=== PATIENT | male | born 1970 | race Caucasian/White ===

== ENCOUNTER 2018-08-16 04:23 | Emergency (ER) | payer OTHER ==
[~2018-08-16] VITALS: Ht 167.6 cm; Wt 72.6 kg
[2018-08-16] MEDS ORDERED: Thiamine HCl 100 MG in D5W 55 ML IVPB STA (04:27)
[2018-08-16 04:30] VITALS: BP 105/82
[2018-08-16] MEDS ORDERED: LORazepam Inj 2mg/ml 1ml IV ONE (04:30)
--- NOTE | 2018-08-16 04:36 | Emergency Room Report ---
History of Present Illness General Chief Complaint: Alcohol Intoxication Source: Patient, EMS Present Illness HPI Patient presents complaining of alcohol withdrawal. He drinks every day. He was recently admitted psychiatrically. He denies suicidal or homicidal ideation. He's been able to continue taking Seroquel and Wellbutrin even though he drinks. He keeps her fifth of hard liquor under his pillow at the [facility]. He continues drinking through the night. Hasn' t been drinking for 6 hours and feels the shakes and worried about possible DTs. The patient has some scrapes on his face. He is uncertain when they happened. He drinks to the point of blacking out. It's possible he could've had a seizure also. He denies tongue trauma. He denies any pain in his bones. No fevers, chills, cough, sore throat shortness of breath. No hematemesis or melena. The patient denies dysuria. Allergies: Coded Allergies: No Known Allergies (Unverified , 08/16/18) Patient History Past Medical History: see triage record Social History: Reports: smoking, alcohol use, drug use Social History Narrative at [facility] Reviewed Nursing Documentation: PMH: Agreed; PSxH: Agreed Nursing Documentation-PM Past Medical History: No History, Except For History Of Psychiatric Problem: Yes - schizo Review of Systems All Other Systems: negative except mentioned in HPI Physical Exam Vital Signs Date Time Temp Pulse Resp B/P (MAP) Pulse Ox O2 Delivery O2 Flow Rate FiO2 08/16/18 04:21 98.7 78 18 156/88 100 Room Air 98.8 Sp02 EP Interpretation: reviewed, normal General Appearance: no apparent distress, GCS 15, other - dishevelled Head: normocephalic Eyes: bilateral eye PERRL, bilateral eye EOMI, bilateral eye Scleral Injection ENT: moist mucus membranes - no lingual trauma, other - abrasions R lip and side of face, appear several days old Neck: supple Respiratory: lungs clear, normal breath sounds Cardiovascular #1: regular rate, rhythm Cardiovascular #2: 2+ radial (R) Gastrointestinal: normal inspection, normal bowel sounds, non tender, no mass, non-distended Musculoskeletal: back normal, gait/station normal, normal range of motion Neurologic: alert, oriented x3, motor strength/tone normal - slight tremor, DTRs symmetric, sensory intact, cerebellar normal, normal gait, speech normal - slightly pressured Psychiatric: no suicidal/homicidal ideation, anxious Skin: warm/dry, abrasions - R face Medical Decision Making Diagnostic Impression: Primary Impression: Acute alcoholic intoxication Qualified Codes: F10.929 - Alcohol use, unspecified with intoxication, unspecified Additional Impressions: Amphetamine abuse Schizophrenia Qualified Codes: F20.3 - Undifferentiated schizophrenia ER Course Patient presents with alleged alcohol withdrawal. I differential includes all called withdrawal, impending DTs, electrolyte imbalance, exacerbation of schizophrenia, anxiety amongst others. The patient will be evaluated with EKG, chest x-ray and labs. CT the head is not indicated at this time as he has a nonfocal neurologic exam. The patient will receive IV hydration, thiamine and Ativan. He will have cardiac monitoring while in the emergency department. No chest symptoms, CXR not indicated. Tetanus and bacitracin ordered. EKG without injury. Labs with normal CBC. CMP with min elevated glucose, alk phos. Calcium low, but also albumen also low. Urine tox + for amphetamines. BAL 175. Patient sleeping, easily awakened. Discussed findings and treatment plan. Patient stable for outpatient observation and treatment. Last Vital Signs Date Time Temp Pulse Resp B/P (MAP) Pulse Ox O2 Delivery O2 Flow Rate FiO2 08/16/18 06:11 77 16 115/82 93 Room Air 08/16/18 04:30 98.8 98.8 EKG Diagnostic Results Rate: normal Rhythm: NSR ST Segments: no acute changes Rhythm Strip Diag. Results EP Interpretation: yes Rhythm: NSR, no PVC's, no ectopy Last Vital Signs Date Time Temp Pulse Resp B/P (MAP) Pulse Ox O2 Delivery O2 Flow Rate FiO2 08/16/18 07:15 98.3 80 15 106/70 93 Room Air 98.3 Status: improved Disposition: HOME, SELF-CARE Condition: Improved Ken Bingham M.D. Aug 16, 2018 04:36
[2018-08-16 04:55] LABS: APPEARANCE,URINE CLEAR; BILIRUBIN, URINE NEGATIVE (NEGATIVE); GLUCOSE, URINE (UA) NEGATIVE (NEGATIVE); KETONES,URINE NEGATIVE (NEGATIVE); LEUKOCYTE ESTERASE ,URINE NEGATIVE (NEGATIVE); NITRITE,URINE NEGATIVE (NEGATIVE); PH,URINE 5 (4.5-8.0); UROBILINOGEN,URINE NORMAL MG/DL (0.0-1.0)
[2018-08-16 04:56] LABS: BASOPHILS % (AUTO) 0.8 % (0.0-2.0); EOSINOPHILS % (AUTO) 2.2 % (0.0-3.0); HEMATOCRIT 47.1 % (42.0-52.0); LYMPHOCYTES % (AUTO) 51.4 % (20.0-45.0); MEAN CORPUSCULAR VOLUME 83 FL (80-99); MONOCYTES % (AUTO) 10.6 % (1.0-10.0); PLATELET COUNT 289 K/UL (150-450); RED BLOOD COUNT 5.69 M/UL (4.70-6.10); WHITE BLOOD COUNT 7.6 K/UL (4.8-10.8)
[2018-08-16 04:59] LABS: COLOR,URINE YELLOW; PROTEIN,URINE NEGATIVE (NEGATIVE)
[2018-08-16 05:07] LABS: ANION GAP 13 mmol/L (5-15); BLOOD UREA NITROGEN 18 mg/dL (7-18); CALCIUM 7.9 MG/DL (8.5-10.1); CARBON DIOXIDE 23 MMOL/L (21-32); CHLORIDE 105 MMOL/L (98-107); POTASSIUM 3.5 MMOL/L (3.5-5.1); SODIUM 141 MMOL/L (136-145)
[2018-08-16 05:11] LABS: ALANINE AMINOTRANSFERASE 31 U/L (12-78); ALBUMIN 3.3 G/DL (3.4-5.0); ALBUMIN/GLOBULIN RATIO 0.8 (1.0-2.7); ALKALINE PHOSPHATASE 137 U/L (46-116); ASPARTATE AMINO TRANSFERASE 21 U/L (15-37); BILIRUBIN,TOTAL 0.2 MG/DL (0.2-1.0); CREATINE KINASE 62 U/L (26-308)
[2018-08-16] MEDS ORDERED: Tetanus/Diptheria/Pertussis Vaccine 0.5ml Syr IM ONE (05:15)
[2018-08-16] MEDS ORDERED: Bacitracin Oint UD TOPIC ONE (05:15)
[2018-08-16 06:11] VITALS: BP 115/82
[2018-08-16 07:15] VITALS: BP 106/70
--- NOTE | 2018-08-17 12:01 | Cardiology Report ---
APPROVED REPORT EKG Measurement Heart [id number] Normal sinus rhythm Normal ECG
== END 2018-08-16 07:22 | disposition home or self-care (01) ==
LOC: EDBD 04:23 → EMR 05:21
DX: F10.129 Alcohol abuse with intoxication, unspecified (principal); F15.10 Other stimulant abuse, uncomplicated; F20.9 Schizophrenia, unspecified
CPT/HCPCS: 36415; 80053; 80307; 80329; 81003; 82550; 85025; 90471; 90715; 93005; 96361; 96365; 96375; 99284

== ENCOUNTER 2018-08-28 09:42 | Emergency (ER) | payer OTHER ==
[~2018-08-28] VITALS: Ht 167.6 cm; Wt 68.0 kg
[2018-08-28 09:45] VITALS: BP 129/78
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
[2018-08-28] MEDS ORDERED: Lidocaine 1% MPF 10mg/ml 5ml INJ ONE (10:15)
[2018-08-28] MEDS ORDERED: Bacitracin Oint UD TOPIC ONE (10:15)
[2018-08-28 10:47] LABS: BASOPHILS % (AUTO) 1.1 % (0.0-2.0); EOSINOPHILS % (AUTO) 1.6 % (0.0-3.0); HEMATOCRIT 48.1 % (42.0-52.0); HEMOGLOBIN 16.2 G/DL (14.2-18.0); LYMPHOCYTES % (AUTO) 40.6 % (20.0-45.0); MEAN CORPUSCULAR VOLUME 82 FL (80-99); MONOCYTES % (AUTO) 6.5 % (1.0-10.0); NEUTROPHILS % (AUTO) 50.3 % (45.0-75.0); PLATELET COUNT 224 K/UL (150-450); RED BLOOD COUNT 5.89 M/UL (4.70-6.10); RED CELL DISTRIBUTION WIDTH 12.6 % (11.6-14.8); WHITE BLOOD COUNT 5.5 K/UL (4.8-10.8)
[2018-08-28 11:01] LABS: ANION GAP 11 mmol/L (5-15); BLOOD UREA NITROGEN 12 mg/dL (7-18); CARBON DIOXIDE 26 MMOL/L (21-32); CHLORIDE 105 MMOL/L (98-107); CREATININE 0.7 MG/DL (0.55-1.30); POTASSIUM 3.8 MMOL/L (3.5-5.1); SODIUM 142 MMOL/L (136-145)
[2018-08-28 11:09] LABS: ALANINE AMINOTRANSFERASE 35 U/L (12-78); ALBUMIN/GLOBULIN RATIO 0.7 (1.0-2.7); ALKALINE PHOSPHATASE 228 U/L (46-116); ASPARTATE AMINO TRANSFERASE 64 U/L (15-37); BILIRUBIN,TOTAL 0.2 MG/DL (0.2-1.0); CREATINE KINASE 115 U/L (26-308)
[2018-08-28 11:51] LABS: APPEARANCE,URINE CLEAR; BILIRUBIN, URINE NEGATIVE (NEGATIVE); GLUCOSE, URINE (UA) NEGATIVE (NEGATIVE); KETONES,URINE NEGATIVE (NEGATIVE); LEUKOCYTE ESTERASE ,URINE NEGATIVE (NEGATIVE); NITRITE,URINE NEGATIVE (NEGATIVE); PH,URINE 6 (4.5-8.0); PROTEIN,URINE NEGATIVE (NEGATIVE); UROBILINOGEN,URINE NORMAL MG/DL (0.0-1.0)
[2018-08-28 11:53] LABS: COLOR,URINE YELLOW
[2018-08-28] MEDS ORDERED: LORazepam Inj 2mg/ml 1ml IV ONE (12:45)
[2018-08-28 13:15] VITALS: BP 128/76
[2018-08-28 15:39] VITALS: BP 132/88
[2018-08-28] MEDS ORDERED: BACITRACIN15 GM TOPIC (16:05)
[2018-08-28 16:15] VITALS: BP 132/88
[2018-08-29] MEDS ORDERED: LIBRIUM10 MG ORAL (12:07)
== END 2018-08-28 16:16 | disposition home or self-care (01) ==
LOC: EDBD 09:42 → EMR 10:07
DX: S01.21XA Laceration without foreign body of nose, initial encounter (principal); S01.411A Laceration without foreign body of right cheek and temporomandibular area, initial encounter; Y04.2XXA Assault by strike against or bumped into by another person, initial encounter; Y92.9 Unspecified place or not applicable; I10 Essential (primary) hypertension; F15.10 Other stimulant abuse, uncomplicated; F10.129 Alcohol abuse with intoxication, unspecified
CPT/HCPCS: 36415; 80053; 80307; 80329; 81003; 82550; 85025; 96361; 96374; 99284

== ENCOUNTER 2018-08-28 20:15 | Inpatient (IN) | payer OTHER ==
[~2018-08-28] VITALS: Ht 167.6 cm; Wt 68.0 kg
[~2018-08-28 20:15] MED LIST: BACITRACIN15 GM TOPIC
[2018-08-28 20:18] VITALS: BP 137/109
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
[2018-08-28 20:58] LABS: BASOPHILS % (AUTO) 0.3 % (0.0-2.0); EOSINOPHILS % (AUTO) 0.8 % (0.0-3.0); HEMATOCRIT 47.6 % (42.0-52.0); HEMOGLOBIN 16.1 G/DL (14.2-18.0); LYMPHOCYTES % (AUTO) 23.5 % (20.0-45.0); MEAN CORPUSCULAR VOLUME 83 FL (80-99); MONOCYTES % (AUTO) 5.8 % (1.0-10.0); NEUTROPHILS % (AUTO) 69.5 % (45.0-75.0); PLATELET COUNT 234 K/UL (150-450); RED BLOOD COUNT 5.72 M/UL (4.70-6.10); RED CELL DISTRIBUTION WIDTH 12.2 % (11.6-14.8); WHITE BLOOD COUNT 9.6 K/UL (4.8-10.8)
[2018-08-28 21:15] LABS: ANION GAP 9 mmol/L (5-15); BLOOD UREA NITROGEN 11 mg/dL (7-18); CARBON DIOXIDE 32 MMOL/L (21-32); CHLORIDE 103 MMOL/L (98-107); CREATININE 0.9 MG/DL (0.55-1.30); POTASSIUM 3.4 MMOL/L (3.5-5.1); SODIUM 144 MMOL/L (136-145)
[2018-08-28 21:20] LABS: ALANINE AMINOTRANSFERASE 36 U/L (12-78); ALBUMIN/GLOBULIN RATIO 0.7 (1.0-2.7); ALKALINE PHOSPHATASE 226 U/L (46-116); ASPARTATE AMINO TRANSFERASE 41 U/L (15-37); BILIRUBIN,TOTAL 0.2 MG/DL (0.2-1.0)
[2018-08-28 22:04] VITALS: BP 132/87
[2018-08-28] MEDS ORDERED: LORazepam 1mg tab ORAL ONE (22:45)
[2018-08-28 23:29] VITALS: BP 120/79
[2018-08-28] MEDS ORDERED: LORazepam Inj 2mg/ml 1ml IV ONE (23:45)
[2018-08-29 00:02] VITALS: BP 120/79
[2018-08-29 01:34] VITALS: BP 125/92
[2018-08-29 04:00] VITALS: BP 132/92
[2018-08-29] MEDS ORDERED: LORazepam Inj 2mg/ml 1ml IV PRN (07:15)
[2018-08-29 08:00] VITALS: BP 144/87
[2018-08-29] MEDS ORDERED: D5 1/2NS w/KCl 20mEq 1,000 ML IV SCH (08:00)
[2018-08-29] MEDS ORDERED: Thiamine 100mg tab ORAL SCH (09:00)
[2018-08-29 12:00] VITALS: BP 115/76
[2018-08-29] MEDS ORDERED: LIBRIUM10 MG ORAL (12:07)
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
[2018-08-29] MEDS ORDERED: Thiamine 100mg in D5W 55ml IVPB SCH (14:30)
[2018-08-29] MEDS ORDERED: Folic Acid 1 MG, Magnesium Sulfate 2,000 MG, Multivitamin - 12 Injection 10 ML in NS 10... IV SCH (14:30)
--- NOTE | 2018-08-29 15:01 | History & Physical ---
History and Physical History & Physicial job # [id number] Milan Baker MD Aug 29, 2018 15:01
[2018-08-29 16:00] VITALS: BP 118/79
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
== END 2018-08-29 18:00 | disposition home or self-care (01) | DRG 775 ==
LOC: EDBD 20:15 → EMR 20:45 → EDBEDREQ 23:42 → 2E 08-29 00:02 → EDBEDREQ 08-29 00:52 → 2E 08-29 01:45
DX: F10.239 Alcohol dependence with withdrawal, unspecified (principal); F10.229 Alcohol dependence with intoxication, unspecified; F20.9 Schizophrenia, unspecified; I10 Essential (primary) hypertension; F15.10 Other stimulant abuse, uncomplicated
CPT/HCPCS: 36415; 80053; 80307; 80329; 82962; 83690; 85025; 87081; 96361; 96374; 96375; 99285; J2405

== ENCOUNTER 2018-09-08 04:40 | Emergency (ER) | payer OTHER ==
[~2018-09-08] VITALS: Ht 167.6 cm; Wt 72.6 kg
[~2018-09-08 04:40] MED LIST changes: +LIBRIUM10 MG ORAL
[2018-09-08] MEDS ORDERED: chlordiazePOXIDE 25mg Cap ORAL ONE (05:00)
[2018-09-08] MEDS ORDERED: LIBRIUM25 MG ORAL (05:01)
--- NOTE | 2018-09-08 05:01 | Emergency Room Report ---
History of Present Illness General Chief Complaint: To Be Triaged Source: Patient Present Illness [facility] This a 48-year-old male with a history of high blood pressure and alcohol abuse. He has a history of alcohol seizure. He presents with chief complaint of withdrawal symptoms. Onset about 2 hours ago. He felt nervous and shaky. Last drink was 4 hours ago. He was recently admitted for the same thing couple weeks ago. Denies any suicidal thoughts homicidal thought. Denies any drug abuse. Denies any other trauma. Allergies: Coded Allergies: No Known Allergies (Unverified , 08/16/18) Patient History Past Medical History: see triage record, old chart reviewed, HTN, seizures Past Surgical History: other Pertinent Family History: none Social History: Reports: alcohol use Immunizations: other Reviewed Nursing Documentation: PMH: Agreed; PSxH: Agreed Nursing Documentation-PMH Hx Cardiac Problems: Yes Hx Hypertension: Yes Hx Cancer: No Hx Gastrointestinal Problems: No Hx Seizures: Yes Review of Systems Eye: Denies: eye pain, blurred vision ENT: Denies: ear pain, nose congestion, throat swelling Respiratory: Denies: cough, shortness of breath Cardiovascular: Denies: chest pain, palpitations Gastrointestinal: Denies: abdominal pain, diarrhea, nausea, vomiting Musculoskeletal: Denies: back pain, joint pain Skin: Denies: rash Neurological: Denies: headache, numbness Endocrine: Denies: increased thirst, increased urine Hematologic/Lymphatic: Denies: easy bruising All Other Systems: negative except mentioned in HPI Physical Exam vitals unremarkable. Sp02 EP Interpretation: reviewed, normal General Appearance: well appearing, no apparent distress, alert Head: normocephalic, atraumatic Eyes: bilateral eye PERRL, bilateral eye EOMI ENT: hearing grossly normal, normal pharynx Neck: full range of motion, supple, no meningismus Respiratory: chest non-tender, lungs clear, normal breath sounds Cardiovascular #1: regular rate, rhythm, no murmur Gastrointestinal: normal bowel sounds, non tender, no mass, no organomegaly, no bruit, non-distended Musculoskeletal: back normal, gait/station normal, normal range of motion Psychiatric: mood/affect normal Skin: warm/dry Medical Decision Making Diagnostic Impression: Primary Impression: Alcohol withdrawal Qualified Codes: F10.230 - Alcohol dependence with withdrawal, uncomplicated ER Course Patient presents with symptom of alcohol withdrawal. Clinically heart rate stable. Blood pressure stable. Librium given here. I see no need for admission. We'll discharge home. No criteria for 5150. Status: improved Disposition: HOME, SELF-CARE Condition: Stable Scripts Chlordiazepoxide (Chlordiazepoxide HCl) 25 Mg Capsule 25 MG ORAL THREE TIMES A DAY, #15 CAP 0 Refills Prov: Jose Ellis MD 09/08/18 Additional Instructions: Follow-up with your doctor in 7 days. Stop Drinking alcohol. Go to rehabilitation. Return if worse. Jose Ellis MD Sep 08, 2018 05:01
[2018-09-08] MEDS ORDERED: ATENOLOL100 MG ORAL (05:19)
[2018-09-08 05:35] VITALS: BP 145/98
== END 2018-09-08 05:42 | disposition home or self-care (01) ==
LOC: EMR 05:14
DX: F10.239 Alcohol dependence with withdrawal, unspecified (principal); I10 Essential (primary) hypertension
CPT/HCPCS: 99282

== ENCOUNTER 2019-08-07 12:00 | Emergency (ER) | payer OTHER ==
[~2019-08-07] VITALS: Ht 167.6 cm; Wt 72.6 kg
[~2019-08-07 12:00] MED LIST changes: +ATENOLOL100 MG ORAL; +LIBRIUM25 MG ORAL
--- NOTE | 2019-08-07 12:00 | NUR ---
ED Nurse Note: pt is aaox4, vss, and stable. Pt from a sober living Facility " [facility]" and brought in by RA 69 due to not feeling well since this morning. Pt did not specify symptoms and states he needs to go to a hospital.
[2019-08-07] MEDS ORDERED: OLANZAPINE20 MG ORAL (12:03)
[2019-08-07] MEDS ORDERED: AMLODIPINE BES2.5 MG ORAL (12:03)
--- NOTE | 2019-08-07 12:07 | NUR ---
ED Nurse Note: Pt from a sober living Facility " [facility]" and brought in by RA 69 due to not feeling well since this morning. Pt did not specify symptoms and states he needs to go to a hospital. AAO x4 ambulates with steady gait with non labored breathing. Noted pt to be restless.
[2019-08-07] MEDS ORDERED: LORazepam Inj 2mg/ml 1ml IV ONE (12:15)
--- NOTE | 2019-08-07 12:27 | Diagnostic Imaging Report ---
Indication: Dyspnea Comparison: None A single view chest radiograph was obtained. Findings: Cardiomediastinal appearance is within normal limits for age. The lungs are clear. Pulmonary vascularity is appropriate. The diaphragmatic contour is smooth and costophrenic angles are sharp. No pleural effusions are identified. The bones are unremarkable. Impression: No acute findings
[2019-08-07] MEDS ORDERED: Nitroglycerin 2% oint pkt TOPIC ONE (12:45)
[2019-08-07 12:50] LABS: ANION GAP 7 mmol/L (5-15); BLOOD UREA NITROGEN 19 mg/dL (7-18); CALCIUM 8.7 MG/DL (8.5-10.1); CARBON DIOXIDE 28 MMOL/L (21-32); CHLORIDE 104 MMOL/L (98-107); CREATININE 1.1 MG/DL (0.55-1.30); POTASSIUM 3.7 MMOL/L (3.5-5.1); SODIUM 139 MMOL/L (136-145)
--- NOTE | 2019-08-07 12:50 | Emergency Room Report ---
History of Present Illness General Chief Complaint: General Complaint Source: Patient, Medical Record Present Illness HPI 48-year-old male presents with palpitations x3 days, feelings of anxiousness, he denies any chest pain shortness of breath, no aggravating or alleviating factors severity is moderate, constant patient denies any fevers chills cough congestion patient presents for evaluation. Allergies: Coded Allergies: No Known Allergies (Unverified , 08/16/18) Patient History Past Medical History: see triage record Reviewed Nursing Documentation: PMH: Agreed; PSxH: Agreed Nursing Documentation-PMH Hx Cardiac Problems: Yes Hx Hypertension: Yes Hx Cancer: No Hx Gastrointestinal Problems: No Hx Seizures: Yes Review of Systems All Other Systems: negative except mentioned in HPI Physical Exam Vital Signs Date Time Temp Pulse Resp B/P (MAP) Pulse Ox O2 Delivery O2 Flow Rate FiO2 08/07/19 11:57 97.9 75 16 147/102 (117) 100 Room Air Sp02 EP Interpretation: reviewed, normal General Appearance: well appearing, no apparent distress, alert Head: normocephalic, atraumatic Eyes: bilateral eye PERRL, bilateral eye EOMI ENT: uvula midline, moist mucus membranes Neck: supple, thyroid normal, supple/symm/no masses Respiratory: lungs clear, no respiratory distress, no retraction, no accessory muscle use Cardiovascular #1: normal peripheral pulses, regular rate, rhythm, no edema, no gallop, no murmur Gastrointestinal: non tender, soft, no guarding, no rebound Musculoskeletal: normal inspection Neurologic: alert, oriented x3 Psychiatric: anxious Skin: no rash, warm/dry Medical Decision Making Diagnostic Impression: Primary Impression: Palpitations ER Course 48-year-old male presents with palpitations x3 days, low suspicion for ACS low suspicion for thyroid storm, possible anxiety possible drug use Patient negative troponin. chest x-ray negative, EKG negative Patient is requesting Ativan will provide patient with a dose of Ativan here disposition home with return precautions Laboratory Tests Test 08/07/19 12:20 White Blood Count 7.3 K/UL (4.8-10.8) Red Blood Count 5.24 M/UL (4.70-6.10) Hemoglobin 14.3 G/DL (14.2-18.0) Hematocrit 43.0 % (42.0-52.0) Mean Corpuscular Volume 82 FL (80-99) Mean Corpuscular Hemoglobin 27.3 PG (27.0-31.0) Mean Corpuscular Hemoglobin Concent 33.3 G/DL (32.0-36.0) Red Cell Distribution Width 13.0 % (11.6-14.8) Platelet Count 306 K/UL (150-450) Mean Platelet Volume 6.7 FL (6.5-10.1) Neutrophils (%) (Auto) 54.6 % (45.0-75.0) Lymphocytes (%) (Auto) 33.2 % (20.0-45.0) Monocytes (%) (Auto) 8.9 % (1.0-10.0) Eosinophils (%) (Auto) 2.3 % (0.0-3.0) Basophils (%) (Auto) 1.0 % (0.0-2.0) Urine HCG, Qualitative Pending Sodium Level 139 MMOL/L (136-145) Potassium Level 3.7 MMOL/L (3.5-5.1) Chloride Level 104 MMOL/L (98-107) Carbon Dioxide Level 28 MMOL/L (21-32) Anion Gap 7 mmol/L (5-15) Blood Urea Nitrogen 19 mg/dL (7-18) H Creatinine 1.1 MG/DL (0.55-1.30) Estimate Glomerular Filtration Rate > 60 mL/min (>60) Glucose Level 82 MG/DL (74-106) Calcium Level 8.7 MG/DL (8.5-10.1) Total Bilirubin 0.4 MG/DL (0.2-1.0) Aspartate Amino Transferase (AST) 23 U/L (15-37) Alanine Aminotransferase (ALT) 23 U/L (12-78) Alkaline Phosphatase 114 U/L (46-116) Troponin I 0.000 ng/mL (0.000-0.056) Total Protein 7.5 G/DL (6.4-8.2) Albumin 3.4 G/DL (3.4-5.0) Globulin 4.1 g/dL Albumin/Globulin Ratio 0.8 (1.0-2.7) L Lipase 211 U/L (73-393) Thyroid Stimulating Hormone (TSH) 0.905 uiU/mL (0.358-3.740) Free Thyroxine 1.16 NG/DL (0.76-1.46) Free Triiodothyronine 2.1 pg/mL (2.3-4.2) L EKG Diagnostic Results EKG Time: 12:23 EP Interpretation: NSR, rate 65, QTc 432, no acute ST elevations, normal axis Chest X-Ray Diagnostic Results Chest X-Ray Diagnostic Results : Chest X-Ray Ordered: Yes # of Views/Limited/Complete: 1 View Indication: Other - Palpitations EP Interpretation: Yes Interpretation: no consolidation, no effusion, no pneumothorax, no acute cardiopulmonary disease Impression: No acute disease Electronically Signed by: Nii Fields MD Last Vital Signs Date Time Temp Pulse Resp B/P (MAP) Pulse Ox O2 Delivery O2 Flow Rate FiO2 08/07/19 12:06 88 15 Room Air 08/07/19 11:57 97.9 147/102 (117) 100 Disposition: HOME, SELF-CARE Condition: Stable Scripts Atenolol* (TENORMIN*) 100 Mg Tablet 100 MG ORAL DAILY, #30 TAB Prov: Nii Fields MD 08/07/19 Referrals: NON PHYSICIAN (PCP) [facility] Carlyle Piña. [facility] Patient Instructions: Palpitations Additional Instructions: The patient was provided with discharge instructions, notified to follow-up with a primary care doctor and or specialist in the next 24-48 hours, and to return to the ED if they have worsening of their symptoms. Please note that this report is being documented using [employer] technology. This can lead to erroneous entry secondary to incorrect interpretation by the dictating instrument. Nii Fields MD Aug 07, 2019 12:50
[2019-08-07 12:56] LABS: EOSINOPHILS % (AUTO) 2.3 % (0.0-3.0); HEMOGLOBIN 14.3 G/DL (14.2-18.0); LYMPHOCYTES % (AUTO) 33.2 % (20.0-45.0); MEAN CORPUSCULAR VOLUME 82 FL (80-99); MONOCYTES % (AUTO) 8.9 % (1.0-10.0); NEUTROPHILS % (AUTO) 54.6 % (45.0-75.0); PLATELET COUNT 306 K/UL (150-450); RED BLOOD COUNT 5.24 M/UL (4.70-6.10); WHITE BLOOD COUNT 7.3 K/UL (4.8-10.8)
[2019-08-07 13:06] LABS: ALANINE AMINOTRANSFERASE 23 U/L (12-78); ALBUMIN 3.4 G/DL (3.4-5.0); ALBUMIN/GLOBULIN RATIO 0.8 (1.0-2.7); ALKALINE PHOSPHATASE 114 U/L (46-116); ASPARTATE AMINO TRANSFERASE 23 U/L (15-37); BILIRUBIN,TOTAL 0.4 MG/DL (0.2-1.0)
[2019-08-07] MEDS ORDERED: ATENOLOL100 MG ORAL (13:44)
[2019-08-07] MEDS ORDERED: LORazepam 1mg tab ORAL ONE (13:45)
[2019-08-07 14:00] VITALS: BP 147/102
--- NOTE | 2019-08-07 14:00 | NUR ---
ER DISCHARGE NOTE: Patient is cleared to be discharged per ERMD, pt is aox4, on room air, with stable vital signs. pt was given dc and prescription instructions, pt was able to verbalize understanding, pt id band and iv site removed without complications. pt is able to ambulate with steady gait. pt took all belongings. pt states pain has improved.
[2019-08-09] MEDS ORDERED: AMLODIPINE BES2.5 MG ORAL (02:58)
[2019-08-09] MEDS ORDERED: ATENOLOL100 MG ORAL (02:58)
--- NOTE | 2019-08-11 14:27 | Cardiology Report ---
APPROVED REPORT EKG Measurement Heart [id number] Normal sinus rhythm Normal ECG
== END 2019-08-07 14:00 | disposition home or self-care (01) ==
LOC: EDBD 12:00 → EMR 12:24
DX: R00.2 Palpitations (principal); I10 Essential (primary) hypertension; F41.9 Anxiety disorder, unspecified
CPT/HCPCS: 36415; 71045; 80053; 83690; 84439; 84443; 84481; 84484; 85025; 93005; 96374; Z7502; 99284

== ENCOUNTER 2019-08-09 02:59 | Emergency (ER) | payer OTHER ==
[~2019-08-09] VITALS: Ht 165.1 cm; Wt 74.8 kg
[~2019-08-09 02:59] MED LIST changes: +AMLODIPINE BES2.5 MG ORAL; +OLANZAPINE20 MG ORAL
--- NOTE | 2019-08-09 03:36 | Emergency Room Report ---
History of Present Illness General Chief Complaint: Palpitations Source: Patient Present Illness HPI Disclaimer: Please note that this report is being documented using code[employer] technology. This can lead to erroneous entry secondary to incorrect interpretation by the dictating instrument. HPI: 48-year-old male with history of hypertension and anxiety presents for evaluation of palpitations. He was seen in the emergency department yesterday complaining of 3 days palpitations and tachycardia. He feels anxious and uneasy all the time but cannot recall a specific trigger for the symptoms. He denies any specific chest pain, shortness of breath, exertional dyspnea, orthopnea, abdominal pain or discomfort, nausea, vomiting, fever, chills or any other changes in his health. He states used to be treated with Ativan but is no longer seeing a PMD and therefore is no longer receiving Ativan. He was treated with anxiolytics yesterday and discharged to follow-up with 1 of the clinics which she has not been able to do yet. He states he has no change in his condition is simply wants another dose of medication to treat his anxiety. Former smoker. Not a diabetic, reports a family history of heart disease though occurring later in life and only in his father. PMH: Hypertension, anxiety PSH: Denies Allergies: Denies Social Hx: Former smoker, denies alcohol or drug use Allergies: Coded Allergies: No Known Allergies (Unverified , 08/16/18) Nursing Documentation-PMH Past Medical History: No History, Except For Hx Cardiac Problems: Yes Hx Hypertension: Yes Hx Cancer: No Hx Gastrointestinal Problems: No Hx Seizures: Yes Review of Systems All Other Systems: negative except mentioned in HPI Physical Exam Vital Signs Date Time Temp Pulse Resp B/P (MAP) Pulse Ox O2 Delivery O2 Flow Rate FiO2 08/09/19 02:53 98.2 83 18 141/94 (110) 98 Room Air General: Awake and alert, no acute distress HEENT: NC/AT. EOMI. Neck: Supple, trachea midline Chest Wall: No tenderness, no deformity Cardiovascular: RRR. S1 and S2 normal. No murmur appreciated Resp: Normal work of breathing. No cough, wheezing or crackles appreciated Skin: Intact. No abrasions, laceration or rash over the exposed skin MSK: Normal tone and bulk. Moving all extremities. No obvious deformity. Neuro: Awake and alert. Mentating appropriately. Medical Decision Making Diagnostic Impression: Primary Impression: Anxiety Additional Impression: Palpitations ER Course 48-year-old male with history of hypertension anxiety presents for evaluation of palpitations. Patient was seen in the emergency department yesterday for similar symptoms and states that nothing is changed. He has a prior history of alcohol abuse, amphetamine use but states he is not using these medications at this time. He arrives with stable vital signs, no tachycardia. EKG on arrival shows sinus rhythm, left axis deviation though this is minor, no ST segment changes otherwise appears unremarkable. This is unchanged from yesterday. The patient is denying chest pain and simply states he has an uneasy feeling consistent with his anxiety. We will treat him with oral anxiolytics and monitor in the emergency department. If his symptoms are not completely resolved we will advance work-up however at this time he is low risk for chest pain given his recent ED evaluation. EKG Diagnostic Results EKG Time: 02:54 Rate: normal Rhythm: NSR ST Segments: no acute changes Other Impression Sinus rhythm, left axis deviation, normal intervals, no ST segment changes. Rhythm Strip Diag. Results Rhythm Strip Time: 02:54 EP Interpretation: yes Rate: 80s Rhythm: NSR, no PVC's, no ectopy Reevaluation Time: 04:30 Last Vital Signs Date Time Temp Pulse Resp B/P (MAP) Pulse Ox O2 Delivery O2 Flow Rate FiO2 08/09/19 02:53 98.2 83 18 141/94 (110) 98 Room Air Reevaluation Impression Patient symptoms completely resolved after receiving oral Valium. His EKG is unchanged from his visit yesterday. He offers no new symptoms or complaints at this time. He understands that this is a chronic condition that he will require long-term medication for and a doctor to follow him regularly. We will provide names and numbers of clinics in the area for him to get in touch with to establish himself as a new patient. If symptoms persist he may require an outpatient cardiology evaluation however at this time do not believe it is emergent. He was instructed to return to the emergency department if he has any return of his symptoms. He understands and agrees with the treatment plan was discharged. 0522 Patient was discharged to the waiting room however is requesting a dose of his atenolol as he will be waiting for a taxi for some time and states he does not want to miss his morning dose. He denies any chest pain or shortness of breath and just wants his home medication prior to leaving the emergency department. We will provide it for him, 100 mg atenolol. Disposition: HOME, SELF-CARE Condition: Stable Referrals: Carlyle WEBBER,REFERRING (PCP) Carlos Pacheco MD Aug 09, 2019 03:36
--- NOTE | 2019-08-09 03:52 | NUR ---
ED Nurse Note: Patient brought in by ambulance for palpitations. Patient appears highly aggitated and is actively talking to himself. Will continue to monitor.
[2019-08-09 03:53] VITALS: BP 141/94
--- NOTE | 2019-08-09 04:21 | NUR ---
ED Nurse Note: Patient cleared for discharge to home via a cab. PAtient is A&Ox4, ambulatory with steady gait. Patient ID band removed, Patient verblized understanding of discharge instructions.
[2019-08-09] MEDS ORDERED: Atenolol 25mg tab ONE (05:29)
[2019-08-09] MEDS ORDERED: Atenolol 25mg tab ORAL ONE (05:30)
[2019-08-09 05:33] VITALS: BP 156/86
--- NOTE | 2019-08-09 05:37 | NUR ---
Patient came back, speaking with , asking for tenormin. Administered ordered dose, patient states he is happy now (BP-156/84-HR 86,RR-18).
== END 2019-08-09 04:28 | disposition home or self-care (01) ==
LOC: EDBD 02:59 → EMR 03:25
DX: F41.9 Anxiety disorder, unspecified (principal); R00.2 Palpitations; I10 Essential (primary) hypertension
CPT/HCPCS: 99283

== ENCOUNTER 2019-08-09 12:00 | Emergency (ER) | payer OTHER ==
[~2019-08-09] VITALS: Ht 167.6 cm; Wt 72.6 kg
--- NOTE | 2019-08-09 12:15 | NUR ---
ED Nurse Note: pt presensts to ED c/o anxiety and "pain in his chest" that he reports radiating from the middle of his chest to the left which he rates an 8/10. he was last seen here 2 days ago for similar symptoms. pt states that he is currently staying in [place] [facility]. His vital signs are stable and he does not appear to be in any distress.
[2019-08-09 12:20] VITALS: BP 126/98
[2019-08-09 12:38] VITALS: BP 101/61
--- NOTE | 2019-08-09 12:38 | NUR ---
ER DISCHARGE NOTE: Patient is cleared to be discharged per ERMD, pt is aox4, on room air, with stable vital signs. pt was given dc instructions and bus tokens. pt was able to verbalize understanding, pt id band removed without complications. I offered pt a meal and some clothing but he declined both. pt is able to ambulate with steady gait and took all belongings.
--- NOTE | 2019-08-09 13:52 | Emergency Room Report ---
History of Present Illness General Chief Complaint: General Complaint Source: Patient, Medical Record Present Illness HPI Patient presents reporting that he feels anxious and requires medication to make him feel better Denies any headache denies any chest pain he does feel a palpitation sensation Denies any vomiting or diarrhea Denies any dysuria frequency denies any recent drug abuse Patient reports that he has had problems requiring Anxiety medications before however feels that recently it has exacerbated Allergies: Coded Allergies: No Known Allergies (Unverified , 08/16/18) Patient History Past Medical History: see triage record Reviewed Nursing Documentation: PMH: Agreed; PSxH: Agreed Nursing Documentation-PMH Past Medical History: No History, Except For Hx Cardiac Problems: Yes Hx Hypertension: Yes Hx Cancer: No Hx Gastrointestinal Problems: No Hx Seizures: Yes Review of Systems All Other Systems: negative except mentioned in HPI Physical Exam Vital Signs Date Time Temp Pulse Resp B/P (MAP) Pulse Ox O2 Delivery O2 Flow Rate FiO2 08/09/19 12:09 97.2 75 18 125/77 (93) 95 Room Air Sp02 EP Interpretation: reviewed, normal General Appearance: well appearing, no apparent distress Head: normocephalic, atraumatic Eyes: bilateral eye PERRL, bilateral eye EOMI ENT: hearing grossly normal, normal pharynx, TMs + canals normal, uvula midline Neck: full range of motion, supple, no meningismus, no bony tend Respiratory: lungs clear, normal breath sounds, no rhonchi, no respiratory distress, no retraction, no accessory muscle use Cardiovascular #1: normal peripheral pulses, regular rate, rhythm, no edema, no gallop, no JVD, no murmur Gastrointestinal: normal bowel sounds, non tender, soft, no mass, no organomegaly, non-distended, no guarding, no hernia, no pulsatile mass, no rebound Genitourinary: no CVA tenderness Musculoskeletal: normal inspection Neurologic: oriented x3, responsive, api product manager III-XII nml as tested, motor strength/ tone normal, sensory intact Psychiatric: mood/affect normal Skin: no rash Lymphatic: normal inspection, no adenopathy Medical Decision Making Diagnostic Impression: Primary Impression: Palpitations ER Course Patient is a fairly complex patient with multiple differential to consideration including but not limited to cardiac cardiopulmonary and vascular emergencies On cardiac monitoring the patient is hemodynamically stable heart rate is in the 70s blood pressure is appropriate Patient does not show any classic symptoms of opiate or benzodiazepine withdrawal Patient has had several visits recently at this time review of cures also reveals recent multiple benzodiazepine medications that were filled at different facilities Patient is recommended to follow closely with primary physician for continued outpatient follow-up and return with any changes Rhythm Strip Diag. Results EP Interpretation: yes Rate: 72 Rhythm: NSR, no PVC's, no ectopy Last Vital Signs Date Time Temp Pulse Resp B/P (MAP) Pulse Ox O2 Delivery O2 Flow Rate FiO2 08/09/19 12:38 77 14 101/61 95 Room Air 08/09/19 12:20 97.2 Disposition: HOME, SELF-CARE Condition: Improved Referrals: [facility] Carlyle Sahu [facility]. [facility] Patient Instructions: Palpitations, [id number] Additional Instructions: Patient is provided with the discharge instructions notified to follow up with primary doctor in the next 2-3 days otherwise return to the er with any worsening symptoms. Please note that this report is being documented using [employer] technology. This can lead to erroneous entry secondary to incorrect interpretation by the dictating instrument. Maria Akbar DO Aug 09, 2019 13:52
== END 2019-08-09 12:38 | disposition home or self-care (01) ==
LOC: EMR 12:25
DX: R00.2 Palpitations (principal); F41.9 Anxiety disorder, unspecified; I10 Essential (primary) hypertension
CPT/HCPCS: 99282

== ENCOUNTER 2020-07-06 23:40 | Emergency (ER) | payer MEDICAID ==
[~2020-07-06] VITALS: Ht 157.5 cm; Wt 68.0 kg
[~2020-07-06 23:40] MED LIST changes: +PRILOSEC OTC20 MG ORAL
[2020-07-06 23:45] VITALS: BP 101/62
--- NOTE | 2020-07-06 23:45 | NUR ---
ED Nurse Note: brought in by franco ra 26 c/o cp onset tonight states midsternal nonradiating. 364 mg aspirin given en route. vss, nad, aaox4, ambulatory, ermd at bedside
--- NOTE | 2020-07-06 23:49 | Emergency Room Report ---
History of Present Illness General Chief Complaint: Chest Pain Source: Patient, Medical Record, EMS Present Illness HPI This a 49-year-old male well-known to EMS and here. He presents with chief complaint of chest pain. He has a history of methamphetamine abuse and alcohol abuse. He said he has not used meth for 2 days. Last drink was 4 hours ago. He complained of chest pain. He points to the epigastric and mid chest area. No radiation. Pain is constant. No diaphoresis. No exertional component. He said he felt like he is going to withdrawal. Similar symptom in the past. EMS said they ran on him 3 times today. Allergies: Coded Allergies: No Known Allergies (Unverified , 07/06/20) COVID-19 Screening Contact w/high risk pt: No Experienced COVID-19 symptoms?: No COVID-19 Testing performed ELECTROCARDIOGRAPH REPAIRER: No Patient History Past Medical History: see triage record, old chart reviewed Past Surgical History: none Pertinent Family History: none Social History: Reports: alcohol use, drug use Immunizations: other Reviewed Nursing Documentation: PMH: Agreed; PSxH: Agreed Nursing Documentation-PMH Past Medical History: No History, Except For Hx Cardiac Problems: Yes - hep c Hx Hypertension: Yes Hx Cancer: No Hx Gastrointestinal Problems: No Hx Seizures: Yes Review of Systems Eye: Denies: eye pain, blurred vision ENT: Denies: ear pain, nose congestion, throat swelling Respiratory: Denies: cough, shortness of breath Cardiovascular: Reports: chest pain; Denies: palpitations Gastrointestinal: Denies: abdominal pain, diarrhea, nausea, vomiting Musculoskeletal: Denies: back pain, joint pain Skin: Denies: rash Neurological: Denies: headache, numbness Endocrine: Denies: increased thirst, increased urine Hematologic/Lymphatic: Denies: easy bruising All Other Systems: negative except mentioned in HPI Physical Exam Vital Signs Date Time Temp Pulse Resp B/P (MAP) Pulse Ox O2 Delivery O2 Flow Rate FiO2 07/06/20 23:41 98.8 102 20 94/61 (72) 98 Room Air Vitals unremarkable Sp02 EP Interpretation: reviewed, normal General Appearance: well appearing, no apparent distress, alert Head: normocephalic, atraumatic Eyes: bilateral eye PERRL, bilateral eye EOMI ENT: hearing grossly normal, normal pharynx Neck: full range of motion, supple, no meningismus Respiratory: chest non-tender, lungs clear, normal breath sounds Cardiovascular #1: regular rate, rhythm, no murmur Gastrointestinal: normal bowel sounds, non tender, no mass, no organomegaly, no bruit, non-distended Musculoskeletal: back normal, normal range of motion, gait/station normal Neurologic: other - Mild tremulous Psychiatric: mood/affect normal Medical Decision Making Diagnostic Impression: Primary Impression: Chest pain Qualified Codes: R07.9 - Chest pain, unspecified Additional Impressions: Anxiety Amphetamine abuse Alcohol abuse ER Course Patient presents with chest pain. This probably secondary to anxiety. Is no evidence of ACS, PE, dissection to name a few. He has tried to do cocaine here in the ER. EKG Diagnostic Results Rate: normal Rhythm: NSR ST Segments: no acute changes Rhythm Strip Diag. Results EP Interpretation: yes Rate: 100 Rhythm: NSR, no PVC's, no ectopy Last Vital Signs Date Time Temp Pulse Resp B/P (MAP) Pulse Ox O2 Delivery O2 Flow Rate FiO2 07/06/20 23:41 98.8 102 20 94/61 (72) 98 Room Air Status: improved Disposition: HOME, SELF-CARE Condition: Stable Scripts Chlordiazepoxide (Chlordiazepoxide HCl) 25 Mg Capsule 25 MG ORAL THREE TIMES A DAY, #15 CAP 0 Refills Prov: Jose Ellis MD 07/07/20 Patient Instructions: Nonspecific Chest Pain Additional Instructions: Using drugs. Stop using alcohol. Go to rehab. Follow-up with your doctor in 7 days. Return if worse. Jose Ellis MD Jul 06, 2020 23:49
[2020-07-06 23:59] LABS: BASOPHILS % (AUTO) 1.6 % (0.0-2.0); HEMATOCRIT 44.2 % (42.0-52.0); HEMOGLOBIN 14.9 G/DL (14.2-18.0); LYMPHOCYTES % (AUTO) 37.3 % (20.0-45.0); MEAN CORPUSCULAR VOLUME 86 FL (80-99); NEUTROPHILS % (AUTO) 49.2 % (45.0-75.0); PLATELET COUNT 236 K/UL (150-450); RED BLOOD COUNT 5.15 M/UL (4.70-6.10); RED CELL DISTRIBUTION WIDTH 14.5 % (11.6-14.8); WHITE BLOOD COUNT 5.7 K/UL (4.8-10.8)
[2020-07-07] MEDS ORDERED: chlordiazePOXIDE 25mg Cap ORAL ONE
--- NOTE | 2020-07-07 | NUR ---
ED Nurse Note: blood collected and sent to lab
[2020-07-07 00:04] LABS: ANION GAP 9 mmol/L (5-15); BLOOD UREA NITROGEN 5 mg/dL (7-18); CALCIUM 8.2 MG/DL (8.5-10.1); CARBON DIOXIDE 30 MMOL/L (21-32); CHLORIDE 103 MMOL/L (98-107); CREATININE 1.1 MG/DL (0.55-1.30); POTASSIUM 2.9 MMOL/L (3.5-5.1); SODIUM 142 MMOL/L (136-145)
--- NOTE | 2020-07-07 00:15 | NUR ---
ED Nurse Note: Observed pt aligning white powder on a phone with a dollar bill rolled up against his nostril. removed belonging from patient premise and notified ermd.
[2020-07-07] MEDS ORDERED: LIBRIUM25 MG ORAL (00:21)
[2020-07-07 00:29] VITALS: BP 122/60
[2020-07-07 00:30] VITALS: BP 122/60
--- NOTE | 2020-07-07 00:30 | NUR ---
ER DISCHARGE NOTE: Patient is cleared to be discharged per ERMD, pt is aox4, on room air, with stable vital signs. pt was given dc and prescription instructions, pt was able to verbalize understanding, pt id band and iv site removed without complications. pt is able to ambulate with steady gait. pt took all belongings.
[2020-07-07] MEDS ORDERED: ATENOLOL50 MG ORAL (06:30)
== END 2020-07-07 00:30 | disposition home or self-care (01) ==
LOC: EDBD 23:40 → EDUNIT# 23:40 → EMR 23:59
DX: R07.9 Chest pain, unspecified (principal); F41.9 Anxiety disorder, unspecified; F15.10 Other stimulant abuse, uncomplicated; I10 Essential (primary) hypertension; G40.909 Epilepsy, unspecified, not intractable, without status epilepticus; Z86.19 Personal history of other infectious and parasitic diseases; Z72.89 Other problems related to lifestyle
CPT/HCPCS: 36415; 80048; 84484; 85025; 96360; Z7502; 99284

== ENCOUNTER 2020-07-07 06:12 | Emergency (ER) | payer MEDICAID ==
[~2020-07-07] VITALS: Ht 167.6 cm; Wt 74.8 kg
--- NOTE | 2020-07-07 06:27 | NUR ---
ED Nurse Note: Patient walked in d/t request for medication refill for atenolol d/t alcohol withdrawals. Patient aao x 4 and ambulatory with steady gait. Patient stable during assessment, no acute distress noted. ERMD at bedside.
[2020-07-07 06:28] VITALS: BP 105/72
[2020-07-07] MEDS ORDERED: ATENOLOL50 MG ORAL (06:30)
[2020-07-07 06:35] VITALS: BP 110/82
--- NOTE | 2020-07-07 06:35 | NUR ---
ER DISCHARGE NOTE: Patient is cleared to be discharged per ERMD, pt is aox4, on room air, with stable vital signs. pt was given dc and prescription instructions, pt was able to verbalize understanding, pt id band removed. pt is able to ambulate with steady gait. pt took all belongings.
--- NOTE | 2020-07-07 06:40 | Emergency Room Report ---
History of Present Illness General Chief Complaint: General Complaint Source: Patient Present Illness HPI Patient is a 49-year-old male presents for medication refill. Patient had reportedly recently run out of his atenolol. Prior history of hypertension. He states that he has been using methamphetamine earlier in the day. Denies any other complaints at this time.Patient requested atenolol. 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 Patient History Past Medical History: see triage record Reviewed Nursing Documentation: PMH: Agreed; PSxH: Agreed Nursing Documentation-PMH Past Medical History: No History, Except For Hx Cardiac Problems: Yes - hep c Hx Hypertension: Yes Hx Cancer: No Hx Gastrointestinal Problems: No Hx Seizures: Yes Review of Systems All Other Systems: negative except mentioned in HPI Physical Exam Vital Signs Date Time Temp Pulse Resp B/P (MAP) Pulse Ox O2 Delivery O2 Flow Rate FiO2 07/07/20 06:17 98.1 101 18 108/75 (86) 95 Room Air General Appearance: well appearing, no apparent distress, alert, GCS 15 Head: normocephalic, atraumatic ENT: hearing grossly normal, normal voice Neck: full range of motion, supple Respiratory: lungs clear, no respiratory distress, speaking full sentences Cardiovascular #1: normal inspection Gastrointestinal: normal inspection Musculoskeletal: normal inspection, gait/station normal, no calf tenderness Neurologic: alert, motor strength/tone normal, business liaison 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 Patient does not have any acute complaints. Patient does not appear to have any evidence of hypertension at this time. He was advised to follow-up with his primary care physician for further refills. He was given prescription for atenolol.At the time of discharge patient was ambulatory without assistance with a nonfocal neurologic exam. The patient is advised to follow up with primary care doctor . Patient is advised to return if any worsening condition or if any changes in status that are concerning. This report is dictated with [employer] videotape editor software which may occasionally lead to discrepancies related to use of this software. Last Vital Signs Date Time Temp Pulse Resp B/P (MAP) Pulse Ox O2 Delivery O2 Flow Rate FiO2 07/07/20 06:28 102 18 Room Air 07/07/20 06:28 98.1 105/72 97 Status: improved Disposition: HOME, SELF-CARE Condition: Stable Scripts Atenolol* (TENORMIN*) 50 Mg Tablet 50 MG ORAL DAILY, #30 TAB Prov: Geovanny Macario MD 07/07/20 Patient Instructions: Medicine Refill at the Emergency Department Geovanny Macario MD Jul 07, 2020 06:40
== END 2020-07-07 06:40 | disposition home or self-care (01) ==
LOC: EMR 06:40
DX: F15.90 Other stimulant use, unspecified, uncomplicated (principal); Z76.0 Encounter for issue of repeat prescription; I10 Essential (primary) hypertension; G40.909 Epilepsy, unspecified, not intractable, without status epilepticus; Z86.19 Personal history of other infectious and parasitic diseases; Z79.899 Other long term (current) drug therapy
CPT/HCPCS: 99282

== ENCOUNTER 2020-09-15 17:09 | Inpatient (IN) | payer MEDICAID ==
[~2020-09-15] VITALS: Ht 165.1 cm; Wt 72.6 kg
[~2020-09-15 17:09] MED LIST changes: +ATENOLOL50 MG ORAL; +BUPROPION XL300 MG ORAL; +BUSPIRONE HCL15 MG ORAL; +LISINOPRIL10 MG ORAL; +LISINOPRIL20 MG ORAL
[2020-09-15] MEDS ORDERED: Omnipaque-300 100ml vial INJ PRN (17:15)
[2020-09-15] MEDS ORDERED: Magnesium Citrate Liq Btl ORAL ONE (17:15)
--- NOTE | 2020-09-15 17:18 | Emergency Room Report ---
History of Present Illness General Chief Complaint: Abdominal Pain Source: Patient, Medical Record Present Illness HPI 50-year-old male history of hypertension presents with generalized abdominal pain x5 days, with nausea vomiting, constipation, patient is still passing gas, pain is moderate, constant described as achy no aggravating alleviating factors. 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: Yes COVID-19 Screening: Negative COVID-19 COVID-19 Testing Source: 2 weeks ago Patient History Past Medical History: see triage record Reviewed Nursing Documentation: PMH: Agreed; PSxH: Agreed Nursing Documentation-PMH Past Medical History: No History, Except For Hx Cardiac Problems: Yes - hep c Hx Hypertension: Yes Hx Cancer: No Hx Gastrointestinal Problems: No Hx Seizures: Yes Review of Systems All Other Systems: negative except mentioned in HPI Physical Exam Vital Signs Date Time Temp Pulse Resp B/P (MAP) Pulse Ox O2 Delivery O2 Flow Rate FiO2 09/15/20 17:05 98.2 139 20 128/86 (100) 97 Room Air Sp02 EP Interpretation: reviewed, normal General Appearance: well appearing, no apparent distress, alert Head: normocephalic, atraumatic Eyes: bilateral eye PERRL, bilateral eye EOMI ENT: uvula midline, moist mucus membranes Neck: supple, thyroid normal, supple/symm/no masses Respiratory: lungs clear, no respiratory distress, no retraction, no accessory muscle use Cardiovascular #1: normal peripheral pulses, regular rate, rhythm, no edema, no gallop, no murmur Gastrointestinal: soft, no guarding, no rebound, tenderness - Diffusely Musculoskeletal: normal inspection Neurologic: alert, oriented x3 Psychiatric: mood/affect normal Skin: no rash, warm/dry Medical Decision Making Diagnostic Impression: Primary Impression: Colitis ER Course 50-year-old male presents with acute nausea vomiting, abdominal pain differenti al includes appendicitis diverticulitis, colitis CT scan shows distal esophageal thickening, possible mass, patient is tolerating his orals Patient will be started on ceftriaxone, Flagyl Patient admitted to Dr. Pham Laboratory Tests Test 09/15/20 17:20 White Blood Count 5.4 K/UL (4.8-10.8) Red Blood Count 5.48 M/UL (4.70-6.10) Hemoglobin 16.3 G/DL (14.2-18.0) Hematocrit 49.4 % (42.0-52.0) Mean Corpuscular Volume 90 FL (80-99) Mean Corpuscular Hemoglobin 29.8 PG (27.0-31.0) Mean Corpuscular Hemoglobin Concent 33.1 G/DL (32.0-36.0) Red Cell Distribution Width 14.9 % (11.6-14.8) H Platelet Count 224 K/UL (150-450) Mean Platelet Volume 7.9 FL (6.5-10.1) Neutrophils (%) (Auto) 60.8 % (45.0-75.0) Lymphocytes (%) (Auto) 29.8 % (20.0-45.0) Monocytes (%) (Auto) 7.1 % (1.0-10.0) Eosinophils (%) (Auto) 1.0 % (0.0-3.0) Basophils (%) (Auto) 1.3 % (0.0-2.0) Urine Color Pale yellow Urine Appearance Clear Urine pH 8 (4.5-8.0) Urine Specific [place] 1.010 (1.005-1.035) Urine Protein Negative (NEGATIVE) Urine Glucose (UA) Negative (NEGATIVE) Urine Ketones Negative (NEGATIVE) Urine Blood Negative (NEGATIVE) Urine Nitrite Negative (NEGATIVE) Urine Bilirubin Negative (NEGATIVE) Urine Urobilinogen Normal MG/DL (0.0-1.0) Urine Leukocyte Esterase Negative (NEGATIVE) Sodium Level 139 MMOL/L (136-145) Potassium Level 3.6 MMOL/L (3.5-5.1) Chloride Level 103 MMOL/L (98-107) Carbon Dioxide Level 29 MMOL/L (21-32) Anion Gap 7 mmol/L (5-15) Blood Urea Nitrogen 4 mg/dL (7-18) L Creatinine 1.2 MG/DL (0.55-1.30) Estimated Glomerular Filtration Rate > 60 mL/min (>60) Glucose Level 109 MG/DL (74-106) H Calcium Level 8.7 MG/DL (8.5-10.1) Total Bilirubin 0.6 MG/DL (0.2-1.0) Aspartate Amino Transferase (AST) 75 U/L (15-37) H Alanine Aminotransferase (ALT) 67 U/L (12-78) Alkaline Phosphatase 162 U/L (46-116) H Troponin I 0.000 ng/mL (0.000-0.056) Total Protein 7.4 G/DL (6.4-8.2) Albumin 2.8 G/DL (3.4-5.0) L Globulin 4.6 g/dL Albumin/Globulin Ratio 0.6 (1.0-2.7) L Lipase 357 U/L (73-393) Microbiology Date/Time Source Procedure Growth Status 09/15/20 19:25 Nasopharynx SARS-CoV-2 RdRp Gene Assay - Final Complete EKG Diagnostic Results Troponin ordered: Yes When was troponin ordered?: Sep 15, 2020 - 1710 EKG Time: 17:40 EP Interpretation: SR, rate 74, QTc 466, no acute escalations, normal axis CT/MRI/US Diagnostic Results CT/MRI/US Diagnostic Results : Impression Procedure: CT Abdomen Pelvis w/Contrast EXAM: CT Abdomen and Pelvis With Intravenous Contrast CLINICAL HISTORY: ABD PAIN TECHNIQUE: Axial computed tomography images of the abdomen and pelvis with intravenous contrast. CTDI is 5.1 mGy and DLP is 254.6 mGy-cm. One or more of the following dose reduction techniques were used: automated exposure control, adjustment of the mA and/or kV according to patient size, use of iterative reconstruction technique. COMPARISON: No relevant prior studies available. FINDINGS: Lung bases: Unremarkable. Mediastinum: Thickening of the distal esophagus, could be from esophagitis or infiltrative lesion. ABDOMEN: Liver: Fatty liver. 7 mm enhancing lesion in the right lobe. Gallbladder and bile ducts: No calcified stones. No ductal dilation. Pancreas: Unremarkable. Spleen: Unremarkable. Adrenals: Unremarkable. Kidneys and ureters: Small low-attenuation foci in the kidneys. No hydronephrosis. Stomach and bowel: Possibly mild colonic thickening. PELVIS: Appendix: No findings to suggest acute appendicitis. Bladder: Unremarkable. Reproductive: Unremarkable. ABDOMEN and PELVIS: Intraperitoneal space: Unremarkable. Bones/joints: No acute fracture. Soft tissues: Unremarkable. Vasculature: Unremarkable. No abdominal aortic aneurysm. Lymph nodes: No enlarged lymph nodes. IMPRESSION: 1. Thickening of the distal esophagus, could be from esophagitis or infiltrative lesion. Small hiatal hernia. 2. Possibly mild colonic thickening. Correlate with GI symptoms. Dictated By: Pastora Pittman MD Electronically Signed By:Pastora Pittman MD Signed Date/Time09/15/201917 CC: Nii Fields MD Last Vital Signs Date Time Temp Pulse Resp B/P (MAP) Pulse Ox O2 Delivery O2 Flow Rate FiO2 09/15/20 17:05 98.2 139 20 128/86 (100) 97 Room Air Disposition: ADMITTED INPATIENT Condition: Stable Nii Fields MD Sep 15, 2020 17:18
[2020-09-15 17:28] VITALS: BP 122/81
[2020-09-15 17:35] LABS: APPEARANCE,URINE CLEAR; BILIRUBIN, URINE NEGATIVE (NEGATIVE); COLOR,URINE PALE YELLOW; GLUCOSE, URINE (UA) NEGATIVE (NEGATIVE); KETONES,URINE NEGATIVE (NEGATIVE); LEUKOCYTE ESTERASE ,URINE NEGATIVE (NEGATIVE); NITRITE,URINE NEGATIVE (NEGATIVE); PH,URINE 8 (4.5-8.0); PROTEIN,URINE NEGATIVE (NEGATIVE); UROBILINOGEN,URINE NORMAL MG/DL (0.0-1.0)
[2020-09-15 17:37] LABS: BASOPHILS % (AUTO) 1.3 % (0.0-2.0); HEMATOCRIT 49.4 % (42.0-52.0); HEMOGLOBIN 16.3 G/DL (14.2-18.0); LYMPHOCYTES % (AUTO) 29.8 % (20.0-45.0); MEAN CORPUSCULAR VOLUME 90 FL (80-99); MONOCYTES % (AUTO) 7.1 % (1.0-10.0); NEUTROPHILS % (AUTO) 60.8 % (45.0-75.0); PLATELET COUNT 224 K/UL (150-450); RED BLOOD COUNT 5.48 M/UL (4.70-6.10); RED CELL DISTRIBUTION WIDTH 14.9 % (11.6-14.8); WHITE BLOOD COUNT 5.4 K/UL (4.8-10.8)
[2020-09-15] MEDS ORDERED: Morphine Sulfate 4mg/ml Inj (IV USE ONLY) IVP ONE ×3 (17:45→19:30)
[2020-09-15 17:58] LABS: ANION GAP 7 mmol/L (5-15); BLOOD UREA NITROGEN 4 mg/dL (7-18); CALCIUM 8.7 MG/DL (8.5-10.1); CARBON DIOXIDE 29 MMOL/L (21-32); CHLORIDE 103 MMOL/L (98-107); CREATININE 1.2 MG/DL (0.55-1.30); POTASSIUM 3.6 MMOL/L (3.5-5.1); SODIUM 139 MMOL/L (136-145)
[2020-09-15 18:02] LABS: ALANINE AMINOTRANSFERASE 67 U/L (12-78); ALBUMIN 2.8 G/DL (3.4-5.0); ALBUMIN/GLOBULIN RATIO 0.6 (1.0-2.7); ALKALINE PHOSPHATASE 162 U/L (46-116); ASPARTATE AMINO TRANSFERASE 75 U/L (15-37); BILIRUBIN,TOTAL 0.6 MG/DL (0.2-1.0)
[2020-09-15 19:10] VITALS: BP 138/89
--- NOTE | 2020-09-15 19:19 | Diagnostic Imaging Report ---
EXAM: CT Abdomen and Pelvis With Intravenous Contrast CLINICAL HISTORY: ABD PAIN TECHNIQUE: Axial computed tomography images of the abdomen and pelvis with intravenous contrast. CTDI is 5.1 mGy and DLP is 254.6 mGy-cm. One or more of the following dose reduction techniques were used: automated exposure control, adjustment of the mA and/or kV according to patient size, use of iterative reconstruction technique. COMPARISON: No relevant prior studies available. FINDINGS: Lung bases: Unremarkable. Mediastinum: Thickening of the distal esophagus, could be from esophagitis or infiltrative lesion. ABDOMEN: Liver: Fatty liver. 7 mm enhancing lesion in the right lobe. Gallbladder and bile ducts: No calcified stones. No ductal dilation. Pancreas: Unremarkable. Spleen: Unremarkable. Adrenals: Unremarkable. Kidneys and ureters: Small low-attenuation foci in the kidneys. No hydronephrosis. Stomach and bowel: Possibly mild colonic thickening. PELVIS: Appendix: No findings to suggest acute appendicitis. Bladder: Unremarkable. Reproductive: Unremarkable. ABDOMEN and PELVIS: Intraperitoneal space: Unremarkable. Bones/joints: No acute fracture. Soft tissues: Unremarkable. Vasculature: Unremarkable. No abdominal aortic aneurysm. Lymph nodes: No enlarged lymph nodes. IMPRESSION: 1. Thickening of the distal esophagus, could be from esophagitis or infiltrative lesion. Small hiatal hernia. 2. Possibly mild colonic thickening. Correlate with GI symptoms.
[2020-09-15] MEDS ORDERED: DiphenhydrAMINE 50mg/ml Inj IVP ONE (19:30)
[2020-09-15] MEDS ORDERED: Metoclopramide 10mg/2ml Inj IVP ONE (19:30)
[2020-09-15] MEDS ORDERED: ATENOLOL50 MG ORAL (19:33)
[2020-09-15] MEDS ORDERED: cefTRIAXone 1 GM in NS 55 ML IVPB ONE (21:45)
[2020-09-15] MEDS ORDERED: metroNIDAZOLE 500mg tab ORAL ONE (21:45)
[2020-09-15 21:56] VITALS: BP 135/82
[2020-09-15] MEDS ORDERED: ZYPREXA10 MG ORAL (22:48)
[2020-09-15] MEDS ORDERED: BUPROPION XL300 MG ORAL (22:48)
[2020-09-15] MEDS ORDERED: Acetaminophen 650 MG SUPP RECTAL PRN (23:30)
[2020-09-16] VITALS (10 sets, daily range): BP systolic 126–162; BP diastolic 82–113
[2020-09-16] MEDS: Morphine Sulfate 2mg/ml Inj(IV/IM USE ONLY) IVP PRN ×5 (00:03→21:21)
[2020-09-16] MEDS: D5 1/2NS w/KCl 20mEq 1,000 ML IV SCH ×3 (00:03→21:20)
[2020-09-16] MEDS ORDERED: Varibar Honey 250ml MC PRN (07:00)
[2020-09-16] MEDS ORDERED: Varibar Pudding 230ml MC PRN (07:00)
[2020-09-16] MEDS ORDERED: Varibar Nectar 240ml MC PRN (07:00)
[2020-09-16] MEDS ORDERED: Varibar Thin Liquid powder 148gm MC PRN (07:00)
[2020-09-16 07:10] LABS: BASOPHILS % (AUTO) 1.2 % (0.0-2.0); EOSINOPHILS % (AUTO) 2.5 % (0.0-3.0); HEMATOCRIT 42.7 % (42.0-52.0); HEMOGLOBIN 13.8 G/DL (14.2-18.0); MEAN CORPUSCULAR VOLUME 91 FL (80-99); MONOCYTES % (AUTO) 8.3 % (1.0-10.0); PLATELET COUNT 169 K/UL (150-450); RED CELL DISTRIBUTION WIDTH 14.5 % (11.6-14.8); WHITE BLOOD COUNT 3.8 K/UL (4.8-10.8)
[2020-09-16 07:34] LABS: ALANINE AMINOTRANSFERASE 54 U/L (12-78); ALBUMIN 2.1 G/DL (3.4-5.0); ALBUMIN/GLOBULIN RATIO 0.5 (1.0-2.7); ALKALINE PHOSPHATASE 118 U/L (46-116); ANION GAP 6 mmol/L (5-15); ASPARTATE AMINO TRANSFERASE 60 U/L (15-37); BILIRUBIN,TOTAL 0.3 MG/DL (0.2-1.0); BLOOD UREA NITROGEN 2 mg/dL (7-18); CALCIUM 7.7 MG/DL (8.5-10.1); CARBON DIOXIDE 28 MMOL/L (21-32); CHLORIDE 104 MMOL/L (98-107); CHOLESTEROL 148 MG/DL (< 200); CREATININE 1.1 MG/DL (0.55-1.30); HDL CHOLESTEROL 39 MG/DL (40-60); POTASSIUM 3.5 MMOL/L (3.5-5.1); SODIUM 138 MMOL/L (136-145); TRIGLYCERIDES 95 MG/DL (30-150)
[2020-09-16 07:38] LABS: INR 1.1 (0.9-1.1)
[2020-09-16] MEDS ORDERED: Lidocaine 1% MPF 10mg/ml 5ml ONE (09:00)
[2020-09-16] MEDS ORDERED: Midazolam 2mg/2ml Inj ONE ×2 (09:00→15:03)
[2020-09-16] MEDS: Heparin 5000 units/ml inj SUBQ SCH ×2 (09:00→21:00)
--- NOTE | 2020-09-16 09:13 | Consultation ---
History of Present Illness General Chief Complaint: Abdominal Pain Present Illness Allergies: Coded Allergies: No Known Allergies (Unverified , 07/06/20) Medication History Scheduled Amlodipine Besylate* (Amlodipine Besylate*), 2.5 MG ORAL DAILY, (Reported) Atenolol* (Tenormin*), 100 MG ORAL DAILY, (Reported) Atenolol* (Tenormin*), 50 MG ORAL DAILY Atenolol* (Tenormin*), 50 MG ORAL BID, (Reported) Atenolol* (Tenormin*), 50 MG ORAL BID, (Reported) Bupropion Hcl* (Wellbutrin*), 300 MG ORAL DAILY, (Reported) Bupropion Hcl* (Wellbutrin*), 150 MG ORAL DAILY, (Reported) Buspirone Hcl* (Buspirone Hcl*), 15 MG ORAL TWICE A DAY, (Reported) Chlordiazepoxide (Chlordiazepoxide HCl), 25 MG ORAL THREE TIMES A DAY Lisinopril* (Lisinopril*), 10 MG ORAL DAILY, (Reported) Olanzapine* (Zyprexa*), 20 MG ORAL HS, (Reported) Patient History Healthcare decision maker N Resuscitation status Advanced Directive on File Physical Exam Last 24 Hour Vital Signs Date Time Temp Pulse Resp B/P (MAP) Pulse Ox O2 Delivery O2 Flow Rate FiO2 09/16/20 04:30 97.6 76 20 126/82 (97) 97 09/15/20 22:10 98.0 70 20 137/75 98 Room Air 09/15/20 21:56 98.3 75 20 135/82 98 Room Air 09/15/20 20:03 98.1 09/15/20 19:10 98.3 78 20 138/89 98 Room Air 09/15/20 17:28 98.1 84 20 122/81 98 Room Air 09/15/20 17:28 125 20 Room Air 09/15/20 17:05 98.2 139 20 128/86 (100) 97 Room Air Intake and Output 09/15/20 09/16/20 19:00 07:00 Intake Total 1000 ml 600 ml Output Total 250 ml Balance 1000 ml 350 ml Intake IV Total 1000 ml 600 ml Output Urine Total 250 ml # Voids 1 1 Laboratory Tests Test 09/15/20 17:20 09/16/20 06:30 White Blood Count 5.4 K/UL (4.8-10.8) 3.8 K/UL (4.8-10.8) L Red Blood Count 5.48 M/UL (4.70-6.10) 4.70 M/UL (4.70-6.10) Hemoglobin 16.3 G/DL (14.2-18.0) 13.8 G/DL (14.2-18.0) L Hematocrit 49.4 % (42.0-52.0) 42.7 % (42.0-52.0) Mean Corpuscular Volume 90 FL (80-99) 91 FL (80-99) Mean Corpuscular Hemoglobin 29.8 PG (27.0-31.0) 29.4 PG (27.0-31.0) Mean Corpuscular Hemoglobin Concent 33.1 G/DL (32.0-36.0) 32.4 G/DL (32.0-36.0) Red Cell Distribution Width 14.9 % (11.6-14.8) H 14.5 % (11.6-14.8) Platelet Count 224 K/UL (150-450) 169 K/UL (150-450) Mean Platelet Volume 7.9 FL (6.5-10.1) 7.7 FL (6.5-10.1) Neutrophils (%) (Auto) 60.8 % (45.0-75.0) 43.0 % (45.0-75.0) L Lymphocytes (%) (Auto) 29.8 % (20.0-45.0) 45.0 % (20.0-45.0) Monocytes (%) (Auto) 7.1 % (1.0-10.0) 8.3 % (1.0-10.0) Eosinophils (%) (Auto) 1.0 % (0.0-3.0) 2.5 % (0.0-3.0) Basophils (%) (Auto) 1.3 % (0.0-2.0) 1.2 % (0.0-2.0) Urine Color Pale yellow Urine Appearance Clear Urine pH 8 (4.5-8.0) Urine Specific [place] 1.010 (1.005-1.035) Urine Protein Negative (NEGATIVE) Urine Glucose (UA) Negative (NEGATIVE) Urine Ketones Negative (NEGATIVE) Urine Blood Negative (NEGATIVE) Urine Nitrite Negative (NEGATIVE) Urine Bilirubin Negative (NEGATIVE) Urine Urobilinogen Normal MG/DL (0.0-1.0) Urine Leukocyte Esterase Negative (NEGATIVE) Sodium Level 139 MMOL/L (136-145) 138 MMOL/L (136-145) Potassium Level 3.6 MMOL/L (3.5-5.1) 3.5 MMOL/L (3.5-5.1) Chloride Level 103 MMOL/L (98-107) 104 MMOL/L (98-107) Carbon Dioxide Level 29 MMOL/L (21-32) 28 MMOL/L (21-32) Anion Gap 7 mmol/L (5-15) 6 mmol/L (5-15) Blood Urea Nitrogen 4 mg/dL (7-18) L 2 mg/dL (7-18) L Creatinine 1.2 MG/DL (0.55-1.30) 1.1 MG/DL (0.55-1.30) Estimat Glomerular Filtration Rate > 60 mL/min (>60) > 60 mL/min (>60) Glucose Level 109 MG/DL (74-106) H 96 MG/DL (74-106) Calcium Level 8.7 MG/DL (8.5-10.1) 7.7 MG/DL (8.5-10.1) L Total Bilirubin 0.6 MG/DL (0.2-1.0) 0.3 MG/DL (0.2-1.0) Aspartate Amino Transf (AST/SGOT) 75 U/L (15-37) H 60 U/L (15-37) H Alanine Aminotransferase (ALT/SGPT) 67 U/L (12-78) 54 U/L (12-78) Alkaline Phosphatase 162 U/L (46-116) H 118 U/L (46-116) H Troponin I 0.000 ng/mL (0.000-0.056) Total Protein 7.4 G/DL (6.4-8.2) 6.1 G/DL (6.4-8.2) L Albumin 2.8 G/DL (3.4-5.0) L 2.1 G/DL (3.4-5.0) L Globulin 4.6 g/dL 4.0 g/dL Albumin/Globulin Ratio 0.6 (1.0-2.7) L 0.5 (1.0-2.7) L Lipase 357 U/L (73-393) Prothrombin Time 12.2 SEC (9.30-11.50) H Prothromb Time International Ratio 1.1 (0.9-1.1) Activated Partial Thromboplast Time 27 SEC (23-33) Pro-B-Type Natriuretic Peptide 296 pg/mL (0-125) H Triglycerides Level 95 MG/DL (30-150) Cholesterol Level 148 MG/DL (< 200) LDL Cholesterol 91 mg/dL (<100) HDL Cholesterol 39 MG/DL (40-60) L Cholesterol/HDL Ratio 3.8 (3.3-4.4) Thyroid Stimulating Hormone (TSH) 5.166 uiU/mL (0.358-3.740) Microbiology Date/Time Source Procedure Growth Status 09/15/20 22:00 Rectum Received 09/15/20 19:25 Nasopharynx SARS-CoV-2 RdRp Gene Assay - Final Complete Height (Feet): 5 Height (Inches): 6.00 Weight (Pounds): 160 Medications Current Medications Medications (Trade) Dose Ordered Sig/Pascual Route PRN Reason Start Time Stop Time Status Last Admin Dose Admin Acetaminophen (Tylenol) 650 mg Q4H PRN RECTAL Temp >100.5 09/15/20 23:30 10/15/20 23:29 Atenolol (Tenormin) 50 mg BID ORAL 09/16/20 09:00 10/16/20 08:59 Barium Sulfate (Varibar Honey) 250 ml NOW PRN RAD 09/16/20 07:00 09/19/20 06:57 Barium Sulfate (Varibar [place]) 240 ml NOW PRN MC RAD 09/16/20 07:00 09/19/20 06:57 Barium Sulfate (Varibar Pudding) 230 ml NOW PRN RAD 09/16/20 07:00 09/19/20 06:57 Barium Sulfate (Varibar Thin Liquid powder) 148 gm NOW PRN RAD 09/16/20 07:00 09/19/20 06:57 Bupropion HCl (Wellbutrin XL) 150 mg DAILY ORAL 09/16/20 09:00 10/16/20 08:59 Dextrose (Dextrose 50%) 25 ml Q30M PRN IV Hypoglycemia 09/15/20 23:30 12/14/20 23:29 Dextrose (Dextrose 50%) 50 ml Q30M PRN IV Hypoglycemia 09/15/20 23:30 12/14/20 23:29 Dextrose/ Electrolytes 1,000 ml @ 100 mls/hr Q10H IV 09/16/20 00:30 10/16/20 00:29 09/16/20 00:03 Heparin Sodium (Porcine) (Heparin 5000 units/ml) 5,000 units EVERY 12 HOURS SUBQ 09/16/20 09:00 10/31/20 08:59 Iohexol (OMNIPAQUE-300 100ml) 100 ml NOW PRN INJ Radiology Procedure 09/15/20 17:15 09/17/20 17:14 Lisinopril (PriniviL) 10 mg DAILY ORAL 09/16/20 09:00 10/16/20 08:59 Morphine Sulfate (Morphine Sulfate) 2 mg EVERY 3 HOURS PRN IVP Moderate Pain (Pain Scale 4-6) 09/15/20 23:30 09/22/20 23:29 09/16/20 04:54 Olanzapine (ZyPREXA) 20 mg BEDTIME ORAL 09/16/20 21:00 10/31/20 20:59 Ondansetron HCl (Zofran) 4 mg Q6H PRN IVP Nausea & Vomiting 09/15/20 23:30 10/15/20 23:29 09/15/20 23:54 Pantoprazole (Protonix) 40 mg DAILY IV 09/16/20 09:00 10/16/20 08:59 Assessment/Plan Assessment/Plan: Oncology Consultation DANIEL LEAVITT: Janet Pham [facility]: r/o malignancy DOS 09/16/2020 ID 50-year-old male history of hypertension presents with generalized abdominal pain x5 days, with nausea vomiting, constipation, patient is still passing gas, pain is moderate, constant described as achy no aggravating alleviating factors. 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 COVID-19 Screening: Negative COVID-19 COVID-19 Testing Source: 2 weeks ago Patient History Past Medical History: see triage record Reviewed Nursing Documentation: PMH: Agreed; PSxH: Agreed Nursing Documentation-PMH Past Medical History: No History, Except For Hx Cardiac Problems: Yes - hep c Hx Hypertension: Yes Hx Cancer: No Hx Gastrointestinal Problems: No Hx Seizures: Yes Review of Systems All Other Systems: negative except mentioned in HPI Physical Exam General: well appearing, no apparent distress, alert Heent uvula midline, moist mucus membranes, supple neck Respiratory: lungs clear, no respiratory distress Cardiovascular: normal peripheral pulses, regular rate Gastrointestinal: soft, no guarding, no rebound, ttp Musculoskeletal: normal inspection Neurologic: alert, oriented x3 Psychiatric: mood/affect normal Skin: no rash, warm/dry Labs: noted Imaging: reviewed Assessment and Recs # Esophageal distal thickening, r/o malignancy v other process --> imaging has been reviewed --> further eval with gi --> likely at some point will need endoscopy # Colitis --> ABX started on ceftriaxone, Flagyl # Fatty liver. 7 mm enhancing lesion in the right lobe. --> imaging us noted # Abd pain --> likely due to above # Nausea and vomiting --> zofran prn --> remains on ivfs # Dvt ppx ambulation --> heparin sq Appreciate consultation and dw Chacho Bonner MD Sep 16, 2020 09:13
[2020-09-16] MEDS: BuPROPion XL 150mg tab ORAL SCH (09:24)
[2020-09-16] MEDS: Pantoprazole Inj IV SCH (09:24)
[2020-09-16] MEDS: Lisinopril 20mg tab ORAL SCH (09:24)
[2020-09-16] MEDS ORDERED: LORazepam 1mg tab ORAL SCH (09:30)
--- NOTE | 2020-09-16 09:44 | History and Physical Report ---
DATE OF ADMISSION: 09/15/2020 DATE AND TIME SEEN: 09/16/2020 at 8 a.m. CONSULTANTS: 1. Lio Mike MD. 2. Richar Baires MD. 3. Dr. Mead. CHIEF COMPLAINT: Abdominal pain, constipation, nausea, vomiting. BRIEF HISTORY: This is a 50-year-old male who presented to [place] ER last night with increased abdominal pain for about 5 days, slight nausea and vomiting, and constipation. The patient was diagnosed with esophageal thickening, possible mass and admitted to medical floor. Currently, calm, in bed. No complaint. No chest pain. No shortness of breath. No nausea, vomiting, or diarrhea. PAST MEDICAL HISTORY: Include hypertension, schizophrenia, alcohol intoxication, anxiety, and drug abuse. PAST SURGICAL HISTORY: None. ALLERGIES: Denies. MEDICATIONS: Include olanzapine, bupropion, lisinopril, atenolol, pantoprazole, Zofran, morphine, metronidazole, ceftriaxone. SOCIAL HISTORY: Positive smoke. Occasional alcohol. Positive methamphetamine use three months ago. PHYSICAL EXAMINATION: GENERAL: Calm in bed, oriented x3, in no acute distress. VITAL SIGNS: Temperature 97 degrees, pulse 76, respirations 20, and blood pressure 126/82. CARDIOVASCULAR: No murmur. LUNGS: Distant and clear. ABDOMEN: Bowel sounds positive. Nontender. Nondistended. EXTREMITIES: No cyanosis or edema. NEUROLOGIC: The patient moves all extremities, slightly weak. LABORATORY AND DIAGNOSTIC DATA: Labs at this time show white count 3.8, otherwise CBC is normal. BMP show BUN 2. Calcium 10.7. AST 60, alkaline phosphatase 118. BNP is 296. Albumin 2.1. TSH 5.16. INR . Urinalysis is negative. ASSESSMENT: Abdominal pain, nausea, vomiting, constipation esophageal thickening versus mass, hypertension, schizophrenia, alcohol and drug abuse, malnutrition, and hypothyroid. PLAN: 1. Resume home medications. 2. Blood pressure and pain control. 3. NPO. 4. IV fluids. 5. GI followup. 6. We will add psychiatric evaluation, Dr. Longo and Dr. Berkowitz, endocrine evaluation. 7. We will check CBC and BMP in the morning. Santos Pham D.O. DR: MALA JOB#: [id number] CC:
--- NOTE | 2020-09-16 10:01 | Consultation ---
DATE OF CONSULTATION: 09/16/2020 GASTROENTEROLOGY CONSULTATION CONSULTING PHYSICIAN: Richar Baires MD. REFERRING PHYSICIAN: Santos Pham DO. CHIEF COMPLAINT: Abdominal pain. HISTORY OF PRESENT ILLNESS: This is a 50-year-old male with multiple medical problems including alcohol abuse, cocaine abuse, amphetamine abuse, schizophrenia, who came to the hospital with complaint of abdominal pain and constipation. A CT of the abdomen and pelvis showed evidence of questionable esophagitis versus esophageal mass, otherwise no acute findings. PAST MEDICAL HISTORY: Significant for, 1. History of hypertension. 2. Alcohol intoxication. 3. Amphetamine abuse. 4. Tobacco abuse. 5. Seizure disorder. 6. Schizophrenia. ALLERGIES: No known drug allergies. MEDICATIONS: Please see medication reconciliation list. FAMILY HISTORY: Noncontributory. According to him, both parents . He does not know what kind of cancer they from. SOCIAL HISTORY: As above. PAST SURGICAL HISTORY: None. REVIEW OF SYSTEMS: A 10-point review of systems was performed and pertinent positives in HPI. PHYSICAL EXAMINATION: VITAL SIGNS: Most recent vital signs, temperature is 97.6, pulse 76, respirations 20, blood pressure 126/82. HEENT: Normocephalic and atraumatic. Sclerae are anicteric. NECK: Supple. No evidence of obvious lymphadenopathy. CARDIOVASCULAR: Regular rate and rhythm. Plus S1-S2. LUNGS: Clear to auscultation bilaterally. ABDOMEN: Positive bowel sounds. Soft and nontender. No rebound. No guarding. No peritoneal sign. EXTREMITIES: No cyanosis, no clubbing, no edema. ASSESSMENT AND PLAN: This is a 50-year-old male with abdominal pain, most probably intoxicated. The patient seems to be mildly in withdrawal with shakes asking for some Klonopin or Ativan. The only concern GI heard at this time is severe constipation and questionable esophagitis versus esophageal mass. Plan is to treat constipation aggressively. The patient was informed of need for endoscopy and he agreed. We are going to try to get him scheduled for today. Meanwhile, we will put him on PPI. I want to thank Dr. Santos Pham for this kind referral. Richar Baires M.D. DR: RODRIGO JOB#: [id number] CC:
--- NOTE | 2020-09-16 14:51 | Pre-Procedure Note/Attestation ---
Pre-Procedure Note/Attestation Complete Prior to Procedure Planned Procedure: not applicable Procedure Narrative: egd Indications for Procedure Pre-Operative Diagnosis: ? esophageal mass Attestation I attest that I discussed the nature of the procedure; its benefits; risks and complications; and alternatives (and the risks and benefits of such alternatives), prior to the procedure, with the patient (or the patient's legal development representative). I attest that, if there was a reasonable possibility of needing a blood tra nsfusion, the patient (or the patient's legal development representative) was given the [facility] standardized written summary, pursuant to the Marcelo [place] Blood Safety Act ([place] Health and Safety Code # 1645, as amended). I attest that I re-evaluated the patient just prior to the surgery and that there has been no change in the patient's H&P, except as documented below: Richar Baires MD Sep 16, 2020 14:51
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
[2020-09-16] MEDS ORDERED: NS 500ML IVPB ONE (15:00)
--- NOTE | 2020-09-16 15:07 | Endoscopy Procedure Note ---
Endoscopy Procedure Note General Indication for Procedure: abd pain Procedures Performed: EGD Operative Findings/Diagnosis: gastritis Specimen: yes Pt Tolerated Procedure Well: Yes Estimated Blood Loss: none Anesthesia Anesthesiologist: barry Anesthesia: MAC Inserted Devices Implant(s) used?: No GI Core Measures 50 yrs or older w/o bx or poly: Not Applicable 10yrs. F/U recommended: Not Applicable Richar Baires MD Sep 16, 2020 15:07
[2020-09-16] MEDS ORDERED: Hydromorphone 0.5mg/0.5ml inj IVP PRN (15:15)
[2020-09-16] MEDS ORDERED: LORazepam Inj 2mg/ml 1ml IV PRN (15:15)
[2020-09-16] MEDS ORDERED: Atropine Sulfate 0.4mg/ml inj IVP PRN (15:15)
[2020-09-16] MEDS ORDERED: Labetalol 5mg/ml 20ml vial IV PRN (15:15)
[2020-09-16] MEDS ORDERED: Midazolam 2mg/2ml Inj IVP PRN (15:15)
[2020-09-16] MEDS ORDERED: LR 1000ml 1,000 ML IVLG SCH (15:15)
[2020-09-16] MEDS ORDERED: oxyCODONE HCL/Acetaminophen 5/325mg ORAL PRN (15:15)
[2020-09-16] MEDS ORDERED: Meperidine 25mg/1ml Inj (FOR RIGORS ONLY) IV PRN (15:15)
[2020-09-16] MEDS ORDERED: HYDROcodone/Acetamin 7.5/325 tab ORAL PRN (15:15)
[2020-09-16] MEDS ORDERED: DiphenhydrAMINE 50mg/ml Inj IVP PRN (15:15)
[2020-09-16] MEDS ORDERED: fentaNYL 100 mcg/2 mL IV PRN (15:15)
[2020-09-16] MEDS ORDERED: HYDROcodone/Acetamin 5/325 tab ORAL PRN (15:15)
--- NOTE | 2020-09-16 15:19 | Anethesia Preoperative Eval ---
Anesthesia Pre-op PMH/ROS General Date of Evaluation: Sep 16, 2020 Time of Evaluation: 15:08 Anesthesiologist: Andrey ASA Score: ASA 3 Mallampati Score Class I : Soft palate, uvula, fauces, pillars visible Class II: Soft palate, uvula, fauces visible Class III: Soft palate, base of uvula visible Class IV: Only hard plate visible Mallampati Classification: Class II Surgeon: Viry Diagnosis: Abd Pain Surgical Procedure: EGD Anesthesia History: none Social History: current smoker, alcohol use, drug use Family History: no anesthesia problems Allergies: Coded Allergies: No Known Allergies (Unverified , 07/06/20) Medications: see eMAR Patient NPO?: Yes Past Medical History Cardiovascular: Reports: HTN Neurologic/Psychiatric: Reports: other - Schizophrenia, Seizures Anesthesia Pre-op Phys. Exam Physician Exam Last Vital Signs Date Time Temp Pulse Resp B/P (MAP) Pulse Ox O2 Delivery O2 Flow Rate FiO2 09/16/20 11:51 97.0 67 19 131/99 (110) 98 09/16/20 09:00 Room Air Constitutional: NAD Neurologic: CN 2-12 intact Airway Exam Mallampati Score: Class II MO: full ROM: full Teeth: missing, intact Anesthesia Pre-op A/P Labs Hematology Test 09/15/20 17:20 09/16/20 06:30 White Blood Count 5.4 K/UL (4.8-10.8) 3.8 K/UL (4.8-10.8) L Red Blood Count 5.48 M/UL (4.70-6.10) 4.70 M/UL (4.70-6.10) Hemoglobin 16.3 G/DL (14.2-18.0) 13.8 G/DL (14.2-18.0) L Hematocrit 49.4 % (42.0-52.0) 42.7 % (42.0-52.0) Mean Corpuscular Volume 90 FL (80-99) 91 FL (80-99) Mean Corpuscular Hemoglobin 29.8 PG (27.0-31.0) 29.4 PG (27.0-31.0) Mean Corpuscular Hemoglobin Concent 33.1 G/DL (32.0-36.0) 32.4 G/DL (32.0-36.0) Red Cell Distribution Width 14.9 % (11.6-14.8) H 14.5 % (11.6-14.8) Platelet Count 224 K/UL (150-450) 169 K/UL (150-450) Mean Platelet Volume 7.9 FL (6.5-10.1) 7.7 FL (6.5-10.1) Neutrophils (%) (Auto) 60.8 % (45.0-75.0) 43.0 % (45.0-75.0) L Lymphocytes (%) (Auto) 29.8 % (20.0-45.0) 45.0 % (20.0-45.0) Monocytes (%) (Auto) 7.1 % (1.0-10.0) 8.3 % (1.0-10.0) Eosinophils (%) (Auto) 1.0 % (0.0-3.0) 2.5 % (0.0-3.0) Basophils (%) (Auto) 1.3 % (0.0-2.0) 1.2 % (0.0-2.0) Coagulation Test 09/16/20 06:30 Prothrombin Time 12.2 SEC (9.30-11.50) H Prothromb Time International Ratio 1.1 (0.9-1.1) Activated Partial Thromboplast Time 27 SEC (23-33) Chemistry Test 09/15/20 17:20 09/16/20 06:30 Sodium Level 139 MMOL/L (136-145) 138 MMOL/L (136-145) Potassium Level 3.6 MMOL/L (3.5-5.1) 3.5 MMOL/L (3.5-5.1) Chloride Level 103 MMOL/L (98-107) 104 MMOL/L (98-107) Carbon Dioxide Level 29 MMOL/L (21-32) 28 MMOL/L (21-32) Anion Gap 7 mmol/L (5-15) 6 mmol/L (5-15) Blood Urea Nitrogen 4 mg/dL (7-18) L 2 mg/dL (7-18) L Creatinine 1.2 MG/DL (0.55-1.30) 1.1 MG/DL (0.55-1.30) Estimat Glomerular Filtration Rate > 60 mL/min (>60) > 60 mL/min (>60) Glucose Level 109 MG/DL (74-106) H 96 MG/DL (74-106) Calcium Level 8.7 MG/DL (8.5-10.1) 7.7 MG/DL (8.5-10.1) L Total Bilirubin 0.6 MG/DL (0.2-1.0) 0.3 MG/DL (0.2-1.0) Aspartate Amino Transf (AST/SGOT) 75 U/L (15-37) H 60 U/L (15-37) H Alanine Aminotransferase (ALT/SGPT) 67 U/L (12-78) 54 U/L (12-78) Alkaline Phosphatase 162 U/L (46-116) H 118 U/L (46-116) H Troponin I 0.000 ng/mL (0.000-0.056) Total Protein 7.4 G/DL (6.4-8.2) 6.1 G/DL (6.4-8.2) L Albumin 2.8 G/DL (3.4-5.0) L 2.1 G/DL (3.4-5.0) L Globulin 4.6 g/dL 4.0 g/dL Albumin/Globulin Ratio 0.6 (1.0-2.7) L 0.5 (1.0-2.7) L Lipase 357 U/L (73-393) Pro-B-Type Natriuretic Peptide 296 pg/mL (0-125) H Triglycerides Level 95 MG/DL (30-150) Cholesterol Level 148 MG/DL (< 200) LDL Cholesterol 91 mg/dL (<100) HDL Cholesterol 39 MG/DL (40-60) L Cholesterol/HDL Ratio 3.8 (3.3-4.4) Thyroid Stimulating Hormone (TSH) 5.166 uiU/mL (0.358-3.740) Risk Assessment & Plan Assessment: ASA 3 Plan: TIVA Status Change Before Surgery: Casey Jones MD Sep 16, 2020 15:19
--- NOTE | 2020-09-16 15:20 | Immediate Post-Op Evaluation ---
Immediate Post-Op Evalulation Immediate Post-Op Evalulation Procedure: EGD Date of Evaluation: Sep 16, 2020 Time of Evaluation: 15:47 IV Fluids: 300 NS Blood Products: 0 Estimated Blood Loss: 2 Urinary Output: 0 Blood Pressure Systolic: 163 Blood Pressure Diastolic: 113 Pulse Rate: 82 Respiratory Rate: 16 O2 Sat by Pulse Oximetry: 100 Temperature (Fahrenheit): 98.3 Pain Score (1-10): 1 Nausea: No Vomiting: No Complications 0 Patient Status: awake, reacts, patent, none Hydration Status: adequate Casey Balderas MD Sep 16, 2020 15:20
--- NOTE | 2020-09-16 15:21 | 48 Hour Post Anesthesia Eval ---
Post Anesthesia Evaluation Procedure: EGD Date of Evaluation: Sep 16, 2020 Time of Evaluation: 17:56 Blood Pressure Systolic: 154 0: 98 Pulse Rate: 84 Respiratory Rate: 18 Temperature (Fahrenheit): 98.4 O2 Sat by Pulse Oximetry: 99 Airway: patent Nausea: No Vomiting: No Pain Intensity: 2 Hydration Status: adequate Cardiopulmonary Status: Stable Mental Status/LOC: patient returned to baseline Follow-up Care/Observations: 0 Post-Anesthesia Complications: 0 Follow-up care needed: N/A Casey Balderas MD Sep 16, 2020 15:21
--- NOTE | 2020-09-16 16:45 | Procedure Note ---
DATE OF PROCEDURE: 09/16/2020 ENDOSCOPIST: Richar Baires M.D. ANESTHESIOLOGIST: Casey Balderas M.D. PROCEDURE PERFORMED: Upper endoscopy with biopsy. INSTRUMENT USED: Olympus adult flexible endoscope. INDICATIONS FOR PROCEDURE: Nausea, vomiting, abdominal pain. The procedure, risks, benefits, and possible consequences, including hemorrhage, aspiration, perforation and infection, and alternative treatments, were explained to the patient/legal guardian by Dr. Richar Baires and the patient/legal guardian understood and accepted these risks. DESCRIPTION OF PROCEDURE: After informed consent was obtained and the patient was adequately sedated, the Olympus upper endoscope was advanced through the mouth into the second portion of the duodenum and retroflexion maneuver was performed In the stomach. The patient had severe erosive distal esophagitis. Small hiatal hernia. In the stomach, there was diffuse gastritis. Random biopsy from antrum was obtained to rule out H. pylori infection. The patient tolerated the procedure very well without any complication. SUMMARY OF FINDINGS: 1. Severe erosive distal esophagitis. 2. Small hiatal hernia. 3. Gastritis, status post biopsy. RECOMMENDATIONS: 1. Reflux measures, PPI. 2. Follow biopsy results and treat accordingly. I want to thank Dr. Santos Pham for this kind referral. Richar Baires M.D. DR: DANYELLE JOB#: [id number] CC: Santos Pham D.O.
[2020-09-16] MEDS: Docusate 100mg cap ORAL SCH (17:34)
[2020-09-16] MEDS: LORazepam 1mg tab ORAL PRN ×2 (17:34→23:43)
[2020-09-16] MEDS: OLANZapine 10mg tab ORAL SCH (21:20)
[2020-09-17] VITALS: BP 121/83
[2020-09-17] MEDS: Morphine Sulfate 2mg/ml Inj(IV/IM USE ONLY) IVP PRN ×5 (03:30→20:08)
[2020-09-17 04:00] VITALS: BP 131/79
[2020-09-17] MEDS: D5 1/2NS w/KCl 20mEq 1,000 ML IV SCH ×2 (05:59→15:50)
[2020-09-17 08:00] VITALS: BP 117/76
[2020-09-17 08:39] LABS: EOSINOPHILS % (AUTO) 2.5 % (0.0-3.0); HEMOGLOBIN 16.3 G/DL (14.2-18.0); LYMPHOCYTES % (AUTO) 42.4 % (20.0-45.0); MEAN CORPUSCULAR VOLUME 92 FL (80-99); MONOCYTES % (AUTO) 8.1 % (1.0-10.0); NEUTROPHILS % (AUTO) 46.1 % (45.0-75.0); PLATELET COUNT 207 K/UL (150-450); RED BLOOD COUNT 5.42 M/UL (4.70-6.10); RED CELL DISTRIBUTION WIDTH 14.2 % (11.6-14.8); WHITE BLOOD COUNT 5.7 K/UL (4.8-10.8)
[2020-09-17] MEDS: BuPROPion XL 150mg tab ORAL SCH (08:48)
[2020-09-17] MEDS: Heparin 5000 units/ml inj SUBQ SCH ×2 (08:48→20:14)
[2020-09-17] MEDS: Pantoprazole Inj IV SCH (08:49)
[2020-09-17] MEDS: Lisinopril 20mg tab ORAL SCH (08:49)
[2020-09-17] MEDS: Docusate 100mg cap ORAL SCH ×2 (08:49→17:07)
--- NOTE | 2020-09-17 08:51 | General Progress Note ---
Subjective ROS Limited/Unobtainable: Yes Allergies: Coded Allergies: No Known Allergies (Unverified , 07/06/20) Objective Last 24 Hour Vital Signs Date Time Temp Pulse Resp B/P (MAP) Pulse Ox O2 Delivery O2 Flow Rate FiO2 09/17/20 04:00 97.9 74 20 131/79 (96) 97 09/17/20 00:13 78 20 121/83 98 09/17/20 00:00 98.2 78 20 121/83 (96) 98 09/16/20 23:43 73 18 140/85 98 09/16/20 20:21 Room Air 09/16/20 20:00 97.3 72 20 144/93 (110) 96 09/16/20 18:04 73 20 140/85 97 09/16/20 17:34 73 20 141/92 97 09/16/20 17:34 73 141/92 09/16/20 16:15 96.6 20 141/92 (108) 97 09/16/20 16:00 97.6 73 14 149/84 97 Room Air 09/16/20 15:50 84 18 142/96 100 Simple Mask 6 09/16/20 15:40 84 21 137/109 100 Simple Mask 6 09/16/20 15:35 82 23 136/102 100 Simple Mask 6 09/16/20 15:32 84 18 99 09/16/20 15:31 82 16 100 09/16/20 15:29 98.3 86 21 162/113 100 Simple Mask 6 09/16/20 11:51 97.0 67 19 131/99 (110) 98 09/16/20 10:28 61 18 128/87 100 09/16/20 09:58 61 18 128/87 100 09/16/20 09:24 128/87 09/16/20 09:24 61 128/87 09/16/20 09:00 Room Air Intake and Output 09/16/20 09/17/20 19:00 07:00 Intake Total 1450 ml 600 ml Output Total 1100 ml Balance 1450 ml -500 ml Intake Oral 600 ml IV Total 1450 ml Output Urine Total 1100 ml # Voids 4 # Bowel Movements 1 Laboratory Tests 09/16/20 10:15: Urine Opiates Screen PositiveH, Urine Barbiturates Screen PositiveH, Phencyclidine (PCP) Screen Negative, Urine Amphetamines Screen PositiveH, Urine Benzodiazepines Screen PositiveH, Urine Cocaine Screen Negative, Urine Marijuana (THC) Screen Negative 09/17/20 07:30: White Blood Count [Pending], Red Blood Count [Pending], Hemoglobin [Pending], Hematocrit [Pending], Mean Corpuscular Volume [Pending], Mean Corpuscular Hemoglobin [Pending], Mean Corpuscular Hemoglobin Concent [Pending], Red Cell Distribution Width [Pending], Platelet Count [Pending], Mean Platelet Volume [Pending], Neutrophils (%) (Auto) [Pending], Lymphocytes (%) (Auto) [Pending], Monocytes (%) (Auto) [Pending], Eosinophils (%) (Auto) [Pending], Basophils (%) (Auto) [Pending], Sodium Level [Pending], Potassium Level [Pending], Chloride Level [Pending], Carbon Dioxide Level [Pending], Blood Urea Nitrogen [Pending], Creatinine [Pending], Estimat Glomerular Filtration Rate [Pending], Glucose Level [Pending], Calcium Level [Pending], Total Bilirubin [Pending], Aspartate Amino Transf (AST/SGOT) [Pending], Alanine Aminotransferase (ALT/SGPT) [Pend ing], Alkaline Phosphatase [Pending], Total Protein [Pending], Albumin [Pending], Globulin [Pending] Height (Feet): 5 Height (Inches): 5.00 Weight (Pounds): 160 General Appearance: no apparent distress EENT: normal ENT inspection Neck: supple Cardiovascular: normal rate Respiratory/Chest: decreased breath sounds Abdomen: normal bowel sounds, non tender, soft Extremities: non-tender Assessment/Plan Problem List: (1) Esophagitis ICD Codes: K20.90 - Esophagitis, unspecified without bleeding SNOMED: 96837403 (2) Anxiety ICD Codes: F41.9 - Anxiety disorder, unspecified SNOMED: 44981287 (3) Methamphetamine abuse ICD Codes: F15.10 - Other stimulant abuse, uncomplicated SNOMED: 286935025 (4) HTN (hypertension) ICD Codes: I10 - Essential (primary) hypertension SNOMED: 55751413 (5) Seizure ICD Codes: R56.9 - Unspecified convulsions SNOMED: 52348504 (6) Schizophrenia ICD Codes: F20.9 - Schizophrenia, unspecified SNOMED: 45649432 Assessment/Plan: s/p EGD reflux measures PPI carafate fu labs Richar Baires MD Sep 17, 2020 08:51
[2020-09-17] MEDS: LORazepam 1mg tab ORAL PRN ×2 (08:59→18:00)
[2020-09-17] MEDS: Sucralfate 1gm tab ORAL SCH ×4 (09:04→20:07)
[2020-09-17 09:06] LABS: ALANINE AMINOTRANSFERASE 58 U/L (12-78); ALBUMIN 2.3 G/DL (3.4-5.0); ALBUMIN/GLOBULIN RATIO 0.5 (1.0-2.7); ALKALINE PHOSPHATASE 131 U/L (46-116); ANION GAP 7 mmol/L (5-15); ASPARTATE AMINO TRANSFERASE 58 U/L (15-37); BILIRUBIN,TOTAL 0.3 MG/DL (0.2-1.0); BLOOD UREA NITROGEN 2 mg/dL (7-18); CALCIUM 8.3 MG/DL (8.5-10.1); CARBON DIOXIDE 27 MMOL/L (21-32); CHLORIDE 101 MMOL/L (98-107); CREATININE 1.1 MG/DL (0.55-1.30); POTASSIUM 3.4 MMOL/L (3.5-5.1); SODIUM 135 MMOL/L (136-145)
[2020-09-17 12:00] VITALS: BP 121/75
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
[2020-09-17] MEDS ORDERED: Magnesium Citrate Liq Btl ORAL SCH (15:00)
[2020-09-17 16:00] VITALS: BP 127/91
[2020-09-17] MEDS ORDERED: Fleet's Mineral Oil Enema RECTAL SCH (18:00)
--- NOTE | 2020-09-17 18:44 | Consultation ---
DATE OF CONSULTATION: 09/17/2020 ENDOCRINOLOGY CONSULTATION CONSULTING PHYSICIAN: Zechariah Berkowitz MD. REFERRING PHYSICIAN: Santos Pham D.O. REASON FOR CONSULTATION: Elevated TSH. HISTORY OF PRESENT ILLNESS: The patient is a 50-year-old male who presented to [facility] with abdominal pain for 5 days, nausea and vomiting, with a TSH of 5. Endocrinology was consulted. PAST MEDICAL HISTORY: 1. Schizophrenia. 2. Hypertension. 3. Alcohol intoxication. 4. Anxiety. 5. Drug use. PAST SURGICAL HISTORY: None. MEDICATIONS: Reviewed and reconciled. ALLERGIES TO MEDICATIONS: None. SOCIAL HISTORY: Smoking, alcohol, and drug use. PHYSICAL EXAMINATION: VITAL SIGNS: Blood pressure is 117/76, pulse of 78, temperature of 97.3. HEENT: Pupils are equal and reactive to light. Sclerae anicteric. NECK: No JVD. No thyromegaly. No bruit. LUNGS: Clear. HEART: Regular rate and rhythm. ABDOMEN: Positive bowel sounds. EXTREMITIES: No clubbing, cyanosis, or edema. DIAGNOSES: 1. Elevated TSH, doubt hypothyroidism, most likely due to sick euthyroid. 2. Abdominal pain. 3. History of drug abuse. 4. Psychiatric illness. PLAN: 1. I will repeat TSH, free T4, and free T3. 2. No need for thyroxine for now. 3. I will follow the results and further advise. Thank you, Dr. Pham, for the courtesy of this consultation. Zechariah Berkowitz M.D. DR: MARY/BRAYDON JOB#: [id number] CC: VINCENT
[2020-09-17 20:00] VITALS: BP 142/105
[2020-09-17] MEDS: OLANZapine 10mg tab ORAL SCH (20:08)
[2020-09-17] MEDS: LORazepam 0.5mg tab ORAL PRN (21:13)
--- NOTE | 2020-09-17 21:30 | General Progress Note ---
Subjective ROS Limited/Unobtainable: Yes Allergies: Coded Allergies: No Known Allergies (Unverified , 07/06/20) Objective Last 24 Hour Vital Signs Date Time Temp Pulse Resp B/P (MAP) Pulse Ox O2 Delivery O2 Flow Rate FiO2 09/17/20 21:13 88 23 146/102 98 09/17/20 18:30 76 18 128/90 99 09/17/20 18:00 73 18 127/91 97 09/17/20 17:07 73 127/91 09/17/20 16:00 97.7 73 18 127/91 (103) 97 09/17/20 12:00 97.3 76 18 121/75 (90) 96 09/17/20 09:29 76 18 115/79 98 09/17/20 09:00 Room Air 09/17/20 08:59 78 19 117/76 97 09/17/20 08:49 117/76 09/17/20 08:49 78 117/76 09/17/20 08:00 97.3 78 19 117/76 (90) 97 09/17/20 04:00 97.9 74 20 131/79 (96) 97 09/17/20 00:13 78 20 121/83 98 09/17/20 00:00 98.2 78 20 121/83 (96) 98 09/16/20 23:43 73 18 140/85 98 Intake and Output 09/16/20 09/17/20 19:00 07:00 Intake Total 1450 ml 600 ml Output Total 1100 ml Balance 1450 ml -500 ml Intake Oral 600 ml IV Total 1450 ml Output Urine Total 1100 ml # Voids 4 # Bowel Movements 1 Laboratory Tests 09/17/20 07:30: White Blood Count 5.7, Red Blood Count 5.42, Hemoglobin 16.3, Hematocrit 50.0, Mean Corpuscular Volume 92, Mean Corpuscular Hemoglobin 30.1, Mean Corpuscular Hemoglobin Concent 32.7, Red Cell Distribution Width 14.2, Platelet Count 207, Mean Platelet Volume 8.0, Neutrophils (%) (Auto) 46.1, Lymphocytes (%) (Auto) 42.4, Monocytes (%) (Auto) 8.1, Eosinophils (%) (Auto) 2.5, Basophils (%) (Auto) 1.0, Sodium Level 135L, Potassium Level 3.4L, Chloride Level 101, Carbon Dioxide Level 27, Anion Gap 7, Blood Urea Nitrogen 2L, Creatinine 1.1, Estimat Glomerular Filtration Rate > 60, Glucose Level 118H, Calcium Level 8.3L, Total Bilirubin 0.3, Aspartate Amino Transf (AST/SGOT) 58H, Alanine Aminotransferase (ALT/SGPT) 58, Alkaline Phosphatase 131H, Total Protein 6.7, Albumin 2.3L, Globulin 4.4, Albumin/Globulin Ratio 0.5L, Thyroid Stimulating Hormone (TSH) 4.183H, Free Thyroxine 1.20, Free Triiodothyronine 3.2 Height (Feet): 5 Height (Inches): 5.00 Weight (Pounds): 160 Assessment/Plan Problem List: (1) Palpitations ICD Codes: R00.2 - Palpitations SNOMED: 17218466 (2) Alcohol intoxication ICD Codes: F10.929 - Alcohol use, unspecified with intoxication, unspecified SNOMED: 94850990, 30234465 (3) Hypokalemia ICD Codes: E87.6 - Hypokalemia SNOMED: 47144077 (4) Colitis ICD Codes: K52.9 - Noninfective gastroenteritis and colitis, unspecified SNOMED: 02748604 (5) Schizophrenia ICD Codes: F20.9 - Schizophrenia, unspecified SNOMED: 67351967 (6) Seizure ICD Codes: R56.9 - Unspecified convulsions SNOMED: 95874694 (7) Malnutrition ICD Codes: E46 - Unspecified protein-calorie malnutrition SNOMED: 42783854 (8) Alcohol withdrawal ICD Codes: F10.239 - Alcohol dependence with withdrawal, unspecified SNOMED: 010782371 (9) Nausea ICD Codes: R11.0 - Nausea SNOMED: 179613141 (10) Amphetamine abuse ICD Codes: F15.10 - Other stimulant abuse, uncomplicated SNOMED: 03281495 (11) HTN (hypertension) ICD Codes: I10 - Essential (primary) hypertension SNOMED: 94915445 (12) Methamphetamine abuse ICD Codes: F15.10 - Other stimulant abuse, uncomplicated SNOMED: 851579408 (13) Esophagitis ICD Codes: K20.90 - Esophagitis, unspecified without bleeding SNOMED: 42891246 Status: progressing Assessment/Plan: polysubstance abuse htn r/o dt reviewed chart ashlyn hillity afebrile Maria Meyer MD Sep 17, 2020 21:30
--- NOTE | 2020-09-17 23:13 | Psychiatry Consultation ---
Psychiatry Consultation Psychiatry Consultation Chief Complaint: Abdominal Pain History of Present Illness: 50-year-old male with a history of multiple medical issues, who has been admitted to the hospital for medical stabilization. Patient is admitted for hypertension, schizophrenia, alcohol intoxication, anxiety. Patient is more awake and interacting more appropriately. The patient has episodes of confusion, agitation. PAST PSYCHIATRIC HISTORY: Anxiety and depression. PAST MEDICAL HISTORY: As above. ALLERGIES: No known drug allergies. SUBSTANCE ABUSE HISTORY: Significant for benzodiazepine, methamphetamine, barbiturate, and opiates. MENTAL STATUS EXAMINATION: Patient is awake, disoriented. Mood is anxious. Affect is flat. Thought process, there is a paucity of thought content. Thought content, no suicidal or homicidal ideation. Cognition is impaired. Insight and judgment is impaired. ASSESSMENT: Odin I Polysubstance dependence. Acute toxic encephalopathy. Odin II Deferred. Odin III None. Odin IV Moderate. Odin V 20. PLAN: 1. Olanzapine 20 mg. 2. Ativan p.r.n. 3. We will discontinue the Wellbutrin. 4. Patient should be discharged when medically stable. Allergies: Coded Allergies: No Known Allergies (Unverified , 07/06/20) Medication History Scheduled Amlodipine Besylate* (Amlodipine Besylate*), 2.5 MG ORAL DAILY, (Reported) Atenolol* (Tenormin*), 50 MG ORAL BID, (Reported) Bupropion Hcl* (Wellbutrin*), 300 MG ORAL DAILY, (Reported) Buspirone Hcl* (Buspirone Hcl*), 15 MG ORAL TWICE A DAY, (Reported) Chlordiazepoxide (Chlordiazepoxide HCl), 25 MG ORAL THREE TIMES A DAY Lisinopril* (Lisinopril*), 10 MG ORAL DAILY, (Reported) Olanzapine* (Zyprexa*), 20 MG ORAL HS, (Reported) Discontinued Medications Atenolol* (Tenormin*), 100 MG ORAL DAILY, (Reported) Discontinued Reason: Pt had allergic rxn Atenolol* (Tenormin*), 50 MG ORAL DAILY Discontinued Reason: Therapy completed Atenolol* (Tenormin*), 50 MG ORAL BID, (Reported) Discontinued Reason: MD discontinued med Bupropion Hcl* (Wellbutrin*), 150 MG ORAL DAILY, (Reported) Discontinued Reason: Therapy completed Objective Data Height (Feet): 5 Height (Inches): 5.00 Weight (Pounds): 160 Agnes Longo MD Sep 17, 2020 23:13
[2020-09-18] VITALS: BP 105/75
[2020-09-18] MEDS: D5 1/2NS w/KCl 20mEq 1,000 ML IV SCH (02:30)
[2020-09-18 04:00] VITALS: BP 121/90
[2020-09-18] MEDS: LORazepam 0.5mg tab ORAL PRN ×3 (06:34→20:29)
--- NOTE | 2020-09-18 07:02 | Hematology/Onc Progress Note ---
Assessment/Plan Assessment/Plan Assessment and Recs # Esophageal distal thickening, r/o malignancy v other process --> imaging has been reviewed --> further eval with gi, was completed --> likely at some point will need endoscopy-->completed no mass # Colitis --> ABX started on ceftriaxone, Flagyl # Fatty liver. 7 mm enhancing lesion in the right lobe. --> imaging us noted # Abd pain --> likely due to above # Nausea and vomiting --> zofran prn --> remains on ivfs # Dvt ppx ambulation --> heparin sq Appreciate consultation and douglas RN Subjective HEENT: Denies: no symptoms, eye pain, blurred vision, tearing, double vision, ear pain, ear discharge, nose pain, nose congestion, throat pain, throat swelling, mouth pain, mouth swelling, other Cardiovascular: Denies: no symptoms, chest pain, edema, irregular heart rate, lightheadedness, palpitations, syncope, other Respiratory: Denies: no symptoms, cough, shortness of breath, SOB with excertion, SOB at rest, sputum, wheezing, other Genitourinary: Denies: no symptoms, burning, discharge, frequency, flank pain, hematuria, incontinence, pain, urgency, other Neurologic/Psychiatric: Denies: no symptoms, anxiety, depressed, emotional problems, headache, numbness, paresthesia, pre-existing deficit, seizure, tingling, tremors, weakness, other Endocrine: Denies: no symptoms, excessive sweating, flushing, intolerance to cold, intolerance to heat, increased hunger, increased thirst, increased urine, unexplained weight gain, unexplained weight loss, other Hematologic/Lymphatic: Denies: no symptoms, anemia, easy bleeding, easy bruisin g, adenopathy, other Allergies: Coded Allergies: No Known Allergies (Unverified , 07/06/20) Subjective 09/18 labs reviewed, meds noted, no bleeding, egd completed Objective Objective Current Medications Medications (Trade) Dose Ordered Sig/Pascual Route PRN Reason Start Time Stop Time Status Last Admin Dose Admin Acetaminophen (Tylenol) 650 mg Q4H PRN RECTAL Temp >100.5 09/15/20 23:30 10/15/20 23:29 Atenolol (Tenormin) 50 mg BID ORAL 09/16/20 09:00 10/16/20 08:59 09/17/20 17:07 Barium Sulfate (Varibar Honey) 250 ml NOW PRN RAD 09/16/20 07:00 09/19/20 06:57 Barium Sulfate (Varibar [place]) 240 ml NOW PRN RAD 09/16/20 07:00 09/19/20 06:57 Barium Sulfate (Varibar Pudding) 230 ml NOW PRN RAD 09/16/20 07:00 09/19/20 06:57 Barium Sulfate (Varibar Thin Liquid powder) 148 gm NOW PRN RAD 09/16/20 07:00 09/19/20 06:57 Bupropion HCl (Wellbutrin XL) 150 mg DAILY ORAL 09/16/20 09:00 10/16/20 08:59 09/17/20 08:48 Dextrose (Dextrose 50%) 25 ml Q30M PRN IV Hypoglycemia 09/15/20 23:30 12/14/20 23:29 Dextrose (Dextrose 50%) 50 ml Q30M PRN IV Hypoglycemia 09/15/20 23:30 12/14/20 23:29 Dextrose/ Electrolytes 1,000 ml @ 100 mls/hr Q10H IV 09/16/20 00:30 10/16/20 00:29 09/17/20 15:50 Docusate Sodium (Colace) 100 mg TWICE A DAY ORAL 09/16/20 18:00 10/16/20 17:59 09/17/20 17:07 Heparin Sodium (Porcine) (Heparin 5000 units/ml) 5,000 units EVERY 12 HOURS SUBQ 09/16/20 09:00 10/31/20 08:59 09/17/20 20:14 Linaclotide (Linzess) 290 mcg BEFORE BREAKFAST ORAL 09/17/20 06:30 12/16/20 06:29 09/18/20 06:28 Lisinopril (PriniviL) 10 mg DAILY ORAL 09/16/20 09:00 10/16/20 08:59 09/17/20 08:49 Lorazepam (Ativan) 2 mg EVERY 4 HOURS PRN ORAL For Anxiety 09/17/20 21:00 09/24/20 20:59 09/18/20 06:34 Morphine Sulfate (Morphine Sulfate) 2 mg EVERY 3 HOURS PRN IVP Moderate Pain (Pain Scale 4-6) 09/15/20 23:30 09/22/20 23:29 09/17/20 20:08 Olanzapine (ZyPREXA) 20 mg BEDTIME ORAL 09/16/20 21:00 10/31/20 20:59 09/17/20 20:08 Ondansetron HCl (Zofran) 4 mg Q6H PRN IVP Nausea & Vomiting 09/15/20 23:30 10/15/20 23:29 09/15/20 23:54 Pantoprazole (Protonix) 40 mg EVERY 12 HOURS ORAL 09/17/20 21:00 10/17/20 20:59 09/17/20 20:07 Sucralfate (Carafate) 1 gm FOUR TIMES A DAY ORAL 09/17/20 09:00 12/16/20 08:59 09/17/20 20:07 Last 24 Hour Vital Signs Date Time Temp Pulse Resp B/P (MAP) Pulse Ox O2 Delivery O2 Flow Rate FiO2 09/18/20 06:34 91 23 136/88 97 09/18/20 04:00 96.6 84 16 121/90 (100) 97 09/18/20 00:00 96.8 85 16 105/75 (85) 97 09/17/20 21:43 76 18 138/88 97 09/17/20 21:13 88 23 146/102 98 09/17/20 21:00 Room Air 09/17/20 20:38 97.7 09/17/20 20:00 96.6 75 17 142/105 (117) 100 09/17/20 18:30 76 18 128/90 99 09/17/20 18:00 73 18 127/91 97 09/17/20 17:07 73 127/91 09/17/20 16:00 97.7 73 18 127/91 (103) 97 09/17/20 12:00 97.3 76 18 121/75 (90) 96 09/17/20 09:29 76 18 115/79 98 09/17/20 09:00 Room Air 09/17/20 08:59 78 19 117/76 97 09/17/20 08:49 117/76 09/17/20 08:49 78 117/76 09/17/20 08:00 97.3 78 19 117/76 (90) 97 09/17/20 04:00 97.9 74 20 131/79 (96) 97 09/17/20 00:13 78 20 121/83 98 09/17/20 00:00 98.2 78 20 121/83 (96) 98 09/16/20 23:43 73 18 140/85 98 09/16/20 20:21 Room Air 09/16/20 20:00 97.3 72 20 144/93 (110) 96 09/16/20 18:04 73 20 140/85 97 09/16/20 17:34 73 20 141/92 97 09/16/20 17:34 73 141/92 09/16/20 16:15 96.6 20 141/92 (108) 97 09/16/20 16:00 97.6 73 14 149/84 97 Room Air 09/16/20 15:50 84 18 142/96 100 Simple Mask 6 09/16/20 15:40 84 21 137/109 100 Simple Mask 6 09/16/20 15:35 82 23 136/102 100 Simple Mask 6 09/16/20 15:32 84 18 99 09/16/20 15:31 82 16 100 09/16/20 15:29 98.3 86 21 162/113 100 Simple Mask 6 09/16/20 11:51 97.0 67 19 131/99 (110) 98 09/16/20 10:28 61 18 128/87 100 09/16/20 09:58 61 18 128/87 100 09/16/20 09:24 128/87 09/16/20 09:24 61 128/87 09/16/20 09:00 Room Air 09/16/20 08:00 96.8 61 18 128/87 (101) 100 Intake and Output 09/17/20 09/18/20 19:00 07:00 Intake Total 1180 ml 2100 ml Output Total 700 ml Balance 480 ml 2100 ml Intake Oral 1080 ml 2000 ml IV Total 100 ml 100 ml Output Urine Total 700 ml # Voids 5 Labs Test 09/15/20 17:20 09/16/20 06:30 09/16/20 10:15 09/17/20 07:30 White Blood Count 5.4 K/UL (4.8-10.8) 3.8 K/UL (4.8-10.8) 5.7 K/UL (4.8-10.8) Red Blood Count 5.48 M/UL (4.70-6.10) 4.70 M/UL (4.70-6.10) 5.42 M/UL (4.70-6.10) Hemoglobin 16.3 G/DL (14.2-18.0) 13.8 G/DL (14.2-18.0) 16.3 G/DL (14.2-18.0) Hematocrit 49.4 % (42.0-52.0) 42.7 % (42.0-52.0) 50.0 % (42.0-52.0) Mean Corpuscular Volume 90 FL (80-99) 91 FL (80-99) 92 FL (80-99) Mean Corpuscular Hemoglobin 29.8 PG (27.0-31.0) 29.4 PG (27.0-31.0) 30.1 PG (27.0-31.0) Mean Corpuscular Hemoglobin Concent 33.1 G/DL (32.0-36.0) 32.4 G/DL (32.0-36.0) 32.7 G/DL (32.0-36.0) Red Cell Distribution Width 14.9 % (11.6-14.8) 14.5 % (11.6-14.8) 14.2 % (11.6-14.8) Platelet Count 224 K/UL (150-450) 169 K/UL (150-450) 207 K/UL (150-450) Mean Platelet Volume 7.9 FL (6.5-10.1) 7.7 FL (6.5-10.1) 8.0 FL (6.5-10.1) Neutrophils (%) (Auto) 60.8 % (45.0-75.0) 43.0 % (45.0-75.0) 46.1 % (45.0-75.0) Lymphocytes (%) (Auto) 29.8 % (20.0-45.0) 45.0 % (20.0-45.0) 42.4 % (20.0-45.0) Monocytes (%) (Auto) 7.1 % (1.0-10.0) 8.3 % (1.0-10.0) 8.1 % (1.0-10.0) Eosinophils (%) (Auto) 1.0 % (0.0-3.0) 2.5 % (0.0-3.0) 2.5 % (0.0-3.0) Basophils (%) (Auto) 1.3 % (0.0-2.0) 1.2 % (0.0-2.0) 1.0 % (0.0-2.0) Urine Color Pale yellow Urine Appearance Clear Urine pH 8 (4.5-8.0) Urine Specific [place] 1.010 (1.005-1.035) Urine Protein Negative (NEGATIVE) Urine Glucose (UA) Negative (NEGATIVE) Urine Ketones Negative (NEGATIVE) Urine Blood Negative (NEGATIVE) Urine Nitrite Negative (NEGATIVE) Urine Bilirubin Negative (NEGATIVE) Urine Urobilinogen Normal MG/DL (0.0-1.0) Urine Leukocyte Esterase Negative (NEGATIVE) Sodium Level 139 MMOL/L (136-145) 138 MMOL/L (136-145) 135 MMOL/L (136-145) Potassium Level 3.6 MMOL/L (3.5-5.1) 3.5 MMOL/L (3.5-5.1) 3.4 MMOL/L (3.5-5.1) Chloride Level 103 MMOL/L (98-107) 104 MMOL/L (98-107) 101 MMOL/L (98-107) Carbon Dioxide Level 29 MMOL/L (21-32) 28 MMOL/L (21-32) 27 MMOL/L (21-32) Anion Gap 7 mmol/L (5-15) 6 mmol/L (5-15) 7 mmol/L (5-15) Blood Urea Nitrogen 4 mg/dL (7-18) 2 mg/dL (7-18) 2 mg/dL (7-18) Creatinine 1.2 MG/DL (0.55-1.30) 1.1 MG/DL (0.55-1.30) 1.1 MG/DL (0.55-1.30) Estimat Glomerular Filtration Rate > 60 mL/min (>60) > 60 mL/min (>60) > 60 mL/min (>60) Glucose Level 109 MG/DL (74-106) 96 MG/DL (74-106) 118 MG/DL (74-106) Calcium Level 8.7 MG/DL (8.5-10.1) 7.7 MG/DL (8.5-10.1) 8.3 MG/DL (8.5-10.1) Total Bilirubin 0.6 MG/DL (0.2-1.0) 0.3 MG/DL (0.2-1.0) 0.3 MG/DL (0.2-1.0) Aspartate Amino Transf (AST/SGOT) 75 U/L (15-37) 60 U/L (15-37) 58 U/L (15-37) Alanine Aminotransferase (ALT/SGPT) 67 U/L (12-78) 54 U/L (12-78) 58 U/L (12-78) Alkaline Phosphatase 162 U/L (46-116) 118 U/L (46-116) 131 U/L (46-116) Troponin I 0.000 ng/mL (0.000-0.056) Total Protein 7.4 G/DL (6.4-8.2) 6.1 G/DL (6.4-8.2) 6.7 G/DL (6.4-8.2) Albumin 2.8 G/DL (3.4-5.0) 2.1 G/DL (3.4-5.0) 2.3 G/DL (3.4-5.0) Globulin 4.6 g/dL 4.0 g/dL 4.4 g/dL Albumin/Globulin Ratio 0.6 (1.0-2.7) 0.5 (1.0-2.7) 0.5 (1.0-2.7) Lipase 357 U/L (73-393) Prothrombin Time 12.2 SEC (9.30-11.50) Prothromb Time International Ratio 1.1 (0.9-1.1) Activated Partial Thromboplast Time 27 SEC (23-33) Pro-B-Type Natriuretic Peptide 296 pg/mL (0-125) Triglycerides Level 95 MG/DL (30-150) Cholesterol Level 148 MG/DL (< 200) LDL Cholesterol 91 mg/dL (<100) HDL Cholesterol 39 MG/DL (40-60) Cholesterol/HDL Ratio 3.8 (3.3-4.4) Thyroid Stimulating Hormone (TSH) 5.166 uiU/mL (0.358-3.740) 4.183 uiU/mL (0.358-3.740) Urine Opiates Screen Positive (NEGATIVE) Urine Barbiturates Screen Positive (NEGATIVE) Phencyclidine (PCP) Screen Negative (NEGATIVE) Urine Amphetamines Screen Positive (NEGATIVE) Urine Benzodiazepines Screen Positive (NEGATIVE) Urine Cocaine Screen Negative (NEGATIVE) Urine Marijuana (THC) Screen Negative (NEGATIVE) Free Thyroxine 1.20 NG/DL (0.76-1.46) Free Triiodothyronine 3.2 pg/mL (2.3-4.2) Height (Feet): 5 Height (Inches): 5.00 Weight (Pounds): 160 Objective General: well appearing, no apparent distress, alert Heent uvula midline, moist mucus membranes, supple neck Respiratory: lungs clear, no respiratory distress Cardiovascular: normal peripheral pulses, regular rate Gastrointestinal: soft, no guarding, no rebound, ttp Musculoskeletal: normal inspection Neurologic: alert, oriented x3 Psychiatric: mood/affect normal Skin: no rash, warm/dry Chacho Mead MD Sep 18, 2020 07:02
--- NOTE | 2020-09-18 07:15 | General Progress Note ---
Subjective ROS Limited/Unobtainable: Yes Allergies: Coded Allergies: No Known Allergies (Unverified , 07/06/20) Objective Last 24 Hour Vital Signs Date Time Temp Pulse Resp B/P (MAP) Pulse Ox O2 Delivery O2 Flow Rate FiO2 09/18/20 06:34 91 23 136/88 97 09/18/20 04:00 96.6 84 16 121/90 (100) 97 09/18/20 00:00 96.8 85 16 105/75 (85) 97 09/17/20 21:43 76 18 138/88 97 09/17/20 21:13 88 23 146/102 98 09/17/20 21:00 Room Air 09/17/20 20:38 97.7 09/17/20 20:00 96.6 75 17 142/105 (117) 100 09/17/20 18:30 76 18 128/90 99 09/17/20 18:00 73 18 127/91 97 09/17/20 17:07 73 127/91 09/17/20 16:00 97.7 73 18 127/91 (103) 97 09/17/20 12:00 97.3 76 18 121/75 (90) 96 09/17/20 09:29 76 18 115/79 98 09/17/20 09:00 Room Air 09/17/20 08:59 78 19 117/76 97 09/17/20 08:49 117/76 09/17/20 08:49 78 117/76 09/17/20 08:00 97.3 78 19 117/76 (90) 97 Intake and Output 09/17/20 09/18/20 19:00 07:00 Intake Total 1180 ml 2100 ml Output Total 700 ml Balance 480 ml 2100 ml Intake Oral 1080 ml 2000 ml IV Total 100 ml 100 ml Output Urine Total 700 ml # Voids 5 Laboratory Tests 09/17/20 07:30: White Blood Count 5.7, Red Blood Count 5.42, Hemoglobin 16.3, Hematocrit 50.0, Mean Corpuscular Volume 92, Mean Corpuscular Hemoglobin 30.1, Mean Corpuscular Hemoglobin Concent 32.7, Red Cell Distribution Width 14.2, Platelet Count 207, Mean Platelet Volume 8.0, Neutrophils (%) (Auto) 46.1, Lymphocytes (%) (Auto) 42.4, Monocytes (%) (Auto) 8.1, Eosinophils (%) (Auto) 2.5, Basophils (%) (Auto) 1.0, Sodium Level 135L, Potassium Level 3.4L, Chloride Level 101, Carbon Dioxide Level 27, Anion Gap 7, Blood Urea Nitrogen 2L, Creatinine 1.1, Estimat Glomerular Filtration Rate > 60, Glucose Level 118H, Calcium Level 8.3L, Total Bilirubin 0.3, Aspartate Amino Transf (AST/SGOT) 58H, Alanine Aminotransferase (ALT/SGPT) 58, Alkaline Phosphatase 131H, Total Protein 6.7, Albumin 2.3L, Globulin 4.4, Albumin/Globulin Ratio 0.5L, Thyroid Stimulating Hormone (TSH) 4.183H, Free Thyroxine 1.20, Free Triiodothyronine 3.2 Height (Feet): 5 Height (Inches): 5.00 Weight (Pounds): 160 EENT: normal ENT inspection Neck: supple Cardiovascular: normal peripheral pulses Respiratory/Chest: lungs clear Abdomen: normal bowel sounds, non tender, soft Extremities: non-tender Assessment/Plan Problem List: (1) Esophagitis ICD Codes: K20.90 - Esophagitis, unspecified without bleeding SNOMED: 31334973 (2) Anxiety ICD Codes: F41.9 - Anxiety disorder, unspecified SNOMED: 94743829 (3) Methamphetamine abuse ICD Codes: F15.10 - Other stimulant abuse, uncomplicated SNOMED: 005701098 (4) HTN (hypertension) ICD Codes: I10 - Essential (primary) hypertension SNOMED: 65610687 (5) Seizure ICD Codes: R56.9 - Unspecified convulsions SNOMED: 28166410 (6) Schizophrenia ICD Codes: F20.9 - Schizophrenia, unspecified SNOMED: 83292654 Status: progressing Assessment/Plan: s/p EGD reflux measures PPI carafate bowel regimen fu labs Richar Baires MD Sep 18, 2020 07:15
[2020-09-18 08:00] VITALS: BP 114/77
[2020-09-18] MEDS: Sucralfate 1gm tab ORAL SCH ×4 (08:29→20:28)
[2020-09-18] MEDS: BuPROPion XL 150mg tab ORAL SCH (08:30)
[2020-09-18] MEDS: Docusate 100mg cap ORAL SCH ×2 (08:31→17:11)
[2020-09-18] MEDS: Morphine Sulfate 2mg/ml Inj(IV/IM USE ONLY) IVP PRN ×4 (08:32→19:31)
[2020-09-18 08:35] LABS: BASOPHILS % (AUTO) 1.5 % (0.0-2.0); EOSINOPHILS % (AUTO) 4.5 % (0.0-3.0); HEMATOCRIT 45.3 % (42.0-52.0); HEMOGLOBIN 14.8 G/DL (14.2-18.0); LYMPHOCYTES % (AUTO) 46.3 % (20.0-45.0); MEAN CORPUSCULAR VOLUME 91 FL (80-99); MONOCYTES % (AUTO) 10.4 % (1.0-10.0); NEUTROPHILS % (AUTO) 37.3 % (45.0-75.0); PLATELET COUNT 174 K/UL (150-450); RED BLOOD COUNT 4.96 M/UL (4.70-6.10); RED CELL DISTRIBUTION WIDTH 14.2 % (11.6-14.8); WHITE BLOOD COUNT 3.8 K/UL (4.8-10.8)
[2020-09-18] MEDS: Heparin 5000 units/ml inj SUBQ SCH ×2 (08:40→20:31)
[2020-09-18] MEDS: Lisinopril 20mg tab ORAL SCH (08:44)
[2020-09-18 08:47] LABS: ANION GAP 6 mmol/L (5-15); BLOOD UREA NITROGEN 3 mg/dL (7-18); CARBON DIOXIDE 27 MMOL/L (21-32); CHLORIDE 104 MMOL/L (98-107); CREATININE 0.9 MG/DL (0.55-1.30); POTASSIUM 3.6 MMOL/L (3.5-5.1); SODIUM 137 MMOL/L (136-145)
[2020-09-18 12:00] VITALS: BP 144/97
--- NOTE | 2020-09-18 13:42 | General Progress Note ---
Subjective Allergies: Coded Allergies: No Known Allergies (Unverified , 07/06/20) All Systems: reviewed and negative except above Subjective events noted interval notes reviewed Objective Last 24 Hour Vital Signs Date Time Temp Pulse Resp B/P (MAP) Pulse Ox O2 Delivery O2 Flow Rate FiO2 09/18/20 13:08 71 19 144/97 100 09/18/20 12:25 97.0 09/18/20 12:00 97.0 71 19 144/97 (113) 100 09/18/20 09:02 97.2 09/18/20 09:00 Room Air 09/18/20 08:44 114/77 09/18/20 08:31 79 114/77 09/18/20 08:00 97.2 79 18 114/77 (89) 100 09/18/20 07:04 91 23 136/88 97 09/18/20 06:34 91 23 136/88 97 09/18/20 04:00 96.6 84 16 121/90 (100) 97 09/18/20 00:00 96.8 85 16 105/75 (85) 97 09/17/20 21:43 76 18 138/88 97 09/17/20 21:13 88 23 146/102 98 09/17/20 21:00 Room Air 09/17/20 20:38 97.7 09/17/20 20:00 96.6 75 17 142/105 (117) 100 09/17/20 18:30 76 18 128/90 99 09/17/20 18:00 73 18 127/91 97 09/17/20 17:07 73 127/91 09/17/20 16:00 97.7 73 18 127/91 (103) 97 Intake and Output 09/17/20 09/18/20 19:00 07:00 Intake Total 1180 ml 2100 ml Output Total 700 ml Balance 480 ml 2100 ml Intake Oral 1080 ml 2000 ml IV Total 100 ml 100 ml Output Urine Total 700 ml # Voids 5 Laboratory Tests 09/18/20 06:30: White Blood Count 3.8L, Red Blood Count 4.96, Hemoglobin 14.8, Hematocrit 45.3, Mean Corpuscular Volume 91, Mean Corpuscular Hemoglobin 29.9, Mean Corpuscular Hemoglobin Concent 32.8, Red Cell Distribution Width 14.2, Platelet Count 174, Mean Platelet Volume 7.6, Neutrophils (%) (Auto) 37.3L, Lymphocytes (%) (Auto) 46.3H, Monocytes (%) (Auto) 10.4H, Eosinophils (%) (Auto) 4.5H, Basophils (%) (Auto) 1.5, Sodium Level 137, Potassium Level 3.6, Chloride Level 104, Carbon Dioxide Level 27, Anion Gap 6, Blood Urea Nitrogen 3L, Creatinine 0.9, Estimat Glomerular Filtration Rate > 60, Glucose Level 126H, Calcium Level 8.0L Height (Feet): 5 Height (Inches): 5.00 Weight (Pounds): 160 General Appearance: no apparent distress Neck: normal alignment Cardiovascular: normal rate Respiratory/Chest: lungs clear Abdomen: normal bowel sounds Objective Current Medications Medications (Trade) Dose Ordered Sig/Pascual Route PRN Reason Start Time Stop Time Status Last Admin Dose Admin Acetaminophen (Tylenol) 650 mg Q4H PRN RECTAL Temp >100.5 09/15/20 23:30 10/15/20 23:29 Atenolol (Tenormin) 50 mg BID ORAL 09/16/20 09:00 10/16/20 08:59 09/18/20 08:31 Barium Sulfate (Varibar Honey) 250 ml NOW PRN RAD 09/16/20 07:00 09/19/20 06:57 Barium Sulfate (Varibar [place]) 240 ml NOW PRN RAD 09/16/20 07:00 09/19/20 06:57 Barium Sulfate (Varibar Pudding) 230 ml NOW PRN RAD 09/16/20 07:00 09/19/20 06:57 Barium Sulfate (Varibar Thin Liquid powder) 148 gm NOW PRN RAD 09/16/20 07:00 09/19/20 06:57 Bupropion HCl (Wellbutrin XL) 150 mg DAILY ORAL 09/16/20 09:00 10/16/20 08:59 09/18/20 08:30 Dextrose (Dextrose 50%) 25 ml Q30M PRN IV Hypoglycemia 09/15/20 23:30 12/14/20 23:29 Dextrose (Dextrose 50%) 50 ml Q30M PRN IV Hypoglycemia 09/15/20 23:30 12/14/20 23:29 Docusate Sodium (Colace) 100 mg TWICE A DAY ORAL 09/16/20 18:00 10/16/20 17:59 09/18/20 08:31 Heparin Sodium (Porcine) (Heparin 5000 units/ml) 5,000 units EVERY 12 HOURS SUBQ 09/16/20 09:00 10/31/20 08:59 09/18/20 08:40 Linaclotide (Linzess) 290 mcg BEFORE BREAKFAST ORAL 09/17/20 06:30 12/16/20 06:29 09/18/20 06:28 Lisinopril (PriniviL) 10 mg DAILY ORAL 09/16/20 09:00 10/16/20 08:59 09/17/20 08:49 Lorazepam (Ativan) 2 mg EVERY 4 HOURS PRN ORAL For Anxiety 09/17/20 21:00 09/24/20 20:59 09/18/20 13:08 Morphine Sulfate (Morphine Sulfate) 2 mg EVERY 3 HOURS PRN IVP Moderate Pain (Pain Scale 4-6) 09/15/20 23:30 09/22/20 23:29 09/18/20 11:55 Olanzapine (ZyPREXA) 20 mg BEDTIME ORAL 09/16/20 21:00 10/31/20 20:59 09/17/20 20:08 Ondansetron HCl (Zofran) 4 mg Q6H PRN IVP Nausea & Vomiting 09/15/20 23:30 10/15/20 23:29 09/15/20 23:54 Pantoprazole (Protonix) 40 mg EVERY 12 HOURS ORAL 09/17/20 21:00 10/17/20 20:59 09/18/20 08:31 Sucralfate (Carafate) 1 gm FOUR TIMES A DAY ORAL 09/17/20 09:00 12/16/20 08:59 09/18/20 11:59 Assessment/Plan Problem List: (1) Elevated TSH ICD Codes: R79.89 - Other specified abnormal findings of blood chemistry SNOMED: 362912812 Status: progressing Assessment/Plan: TSH repeated and improved free T4 and T3 are normal this most likely represent "sick euthyroid" no need to start thyroxine repeat thyroid function as OP in 1 month I sign off Zechariah Berkowitz MD Sep 18, 2020 13:42
--- NOTE | 2020-09-18 13:47 | General Progress Note ---
Subjective ROS Limited/Unobtainable: Yes Allergies: Coded Allergies: No Known Allergies (Unverified , 07/06/20) Objective Last 24 Hour Vital Signs Date Time Temp Pulse Resp B/P (MAP) Pulse Ox O2 Delivery O2 Flow Rate FiO2 09/18/20 13:38 71 19 144/97 100 09/18/20 13:08 71 19 144/97 100 09/18/20 12:25 97.0 09/18/20 12:00 97.0 71 19 144/97 (113) 100 09/18/20 09:02 97.2 09/18/20 09:00 Room Air 09/18/20 08:44 114/77 09/18/20 08:31 79 114/77 09/18/20 08:00 97.2 79 18 114/77 (89) 100 09/18/20 07:04 91 23 136/88 97 09/18/20 06:34 91 23 136/88 97 09/18/20 04:00 96.6 84 16 121/90 (100) 97 09/18/20 00:00 96.8 85 16 105/75 (85) 97 09/17/20 21:43 76 18 138/88 97 09/17/20 21:13 88 23 146/102 98 09/17/20 21:00 Room Air 09/17/20 20:38 97.7 09/17/20 20:00 96.6 75 17 142/105 (117) 100 09/17/20 18:30 76 18 128/90 99 09/17/20 18:00 73 18 127/91 97 09/17/20 17:07 73 127/91 09/17/20 16:00 97.7 73 18 127/91 (103) 97 Intake and Output 09/17/20 09/18/20 19:00 07:00 Intake Total 1180 ml 2100 ml Output Total 700 ml Balance 480 ml 2100 ml Intake Oral 1080 ml 2000 ml IV Total 100 ml 100 ml Output Urine Total 700 ml # Voids 5 Laboratory Tests 09/18/20 06:30: White Blood Count 3.8L, Red Blood Count 4.96, Hemoglobin 14.8, Hematocrit 45.3, Mean Corpuscular Volume 91, Mean Corpuscular Hemoglobin 29.9, Mean Corpuscular Hemoglobin Concent 32.8, Red Cell Distribution Width 14.2, Platelet Count 174, Mean Platelet Volume 7.6, Neutrophils (%) (Auto) 37.3L, Lymphocytes (%) (Auto) 46.3H, Monocytes (%) (Auto) 10.4H, Eosinophils (%) (Auto) 4.5H, Basophils (%) (Auto) 1.5, Sodium Level 137, Potassium Level 3.6, Chloride Level 104, Carbon Dioxide Level 27, Anion Gap 6, Blood Urea Nitrogen 3L, Creatinine 0.9, Estimat Glomerular Filtration Rate > 60, Glucose Level 126H, Calcium Level 8.0L Height (Feet): 5 Height (Inches): 5.00 Weight (Pounds): 160 Assessment/Plan Problem List: (1) Palpitations ICD Codes: R00.2 - Palpitations SNOMED: 41753901 (2) Alcohol intoxication ICD Codes: F10.929 - Alcohol use, unspecified with intoxication, unspecified SNOMED: 10302274, 35220024 (3) Hypokalemia ICD Codes: E87.6 - Hypokalemia SNOMED: 47927229 (4) Colitis ICD Codes: K52.9 - Noninfective gastroenteritis and colitis, unspecified SNOMED: 10870222 (5) Schizophrenia ICD Codes: F20.9 - Schizophrenia, unspecified SNOMED: 45638237 (6) Seizure ICD Codes: R56.9 - Unspecified convulsions SNOMED: 04670488 (7) Malnutrition ICD Codes: E46 - Unspecified protein-calorie malnutrition SNOMED: 73238068 (8) Alcohol withdrawal ICD Codes: F10.239 - Alcohol dependence with withdrawal, unspecified SNOMED: 630850844 (9) Nausea ICD Codes: R11.0 - Nausea SNOMED: 646151572 (10) Amphetamine abuse ICD Codes: F15.10 - Other stimulant abuse, uncomplicated SNOMED: 26429586 (11) HTN (hypertension) ICD Codes: I10 - Essential (primary) hypertension SNOMED: 68842925 (12) Methamphetamine abuse ICD Codes: F15.10 - Other stimulant abuse, uncomplicated SNOMED: 487134299 (13) Esophagitis ICD Codes: K20.90 - Esophagitis, unspecified without bleeding SNOMED: 57423135 Status: progressing Assessment/Plan: polysubstance abuse htn r/o dt no siezure afebrile no change Maria Meyer MD 15, 2020 13:47
[2020-09-18 16:00] VITALS: BP 128/88
--- NOTE | 2020-09-18 16:18 | Cardiology Report ---
APPROVED REPORT EKG Measurement Heart [id number] ID [id number] <Conclusion> Normal sinus rhythm ST & T wave abnormality, consider inferior ischemia Prolonged QT Abnormal ECG
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
[2020-09-18 20:00] VITALS: BP 142/90
[2020-09-18] MEDS: OLANZapine 10mg tab ORAL SCH (21:55)
[2020-09-19] VITALS: BP 116/73
[2020-09-19 04:00] VITALS: BP 123/81
[2020-09-19] MEDS: LORazepam 0.5mg tab ORAL PRN ×3 (05:23→18:54)
--- NOTE | 2020-09-19 07:03 | Hematology/Onc Progress Note ---
Assessment/Plan Assessment/Plan Assessment and Recs # Esophageal distal thickening, r/o malignancy v other process --> imaging has been reviewed --> further eval with gi, was completed --> likely at some point will need endoscopy-->completed no mass # Leukopenia may be related to inflammatory cause, Colitis --> ABX started on ceftriaxone, Flagyl --> hepatitis and hiv ordered --> smear is reviewed # Fatty liver. 7 mm enhancing lesion in the right lobe. --> imaging us noted # Abd pain --> likely due to above # Nausea and vomiting --> zofran prn --> remains on ivfs # Dvt ppx ambulation --> heparin sq Appreciate consultation and douglas RN Subjective HEENT: Denies: no symptoms, eye pain, blurred vision, tearing, double vision, ear pain, ear discharge, nose pain, nose congestion, throat pain, throat swelling, mouth pain, mouth swelling, other Cardiovascular: Denies: no symptoms, chest pain, edema, irregular heart rate, lightheadedness, palpitations, syncope, other Respiratory: Denies: no symptoms, cough, shortness of breath, SOB with excertion, SOB at rest, sputum, wheezing, other Gastrointestinal/Abdominal: Denies: no symptoms, abdomen distended, abdominal pain, black stools, tarry stools, blood in stool, constipated, diarrhea, difficulty swallowing, nausea, poor appetite, poor fluid intake, rectal bleeding, vomiting, other Genitourinary: Denies: no symptoms, burning, discharge, frequency, flank pain, hematuria, incontinence, pain, urgency, other Endocrine: Denies: no symptoms, excessive sweating, flushing, intolerance to cold, intolerance to heat, increased hunger, increased thirst, increased urine, unexplained weight gain, unexplained weight loss, other Hematologic/Lymphatic: Denies: no symptoms, anemia, easy bleeding, easy bruising, adenopathy, other Allergies: Coded Allergies: No Known Allergies (Unverified , 07/06/20) Subjective 09/18 labs reviewed, meds noted, no bleeding, egd completed 09/19 no bleeding or chills, meds reviewed, labs noted Objective Objective Current Medications Medications (Trade) Dose Ordered Sig/Pascual Route PRN Reason Start Time Stop Time Status Last Admin Dose Admin Acetaminophen (Tylenol) 650 mg Q4H PRN RECTAL Temp >100.5 09/15/20 23:30 10/15/20 23:29 Atenolol (Tenormin) 50 mg BID ORAL 09/16/20 09:00 10/16/20 08:59 09/18/20 17:12 Bupropion HCl (Wellbutrin XL) 150 mg DAILY ORAL 09/16/20 09:00 10/16/20 08:59 09/18/20 08:30 Dextrose (Dextrose 50%) 25 ml Q30M PRN IV Hypoglycemia 09/15/20 23:30 12/14/20 23:29 Dextrose (Dextrose 50%) 50 ml Q30M PRN IV Hypoglycemia 09/15/20 23:30 12/14/20 23:29 Docusate Sodium (Colace) 100 mg TWICE A DAY ORAL 09/16/20 18:00 10/16/20 17:59 09/18/20 17:11 Heparin Sodium (Porcine) (Heparin 5000 units/ml) 5,000 units EVERY 12 HOURS SUBQ 09/16/20 09:00 10/31/20 08:59 09/18/20 20:31 Linaclotide (Linzess) 290 mcg BEFORE BREAKFAST ORAL 09/17/20 06:30 12/16/20 06:29 09/19/20 06:09 Lisinopril (PriniviL) 10 mg DAILY ORAL 09/16/20 09:00 10/16/20 08:59 09/17/20 08:49 Lorazepam (Ativan) 2 mg EVERY 4 HOURS PRN ORAL For Anxiety 09/17/20 21:00 09/24/20 20:59 09/19/20 05:23 Morphine Sulfate (Morphine Sulfate) 2 mg EVERY 3 HOURS PRN IVP Moderate Pain (Pain Scale 4-6) 09/15/20 23:30 09/22/20 23:29 09/19/20 00:00 Olanzapine (ZyPREXA) 20 mg BEDTIME ORAL 09/16/20 21:00 10/31/20 20:59 09/18/20 21:55 Ondansetron HCl (Zofran) 4 mg Q6H PRN IVP Nausea & Vomiting 09/15/20 23:30 10/15/20 23:29 09/15/20 23:54 Pantoprazole (Protonix) 40 mg EVERY 12 HOURS ORAL 09/17/20 21:00 10/17/20 20:59 09/18/20 20:28 Sucralfate (Carafate) 1 gm FOUR TIMES A DAY ORAL 09/17/20 09:00 12/16/20 08:59 09/18/20 20:28 Last 24 Hour Vital Signs Date Time Temp Pulse Resp B/P (MAP) Pulse Ox O2 Delivery O2 Flow Rate FiO2 09/19/20 05:53 75 18 126/71 99 09/19/20 05:23 88 23 131/76 97 09/19/20 04:00 97.3 75 18 123/81 (95) 94 09/19/20 00:30 97.0 09/19/20 00:00 98.6 73 19 116/73 (87) 97 09/18/20 21:00 Room Air 09/18/20 20:59 79 18 131/83 99 09/18/20 20:29 78 19 142/90 98 09/18/20 20:01 97.0 09/18/20 20:00 97.8 78 19 142/90 (107) 98 09/18/20 17:12 80 128/88 09/18/20 16:49 97.0 09/18/20 16:00 97.2 80 18 128/88 (101) 100 09/18/20 13:38 71 19 144/97 100 09/18/20 13:08 71 19 144/97 100 09/18/20 12:25 97.0 09/18/20 12:00 97.0 71 19 144/97 (113) 100 09/18/20 09:02 97.2 09/18/20 09:00 Room Air 09/18/20 08:44 114/77 09/18/20 08:31 79 114/77 09/18/20 08:00 97.2 79 18 114/77 (89) 100 09/18/20 07:04 91 23 136/88 97 09/18/20 06:34 91 23 136/88 97 09/18/20 04:00 96.6 84 16 121/90 (100) 97 09/18/20 00:00 96.8 85 16 105/75 (85) 97 09/17/20 21:43 76 18 138/88 97 09/17/20 21:13 88 23 146/102 98 09/17/20 21:00 Room Air 09/17/20 20:38 97.7 09/17/20 20:00 96.6 75 17 142/105 (117) 100 09/17/20 18:30 76 18 128/90 99 09/17/20 18:00 73 18 127/91 97 09/17/20 17:07 73 127/91 09/17/20 16:00 97.7 73 18 127/91 (103) 97 09/17/20 12:00 97.3 76 18 121/75 (90) 96 09/17/20 09:29 76 18 115/79 98 09/17/20 09:00 Room Air 09/17/20 08:59 78 19 117/76 97 09/17/20 08:49 117/76 09/17/20 08:49 78 117/76 09/17/20 08:00 97.3 78 19 117/76 (90) 97 Intake and Output 09/18/20 09/19/20 19:00 07:00 Intake Total 1320 ml 1200 ml Balance 1320 ml 1200 ml Intake Oral 1320 ml 1200 ml # Voids 1 6 # Bowel Movements 1 Labs Test 09/16/20 10:15 09/17/20 07:30 09/18/20 06:30 Urine Opiates Screen Positive (NEGATIVE) Urine Barbiturates Screen Positive (NEGATIVE) Phencyclidine (PCP) Screen Negative (NEGATIVE) Urine Amphetamines Screen Positive (NEGATIVE) Urine Benzodiazepines Screen Positive (NEGATIVE) Urine Cocaine Screen Negative (NEGATIVE) Urine Marijuana (THC) Screen Negative (NEGATIVE) White Blood Count 5.7 K/UL (4.8-10.8) 3.8 K/UL (4.8-10.8) Red Blood Count 5.42 M/UL (4.70-6.10) 4.96 M/UL (4.70-6.10) Hemoglobin 16.3 G/DL (14.2-18.0) 14.8 G/DL (14.2-18.0) Hematocrit 50.0 % (42.0-52.0) 45.3 % (42.0-52.0) Mean Corpuscular Volume 92 FL (80-99) 91 FL (80-99) Mean Corpuscular Hemoglobin 30.1 PG (27.0-31.0) 29.9 PG (27.0-31.0) Mean Corpuscular Hemoglobin Concent 32.7 G/DL (32.0-36.0) 32.8 G/DL (32.0-36.0) Red Cell Distribution Width 14.2 % (11.6-14.8) 14.2 % (11.6-14.8) Platelet Count 207 K/UL (150-450) 174 K/UL (150-450) Mean Platelet Volume 8.0 FL (6.5-10.1) 7.6 FL (6.5-10.1) Neutrophils (%) (Auto) 46.1 % (45.0-75.0) 37.3 % (45.0-75.0) Lymphocytes (%) (Auto) 42.4 % (20.0-45.0) 46.3 % (20.0-45.0) Monocytes (%) (Auto) 8.1 % (1.0-10.0) 10.4 % (1.0-10.0) Eosinophils (%) (Auto) 2.5 % (0.0-3.0) 4.5 % (0.0-3.0) Basophils (%) (Auto) 1.0 % (0.0-2.0) 1.5 % (0.0-2.0) Sodium Level 135 MMOL/L (136-145) 137 MMOL/L (136-145) Potassium Level 3.4 MMOL/L (3.5-5.1) 3.6 MMOL/L (3.5-5.1) Chloride Level 101 MMOL/L (98-107) 104 MMOL/L (98-107) Carbon Dioxide Level 27 MMOL/L (21-32) 27 MMOL/L (21-32) Anion Gap 7 mmol/L (5-15) 6 mmol/L (5-15) Blood Urea Nitrogen 2 mg/dL (7-18) 3 mg/dL (7-18) Creatinine 1.1 MG/DL (0.55-1.30) 0.9 MG/DL (0.55-1.30) Estimat Glomerular Filtration Rate > 60 mL/min (>60) > 60 mL/min (>60) Glucose Level 118 MG/DL (74-106) 126 MG/DL (74-106) Calcium Level 8.3 MG/DL (8.5-10.1) 8.0 MG/DL (8.5-10.1) Total Bilirubin 0.3 MG/DL (0.2-1.0) Aspartate Amino Transf (AST/SGOT) 58 U/L (15-37) Alanine Aminotransferase (ALT/SGPT) 58 U/L (12-78) Alkaline Phosphatase 131 U/L (46-116) Total Protein 6.7 G/DL (6.4-8.2) Albumin 2.3 G/DL (3.4-5.0) Globulin 4.4 g/dL Albumin/Globulin Ratio 0.5 (1.0-2.7) Thyroid Stimulating Hormone (TSH) 4.183 uiU/mL (0.358-3.740) Free Thyroxine 1.20 NG/DL (0.76-1.46) Free Triiodothyronine 3.2 pg/mL (2.3-4.2) Height (Feet): 5 Height (Inches): 5.00 Weight (Pounds): 160 Objective General: well appearing, no apparent distress, alert Heent uvula midline, moist mucus membranes, supple neck Respiratory: lungs clear, no respiratory distress Cardiovascular: normal peripheral pulses, regular rate Gastrointestinal: soft, no guarding, no rebound, ttp Musculoskeletal: normal inspection Neurologic: alert, oriented x3 Psychiatric: mood/affect normal Skin: no rash, warm/dry Chacho Mead MD Sep 19, 2020 07:03
[2020-09-19 08:00] VITALS: BP 129/75
[2020-09-19] MEDS: Docusate 100mg cap ORAL SCH ×2 (08:04→17:51)
[2020-09-19] MEDS: Sucralfate 1gm tab ORAL SCH ×4 (08:05→21:00)
[2020-09-19] MEDS: Lisinopril 20mg tab ORAL SCH (08:05)
[2020-09-19] MEDS: BuPROPion XL 150mg tab ORAL SCH (08:05)
[2020-09-19] MEDS: Morphine Sulfate 2mg/ml Inj(IV/IM USE ONLY) IVP PRN ×4 (08:06→21:00)
[2020-09-19] MEDS: Heparin 5000 units/ml inj SUBQ SCH ×2 (08:07→20:50)
--- NOTE | 2020-09-19 10:24 | General Progress Note ---
Subjective Constitutional: Reports: weakness Allergies: Coded Allergies: No Known Allergies (Unverified , 07/06/20) All Systems: reviewed and negative except above Subjective sleepy calm Objective Last 24 Hour Vital Signs Date Time Temp Pulse Resp B/P (MAP) Pulse Ox O2 Delivery O2 Flow Rate FiO2 09/19/20 08:05 129/75 09/19/20 08:05 85 129/75 09/19/20 08:00 97.7 85 18 129/75 (93) 95 09/19/20 05:53 75 18 126/71 99 09/19/20 05:23 88 23 131/76 97 09/19/20 04:00 97.3 75 18 123/81 (95) 94 09/19/20 00:30 97.0 09/19/20 00:00 98.6 73 19 116/73 (87) 97 09/18/20 21:00 Room Air 09/18/20 20:59 79 18 131/83 99 09/18/20 20:29 78 19 142/90 98 09/18/20 20:01 97.0 09/18/20 20:00 97.8 78 19 142/90 (107) 98 09/18/20 17:12 80 128/88 09/18/20 16:49 97.0 09/18/20 16:00 97.2 80 18 128/88 (101) 100 09/18/20 13:38 71 19 144/97 100 09/18/20 13:08 71 19 144/97 100 09/18/20 12:25 97.0 09/18/20 12:00 97.0 71 19 144/97 (113) 100 Intake and Output 09/18/20 09/19/20 19:00 07:00 Intake Total 1320 ml 1200 ml Balance 1320 ml 1200 ml Intake Oral 1320 ml 1200 ml # Voids 1 6 # Bowel Movements 1 Laboratory Tests 09/19/20 08:46: Hepatitis A IgM Antibody [Pending], Hepatitis B Surface Antigen [Pending], Hepatitis B Core IgM Antibody [Pending], Hepatitis C Antibody [Pending], HIV (1&2) Antibody Rapid Negative Height (Feet): 5 Height (Inches): 5.00 Weight (Pounds): 160 General Appearance: lethargic EENT: normal ENT inspection Neck: normal alignment Cardiovascular: normal peripheral pulses, normal rate, regular rhythm Respiratory/Chest: chest wall non-tender, lungs clear, normal breath sounds Abdomen: normal bowel sounds, non tender, soft Extremities: normal inspection Edema: no edema noted Arm (L), no edema noted Arm (R), no edema noted Leg (L), no edema noted Leg (R), no edema noted Pedal (L), no edema noted Pedal (R), no edema noted Generalized Neurologic: motor weakness Skin: normal pigmentation, warm/dry Assessment/Plan Problem List: (1) Abdominal pain ICD Codes: R10.9 - Unspecified abdominal pain SNOMED: 13420658 (2) Hypothyroid ICD Codes: E03.9 - Hypothyroidism, unspecified SNOMED: 56708245 (3) Colitis ICD Codes: K52.9 - Noninfective gastroenteritis and colitis, unspecified SNOMED: 58438371 (4) Schizophrenia ICD Codes: F20.9 - Schizophrenia, unspecified SNOMED: 65721868 (5) Alcohol intoxication ICD Codes: F10.929 - Alcohol use, unspecified with intoxication, unspecified SNOMED: 61789159, 61108719 (6) Malnutrition ICD Codes: E46 - Unspecified protein-calorie malnutrition SNOMED: 17030970 (7) Nausea ICD Codes: R11.0 - Nausea SNOMED: 488068701 (8) Elevated LFTs ICD Codes: R79.89 - Other specified abnormal findings of blood chemistry SNOMED: 776579038, 033139287 (9) Methamphetamine abuse ICD Codes: F15.10 - Other stimulant abuse, uncomplicated SNOMED: 240770153 Status: stable, progressing Assessment/Plan: diet pain control gi sx f/u cbc bmp am dc plan snf Santos Pham DO Sep 19, 2020 10:24
--- NOTE | 2020-09-19 11:46 | General Progress Note ---
Subjective ROS Limited/Unobtainable: No Allergies: Coded Allergies: No Known Allergies (Unverified , 07/06/20) Objective Last 24 Hour Vital Signs Date Time Temp Pulse Resp B/P (MAP) Pulse Ox O2 Delivery O2 Flow Rate FiO2 09/19/20 08:36 97.7 09/19/20 08:05 129/75 09/19/20 08:05 85 129/75 09/19/20 08:00 97.7 85 18 129/75 (93) 95 09/19/20 05:53 75 18 126/71 99 09/19/20 05:23 88 23 131/76 97 09/19/20 04:00 97.3 75 18 123/81 (95) 94 09/19/20 00:30 97.0 09/19/20 00:00 98.6 73 19 116/73 (87) 97 09/18/20 21:00 Room Air 09/18/20 20:59 79 18 131/83 99 09/18/20 20:29 78 19 142/90 98 09/18/20 20:01 97.0 09/18/20 20:00 97.8 78 19 142/90 (107) 98 09/18/20 17:12 80 128/88 09/18/20 16:49 97.0 09/18/20 16:00 97.2 80 18 128/88 (101) 100 09/18/20 13:38 71 19 144/97 100 09/18/20 13:08 71 19 144/97 100 09/18/20 12:25 97.0 09/18/20 12:00 97.0 71 19 144/97 (113) 100 Intake and Output 0 09/18/20 09/19/20 19:00 07:00 Intake Total 1320 ml 1200 ml Balance 1320 ml 1200 ml Intake Oral 1320 ml 1200 ml # Voids 1 6 # Bowel Movements 1 Laboratory Tests 09/19/20 08:46: Hepatitis A IgM Antibody [Pending], Hepatitis B Surface Antigen [Pending], Hepatitis B Core IgM Antibody [Pending], Hepatitis C Antibody [Pending], HIV (1&2) Antibody Rapid Negative Height (Feet): 5 Height (Inches): 5.00 Weight (Pounds): 160 General Appearance: alert EENT: normal ENT inspection Neck: supple Cardiovascular: normal rate Respiratory/Chest: decreased breath sounds Abdomen: normal bowel sounds, non tender, soft Extremities: non-tender Assessment/Plan Problem List: (1) Esophagitis ICD Codes: K20.90 - Esophagitis, unspecified without bleeding SNOMED: 54402900 (2) Anxiety ICD Codes: F41.9 - Anxiety disorder, unspecified SNOMED: 50861254 (3) Methamphetamine abuse ICD Codes: F15.10 - Other stimulant abuse, uncomplicated SNOMED: 531668101 (4) HTN (hypertension) ICD Codes: I10 - Essential (primary) hypertension SNOMED: 37964545 (5) Seizure ICD Codes: R56.9 - Unspecified convulsions SNOMED: 44517013 (6) Schizophrenia ICD Codes: F20.9 - Schizophrenia, unspecified SNOMED: 78604948 Status: stable, progressing Assessment/Plan: s/p EGD reflux measures PPI carafate bowel regimen fu labs Richar Baires MD Sep 19, 2020 11:46
[2020-09-19 12:00] VITALS: BP 121/80
[2020-09-19 16:00] VITALS: BP 111/73
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
[2020-09-19 20:00] VITALS: BP 132/75
[2020-09-19] MEDS: OLANZapine 10mg tab ORAL SCH (20:49)
--- NOTE | 2020-09-19 23:22 | Psychiatric Progress Note ---
Psychiatry Progress Note Psychiatry Progress Note Medications Current Medications Medications (Trade) Dose Ordered Sig/Pascual Route PRN Reason Start Time Stop Time Status Last Admin Dose Admin Acetaminophen (Tylenol) 650 mg Q4H PRN RECTAL Temp >100.5 09/15/20 23:30 10/15/20 23:29 Atenolol (Tenormin) 50 mg BID ORAL 09/16/20 09:00 10/16/20 08:59 09/19/20 08:05 Bupropion HCl (Wellbutrin XL) 150 mg DAILY ORAL 09/16/20 09:00 10/16/20 08:59 09/19/20 08:05 Dextrose (Dextrose 50%) 25 ml Q30M PRN IV Hypoglycemia 09/15/20 23:30 12/14/20 23:29 Dextrose (Dextrose 50%) 50 ml Q30M PRN IV Hypoglycemia 09/15/20 23:30 12/14/20 23:29 Docusate Sodium (Colace) 100 mg TWICE A DAY ORAL 09/16/20 18:00 10/16/20 17:59 09/19/20 17:51 Heparin Sodium (Porcine) (Heparin 5000 units/ml) 5,000 units EVERY 12 HOURS SUBQ 09/16/20 09:00 10/31/20 08:59 09/19/20 20:50 Linaclotide (Linzess) 290 mcg BEFORE BREAKFAST ORAL 09/17/20 06:30 12/16/20 06:29 09/19/20 06:09 Lisinopril (PriniviL) 10 mg DAILY ORAL 09/16/20 09:00 10/16/20 08:59 09/19/20 08:05 Lorazepam (Ativan) 2 mg EVERY 4 HOURS PRN ORAL For Anxiety 09/17/20 21:00 09/24/20 20:59 09/19/20 18:54 Morphine Sulfate (Morphine Sulfate) 2 mg EVERY 3 HOURS PRN IVP Moderate Pain (Pain Scale 4-6) 09/15/20 23:30 09/22/20 23:29 09/19/20 21:00 Olanzapine (ZyPREXA) 20 mg BEDTIME ORAL 09/16/20 21:00 10/31/20 20:59 09/19/20 20:49 Ondansetron HCl (Zofran) 4 mg Q6H PRN IVP Nausea & Vomiting 09/15/20 23:30 10/15/20 23:29 09/15/20 23:54 Pantoprazole (Protonix) 40 mg EVERY 12 HOURS ORAL 09/17/20 21:00 10/17/20 20:59 09/19/20 21:00 Sucralfate (Carafate) 1 gm FOUR TIMES A DAY ORAL 09/17/20 09:00 12/16/20 08:59 09/19/20 21:00 Neurological/Psychiatric: Reports: anxiety, depressed, emotional problems; Denies: no symptoms, headache, numbness, paresthesia, pre-existing deficit, seizure, tingling, tremors, weakness, other Allergies: Coded Allergies: No Known Allergies (Unverified , 07/06/20) Objective Data Height (Feet): 5 Height (Inches): 5.00 Weight (Pounds): 160 General Appearance: alert Additional Comments: MENTAL STATUS EXAMINATION: Patient is awake, disoriented. Mood is anxious. Affect is flat. Thought process, there is a paucity of thought content. Thought content, no suicidal or homicidal ideation. Cognition is impaired. Insight and judgment is impaired. ASSESSMENT: [place] I Polysubstance dependence. Acute toxic encephalopathy. [place] II Deferred. [place] III None. [place] IV Moderate. [place] V 20. PLAN: 1. Olanzapine 20 mg. 2. Ativan p.r.n. 3. We will discontinue the Wellbutrin. 4. Patient should be discharged when medically stable. Assessment/Plan Status: stable, progressing Agnes Longo MD Sep 19, 2020 23:22
[2020-09-20] VITALS: BP 119/71
--- NOTE | 2020-09-20 02:29 | Consultation ---
DATE OF CONSULTATION: 09/19/2020 CONSULTING PHYSICIAN: Agnes Longo MD HISTORY OF PRESENT ILLNESS: Patient is a 50-year-old male with a history of multiple medical issues, who has been admitted to the hospital for medical stabilization. Patient is admitted for hypertension, schizophrenia, alcohol intoxication, anxiety. Patient is more awake and interacting more appropriately. The patient has episodes of confusion, agitation. PAST PSYCHIATRIC HISTORY: Anxiety and depression. PAST MEDICAL HISTORY: As above. ALLERGIES: No known drug allergies. SUBSTANCE ABUSE HISTORY: Significant for benzodiazepine, methamphetamine, barbiturate, and opiates. MENTAL STATUS EXAMINATION: Patient is awake, disoriented. Mood is anxious. Affect is flat. Thought process, there is a paucity of thought content. Thought content, no suicidal or homicidal ideation. Cognition is impaired. Insight and judgment is impaired. ASSESSMENT: [place] I Polysubstance dependence. Acute toxic encephalopathy. [place] II Deferred. [place] III None. [place] IV Moderate. [place] V 20. PLAN: 1. Olanzapine 20 mg. 2. Ativan p.r.n. 3. We will discontinue the Wellbutrin. 4. Patient should be discharged when medically stable. Agnes Longo M.D. DR: ENID JOB#: [id number] CC:
[2020-09-20 04:00] VITALS: BP 112/79
[2020-09-20] MEDS: LORazepam 0.5mg tab ORAL PRN ×2 (06:35→14:14)
--- NOTE | 2020-09-20 06:59 | Hematology/Onc Progress Note ---
Assessment/Plan Assessment/Plan Assessment and Recs # Esophageal distal thickening, r/o malignancy v other process --> imaging has been reviewed --> further eval with gi, was completed --> likely at some point will need endoscopy-->completed no mass # Leukopenia may be related to inflammatory cause, Colitis --> ABX started on ceftriaxone, Flagyl-->off --> hepatitis and hiv ordered --> smear is reviewed --> wbc 3.8 # Fatty liver. 7 mm enhancing lesion in the right lobe. --> imaging us noted # Abd pain --> likely due to above # Nausea and vomiting --> zofran prn --> remains on ivfs # Dvt ppx ambulation --> heparin sq Appreciate consultation and douglas RN Subjective Constitutional: Denies: no symptoms, chills, fever, malaise, weakness, other Cardiovascular: Denies: no symptoms, chest pain, edema, irregular heart rate, lightheadedness, palpitations, syncope, other Gastrointestinal/Abdominal: Denies: no symptoms, abdomen distended, abdominal pain, black stools, tarry stools, blood in stool, constipated, diarrhea, difficulty swallowing, nausea, poor appetite, poor fluid intake, rectal bleeding, vomiting, other Neurologic/Psychiatric: Denies: no symptoms, anxiety, depressed, emotional problems, headache, numbness, paresthesia, pre-existing deficit, seizure, tin gling, tremors, weakness, other Endocrine: Denies: no symptoms, excessive sweating, flushing, intolerance to cold, intolerance to heat, increased hunger, increased thirst, increased urine, unexplained weight gain, unexplained weight loss, other Hematologic/Lymphatic: Denies: no symptoms, anemia, easy bleeding, easy bruising, adenopathy, other Allergies: Coded Allergies: No Known Allergies (Unverified , 07/06/20) Subjective 09/18 labs reviewed, meds noted, no bleeding, egd completed 09/19 no bleeding or chills, meds reviewed, labs noted 09/20 with abd pain, labs reviewed, meds ntoed, no night sweats Objective Objective Current Medications Medications (Trade) Dose Ordered Sig/Pascual Route PRN Reason Start Time Stop Time Status Last Admin Dose Admin Acetaminophen (Tylenol) 650 mg Q4H PRN RECTAL Temp >100.5 09/15/20 23:30 10/15/20 23:29 Atenolol (Tenormin) 50 mg BID ORAL 09/16/20 09:00 10/16/20 08:59 09/19/20 08:05 Dextrose (Dextrose 50%) 25 ml Q30M PRN IV Hypoglycemia 09/15/20 23:30 12/14/20 23:29 Dextrose (Dextrose 50%) 50 ml Q30M PRN IV Hypoglycemia 09/15/20 23:30 12/14/20 23:29 Docusate Sodium (Colace) 100 mg TWICE A DAY ORAL 09/16/20 18:00 10/16/20 17:59 09/19/20 17:51 Heparin Sodium (Porcine) (Heparin 5000 units/ml) 5,000 units EVERY 12 HOURS SUBQ 09/16/20 09:00 10/31/20 08:59 09/19/20 20:50 Linaclotide (Linzess) 290 mcg BEFORE BREAKFAST ORAL 09/17/20 06:30 12/16/20 06:29 09/20/20 06:34 Lisinopril (PriniviL) 10 mg DAILY ORAL 09/16/20 09:00 10/16/20 08:59 09/19/20 08:05 Lorazepam (Ativan) 2 mg EVERY 4 HOURS PRN ORAL For Anxiety 09/17/20 21:00 09/24/20 20:59 09/20/20 06:35 Morphine Sulfate (Morphine Sulfate) 2 mg EVERY 3 HOURS PRN IVP Moderate Pain (Pain Scale 4-6) 09/15/20 23:30 09/22/20 23:29 09/19/20 21:00 Ondansetron HCl (Zofran) 4 mg Q6H PRN IVP Nausea & Vomiting 09/15/20 23:30 10/15/20 23:29 09/15/20 23:54 Pantoprazole (Protonix) 40 mg EVERY 12 HOURS ORAL 09/17/20 21:00 10/17/20 20:59 09/19/20 21:00 Sucralfate (Carafate) 1 gm FOUR TIMES A DAY ORAL 09/17/20 09:00 12/16/20 08:59 09/19/20 21:00 Last 24 Hour Vital Signs Date Time Temp Pulse Resp B/P (MAP) Pulse Ox O2 Delivery O2 Flow Rate FiO2 09/20/20 06:35 89 23 145/94 96 09/20/20 04:00 97.2 75 20 112/79 (90) 98 09/20/20 00:00 97.9 72 18 119/71 (87) 97 09/19/20 21:30 98.1 09/19/20 21:00 Room Air 09/19/20 20:00 97.6 78 20 132/75 (94) 99 09/19/20 19:24 74 18 111/73 96 09/19/20 18:54 74 18 111/73 96 09/19/20 17:51 74 111/73 09/19/20 16:00 98.1 74 18 111/73 (86) 96 09/19/20 15:27 96.8 09/19/20 14:34 74 18 121/80 95 09/19/20 14:04 74 18 121/80 95 09/19/20 12:00 96.8 74 18 121/80 (94) 95 09/19/20 09:00 Room Air 09/19/20 09:00 Room Air 09/19/20 08:36 97.7 09/19/20 08:05 129/75 09/19/20 08:05 85 129/75 09/19/20 08:00 97.7 85 18 129/75 (93) 95 09/19/20 05:53 75 18 126/71 99 09/19/20 05:23 88 23 131/76 97 09/19/20 04:00 97.3 75 18 123/81 (95) 94 09/19/20 00:30 97.0 09/19/20 00:00 98.6 73 19 116/73 (87) 97 09/18/20 21:00 Room Air 09/18/20 20:59 79 18 131/83 99 09/18/20 20:29 78 19 142/90 98 09/18/20 20:01 97.0 09/18/20 20:00 97.8 78 19 142/90 (107) 98 09/18/20 17:12 80 128/88 09/18/20 16:49 97.0 09/18/20 16:00 97.2 80 18 128/88 (101) 100 09/18/20 13:38 71 19 144/97 100 09/18/20 13:08 71 19 144/97 100 09/18/20 12:25 97.0 09/18/20 12:00 97.0 71 19 144/97 (113) 100 09/18/20 09:02 97.2 09/18/20 09:00 Room Air 09/18/20 08:44 114/77 09/18/20 08:31 79 114/77 09/18/20 08:00 97.2 79 18 114/77 (89) 100 09/18/20 07:04 91 23 136/88 97 Intake and Output 09/19/20 09/20/20 19:00 07:00 Intake Total 1080 ml 1500 ml Output Total 300 ml Balance 780 ml 1500 ml Intake Oral 1080 ml 1500 ml Output Urine Total 300 ml # Voids 5 Labs Test 09/17/20 07:30 09/18/20 06:30 09/19/20 08:46 09/20/20 06:29 White Blood Count 5.7 K/UL (4.8-10.8) 3.8 K/UL (4.8-10.8) Red Blood Count 5.42 M/UL (4.70-6.10) 4.96 M/UL (4.70-6.10) Hemoglobin 16.3 G/DL (14.2-18.0) 14.8 G/DL (14.2-18.0) Hematocrit 50.0 % (42.0-52.0) 45.3 % (42.0-52.0) Mean Corpuscular Volume 92 FL (80-99) 91 FL (80-99) Mean Corpuscular Hemoglobin 30.1 PG (27.0-31.0) 29.9 PG (27.0-31.0) Mean Corpuscular Hemoglobin Concent 32.7 G/DL (32.0-36.0) 32.8 G/DL (32.0-36.0) Red Cell Distribution Width 14.2 % (11.6-14.8) 14.2 % (11.6-14.8) Platelet Count 207 K/UL (150-450) 174 K/UL (150-450) Mean Platelet Volume 8.0 FL (6.5-10.1) 7.6 FL (6.5-10.1) Neutrophils (%) (Auto) 46.1 % (45.0-75.0) 37.3 % (45.0-75.0) Lymphocytes (%) (Auto) 42.4 % (20.0-45.0) 46.3 % (20.0-45.0) Monocytes (%) (Auto) 8.1 % (1.0-10.0) 10.4 % (1.0-10.0) Eosinophils (%) (Auto) 2.5 % (0.0-3.0) 4.5 % (0.0-3.0) Basophils (%) (Auto) 1.0 % (0.0-2.0) 1.5 % (0.0-2.0) Sodium Level 135 MMOL/L (136-145) 137 MMOL/L (136-145) Potassium Level 3.4 MMOL/L (3.5-5.1) 3.6 MMOL/L (3.5-5.1) Chloride Level 101 MMOL/L (98-107) 104 MMOL/L (98-107) Carbon Dioxide Level 27 MMOL/L (21-32) 27 MMOL/L (21-32) Anion Gap 7 mmol/L (5-15) 6 mmol/L (5-15) Blood Urea Nitrogen 2 mg/dL (7-18) 3 mg/dL (7-18) Creatinine 1.1 MG/DL (0.55-1.30) 0.9 MG/DL (0.55-1.30) Estimat Glomerular Filtration Rate > 60 mL/min (>60) > 60 mL/min (>60) Glucose Level 118 MG/DL (74-106) 126 MG/DL (74-106) Calcium Level 8.3 MG/DL (8.5-10.1) 8.0 MG/DL (8.5-10.1) Total Bilirubin 0.3 MG/DL (0.2-1.0) Aspartate Amino Transf (AST/SGOT) 58 U/L (15-37) Alanine Aminotransferase (ALT/SGPT) 58 U/L (12-78) Alkaline Phosphatase 131 U/L (46-116) Total Protein 6.7 G/DL (6.4-8.2) Albumin 2.3 G/DL (3.4-5.0) Globulin 4.4 g/dL Albumin/Globulin Ratio 0.5 (1.0-2.7) Thyroid Stimulating Hormone (TSH) 4.183 uiU/mL (0.358-3.740) Free Thyroxine 1.20 NG/DL (0.76-1.46) Free Triiodothyronine 3.2 pg/mL (2.3-4.2) HIV (1&2) Antibody Rapid Negative (NEGATIVE) Height (Feet): 5 Height (Inches): 5.00 Weight (Pounds): 160 Objective General: well appearing, no apparent distress, alert Heent uvula midline, moist mucus membranes, supple neck Respiratory: lungs clear, no respiratory distress Cardiovascular: normal peripheral pulses, regular rate Gastrointestinal: soft, no guarding, no rebound, ttp Musculoskeletal: normal inspection Neurologic: alert, oriented x3 Psychiatric: mood/affect normal Skin: no rash, warm/dry Chacho Mead MD Sep 20, 2020 06:59
[2020-09-20 07:15] LABS: BASOPHILS % (AUTO) 1.2 % (0.0-2.0); EOSINOPHILS % (AUTO) 3.8 % (0.0-3.0); HEMATOCRIT 47.1 % (42.0-52.0); HEMOGLOBIN 15.1 G/DL (14.2-18.0); LYMPHOCYTES % (AUTO) 52.3 % (20.0-45.0); MEAN CORPUSCULAR VOLUME 93 FL (80-99); MONOCYTES % (AUTO) 12.1 % (1.0-10.0); NEUTROPHILS % (AUTO) 30.6 % (45.0-75.0); PLATELET COUNT 181 K/UL (150-450); RED BLOOD COUNT 5.07 M/UL (4.70-6.10); RED CELL DISTRIBUTION WIDTH 14.6 % (11.6-14.8); WHITE BLOOD COUNT 4.7 K/UL (4.8-10.8)
[2020-09-20 07:27] LABS: ANION GAP 7 mmol/L (5-15); BLOOD UREA NITROGEN 6 mg/dL (7-18); CALCIUM 8.5 MG/DL (8.5-10.1); CARBON DIOXIDE 26 MMOL/L (21-32); CHLORIDE 106 MMOL/L (98-107); POTASSIUM 3.9 MMOL/L (3.5-5.1); SODIUM 139 MMOL/L (136-145)
[2020-09-20 08:00] VITALS: BP 124/77
[2020-09-20] MEDS: Lisinopril 20mg tab ORAL SCH (09:19)
[2020-09-20] MEDS: Sucralfate 1gm tab ORAL SCH ×3 (09:19→17:26)
[2020-09-20] MEDS: Docusate 100mg cap ORAL SCH ×2 (09:19→17:25)
[2020-09-20] MEDS: Heparin 5000 units/ml inj SUBQ SCH (09:20)
[2020-09-20] MEDS: Morphine Sulfate 2mg/ml Inj(IV/IM USE ONLY) IVP PRN ×2 (10:23→17:27)
[2020-09-20 12:00] VITALS: BP 109/72
--- NOTE | 2020-09-20 12:57 | General Progress Note ---
Subjective ROS Limited/Unobtainable: Yes Allergies: Coded Allergies: No Known Allergies (Unverified , 07/06/20) Objective Last 24 Hour Vital Signs Date Time Temp Pulse Resp B/P (MAP) Pulse Ox O2 Delivery O2 Flow Rate FiO2 09/20/20 09:19 124/77 09/20/20 09:19 95 124/77 09/20/20 09:00 Room Air 09/20/20 08:00 98.1 95 20 124/77 (93) 97 09/20/20 07:05 89 17 133/72 98 09/20/20 06:35 89 23 145/94 96 09/20/20 04:00 97.2 75 20 112/79 (90) 98 09/20/20 00:00 97.9 72 18 119/71 (87) 97 09/19/20 21:30 98.1 09/19/20 21:00 Room Air 09/19/20 20:00 97.6 78 20 132/75 (94) 99 09/19/20 19:24 74 18 111/73 96 09/19/20 18:54 74 18 111/73 96 09/19/20 17:51 74 111/73 09/19/20 16:00 98.1 74 18 111/73 (86) 96 09/19/20 15:27 96.8 09/19/20 14:34 74 18 121/80 95 09/19/20 14:04 74 18 121/80 95 Intake and Output 09/19/20 09/20/20 19:00 07:00 Intake Total 1080 ml 1500 ml Output Total 300 ml Balance 780 ml 1500 ml Intake Oral 1080 ml 1500 ml Output Urine Total 300 ml # Voids 5 Laboratory Tests 09/20/20 06:29: White Blood Count 4.7L, Red Blood Count 5.07, Hemoglobin 15.1, Hematocrit 47.1, Mean Corpuscular Volume 93, Mean Corpuscular Hemoglobin 29.8, Mean Corpuscular Hemoglobin Concent 32.1, Red Cell Distribution Width 14.6, Platelet Count 181, Mean Platelet Volume 7.9, Neutrophils (%) (Auto) 30.6L, Lymphocytes (%) (Auto) 52.3H, Monocytes (%) (Auto) 12.1H, Eosinophils (%) (Auto) 3.8H, Basophils (%) (Auto) 1.2, Sodium Level 139, Potassium Level 3.9, Chloride Level 106, Carbon Dioxide Level 26, Anion Gap 7, Blood Urea Nitrogen 6L, Creatinine 1.0, Estimat Glomerular Filtration Rate > 60, Glucose Level 113H, Calcium Level 8.5 Height (Feet): 5 Height (Inches): 5.00 Weight (Pounds): 160 General Appearance: alert EENT: normal ENT inspection Neck: supple Cardiovascular: normal rate Respiratory/Chest: lungs clear Abdomen: normal bowel sounds, non tender, soft Extremities: non-tender Assessment/Plan Problem List: (1) Esophagitis ICD Codes: K20.90 - Esophagitis, unspecified without bleeding SNOMED: 82758485 (2) Anxiety ICD Codes: F41.9 - Anxiety disorder, unspecified SNOMED: 48450105 (3) Methamphetamine abuse ICD Codes: F15.10 - Other stimulant abuse, uncomplicated SNOMED: 352717156 (4) HTN (hypertension) ICD Codes: I10 - Essential (primary) hypertension SNOMED: 15494613 (5) Seizure ICD Codes: R56.9 - Unspecified convulsions SNOMED: 74928047 (6) Schizophrenia ICD Codes: F20.9 - Schizophrenia, unspecified SNOMED: 47724781 Status: stable, progressing Assessment/Plan: s/p EGD reflux measures PPI carafate bowel regimen fu labs Ricahr Baires MD Sep 20, 2020 12:57
--- NOTE | 2020-09-20 13:07 | General Progress Note ---
Subjective Constitutional: Reports: weakness Allergies: Coded Allergies: No Known Allergies (Unverified , 07/06/20) All Systems: reviewed and negative except above Subjective eating calm Objective Last 24 Hour Vital Signs Date Time Temp Pulse Resp B/P (MAP) Pulse Ox O2 Delivery O2 Flow Rate FiO2 09/20/20 09:19 124/77 09/20/20 09:19 95 124/77 09/20/20 09:00 Room Air 09/20/20 08:00 98.1 95 20 124/77 (93) 97 09/20/20 07:05 89 17 133/72 98 09/20/20 06:35 89 23 145/94 96 09/20/20 04:00 97.2 75 20 112/79 (90) 98 09/20/20 00:00 97.9 72 18 119/71 (87) 97 09/19/20 21:30 98.1 09/19/20 21:00 Room Air 09/19/20 20:00 97.6 78 20 132/75 (94) 99 09/19/20 19:24 74 18 111/73 96 09/19/20 18:54 74 18 111/73 96 09/19/20 17:51 74 111/73 09/19/20 16:00 98.1 74 18 111/73 (86) 96 09/19/20 15:27 96.8 09/19/20 14:34 74 18 121/80 95 09/19/20 14:04 74 18 121/80 95 Intake and Output 09/19/20 09/20/20 19:00 07:00 Intake Total 1080 ml 1500 ml Output Total 300 ml Balance 780 ml 1500 ml Intake Oral 1080 ml 1500 ml Output Urine Total 300 ml # Voids 5 Laboratory Tests 09/20/20 06:29: White Blood Count 4.7L, Red Blood Count 5.07, Hemoglobin 15.1, Hematocrit 47.1, Mean Corpuscular Volume 93, Mean Corpuscular Hemoglobin 29.8, Mean Corpuscular Hemoglobin Concent 32.1, Red Cell Distribution Width 14.6, Platelet Count 181, M florinda Platelet Volume 7.9, Neutrophils (%) (Auto) 30.6L, Lymphocytes (%) (Auto) 52.3H, Monocytes (%) (Auto) 12.1H, Eosinophils (%) (Auto) 3.8H, Basophils (%) (Auto) 1.2, Sodium Level 139, Potassium Level 3.9, Chloride Level 106, Carbon Dioxide Level 26, Anion Gap 7, Blood Urea Nitrogen 6L, Creatinine 1.0, Estimat Glomerular Filtration Rate > 60, Glucose Level 113H, Calcium Level 8.5 Height (Feet): 5 Height (Inches): 5.00 Weight (Pounds): 160 General Appearance: alert EENT: normal ENT inspection Neck: normal alignment Cardiovascular: normal peripheral pulses, normal rate, regular rhythm Respiratory/Chest: chest wall non-tender, lungs clear, normal breath sounds Abdomen: normal bowel sounds, non tender, soft Extremities: normal inspection Edema: no edema noted Arm (L), no edema noted Arm (R), no edema noted Leg (L), no edema noted Leg (R), no edema noted Pedal (L), no edema noted Pedal (R), no edema noted Generalized Neurologic: motor weakness Skin: normal pigmentation, warm/dry Assessment/Plan Problem List: (1) Abdominal pain ICD Codes: R10.9 - Unspecified abdominal pain SNOMED: 60323513 (2) Hypothyroid ICD Codes: E03.9 - Hypothyroidism, unspecified SNOMED: 41828469 (3) Colitis ICD Codes: K52.9 - Noninfective gastroenteritis and colitis, unspecified SNOMED: 92932717 (4) Schizophrenia ICD Codes: F20.9 - Schizophrenia, unspecified SNOMED: 96638937 (5) Alcohol intoxication ICD Codes: F10.929 - Alcohol use, unspecified with intoxication, unspecified SNOMED: 00371042, 69167805 (6) Malnutrition ICD Codes: E46 - Unspecified protein-calorie malnutrition SNOMED: 45558704 (7) Nausea ICD Codes: R11.0 - Nausea SNOMED: 410607108 (8) Elevated LFTs ICD Codes: R79.89 - Other specified abnormal findings of blood chemistry SNOMED: 698092916, 052375262 (9) Methamphetamine abuse ICD Codes: F15.10 - Other stimulant abuse, uncomplicated SNOMED: 267852760 Status: stable, progressing Assessment/Plan: diet pain control gi sx f/u dc to [facility] Sanots Pham DO Sep 20, 2020 13:07
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
[2020-09-20 16:00] VITALS: BP 100/62
[2020-09-20 17:21] VITALS: BP 100/62
[2020-09-20] MEDS ORDERED: Miralax 17gm pkt ORAL SCH (21:00)
--- NOTE | 2020-09-20 22:42 | Psychiatric Progress Note ---
Psychiatry Progress Note Psychiatry Progress Note Neurological/Psychiatric: Reports: anxiety, depressed, emotional problems; Denies: no symptoms, headache, numbness, paresthesia, pre-existing deficit, seizure, tingling, tremors, weakness, other Allergies: Coded Allergies: No Known Allergies (Unverified , 07/06/20) Objective Data Height (Feet): 5 Height (Inches): 5.00 Weight (Pounds): 160 General Appearance: alert Additional Comments: MENTAL STATUS EXAMINATION: Patient is awake, disoriented. Mood is anxious. Affect is flat. Thought process, there is a paucity of thought content. Thought content, no suicidal or homicidal ideation. Cognition is impaired. Insight and judgment is impaired. ASSESSMENT: [place] I Polysubstance dependence. Acute toxic encephalopathy. [place] II Deferred. [place] III None. [place] IV Moderate. [place] V 20. PLAN: 1. Olanzapine 20 mg. 2. Ativan p.r.n. 3. We will discontinue the Wellbutrin. 4. Patient should be discharged when medically stable. Assessment/Plan Status: stable, progressing Agnes Longo MD Sep 20, 2020 22:42
--- NOTE | 2020-09-21 14:36 | Discharge Summary ---
Discharge Summary Discharge Summary _ DATE OF ADMISSION: 09/15/2020 DATE OF DISCHARGE: 09/20/2020 DISCHARGED BY: Dr. Pham REASON FOR ADMISSION: 50 years old male with past medical history of hypertension, seizure disorder, presented with generalized abdominal pain for 5 days , associated with nausea , vomiting and constipation. Patient was able to pass gas. Pain reported as moderate , constant and achy. Patient denied any prior abdominal surgery. Upon evaluation patient was tachycardic ; pulse oximetry was stable on room air. no fevers Laboratory work-up revealed no leukocytosis, stable hemoglobin , hematocrit and platelet count. Urinalysis revealed no evidence of urinary tract infection. Stable electrolytes. BUN 4, creatinine 1.2. Glucose 109. Troponin negative. EKG revealed sinus rhythm no acute ischemic changes AST 75 ALT 67 lipase 357. Rapid COVID-[address] of the abdomen pelvis revealed thickening of the distal esophagus possibly from esophagitis or infiltrative lesion. Small hiatal hernia. Possible mild colonic thickening. Urine toxicology screen was positive for amphetamine, benzodiazepines, barbiturates, and opiates Patient received empiric analgesic , antiemetic , empiric antibiotic, IV fluids and admitted for further management. CONSULTANTS: internet merchant Dr. Berkowitz GI specialist Dr. Baires field assembly supervisor/oncologist Dr. Mead surgery Dr. Mike psychiatrist Dr. Longo [facility] COURSE: Patient admitted to medical surgical floor. GI specialist closely followed. Patient undergone EGD, which revealed severe erosive distal esophagitis, small hiatal hernia , gastritis ,status post biopsy/ Patient was started on PPI and Carafate. Bowel regimen instituted. Patient was educated on reflux management. Biopsy of stomach antrum revealed mild chronic gastritis, no H. pylori was found. Surgeon followed. Pain management was addressed as needed. Symptomatic treatment provided. No fever or chills. Bowel regimen instituted. Abdominal exam remained benign. Surgeon cleared to start diet and advance as tolerated. Paper Bag Machine Operator followed. Patient noted to have elevated TSH with normal T3 and T4. This most likely represented sick euthyroid. No need to start thyroid replacement. Paper Bag Machine Operator recommended to repeat thyroid function as outpatient in 1 month. Seizure precaution maintained. No evidence of seizure activity while in the hospital Counts were closely monitored. Mild leukopenia noted. HIV and hepatitis test negative. Per psychiatrist, patient had polysubstance dependence and acute toxic encephalopathy. Patient was on Zyprexa. Ativan was on board as needed. Wellbutrin was discontinued. Patient clinically stabilized. Patient was able to tolerate diet. Patient had bowel movement. Pain resolved. Patient clinically stabilized and was ready for discharge to assisted living for further management. FINAL DIAGNOSES: Abdominal pain Status post EGD Severe erosive distal esophagitis Gastritis , status post biopsy Small hiatal hernia Acute toxic encephalopathy Methamphetamine abuse Polysubstance dependence Hypertension Seizure disorder Schizophrenia Anxiety Elevated TSH Fatty liver DISCHARGE MEDICATIONS: See Medication Reconciliation list. DISCHARGE INSTRUCTIONS: Patient was discharged to assisted living. Follow-up with a primary care provider. I have been assigned to dictate discharge summary for this account. I was not involved in the patient's management. Tiffanie Lynne NP Sep 21, 2020 14:36
== END 2020-09-20 19:00 | disposition home or self-care (01) | DRG 243 ==
LOC: EDBD 17:09 → EMR 17:33 → 4E 21:16 → EDBEDREQ 21:43
PROC: 0DJ08ZZ Inspection of Upper Intestinal Tract, Via Natural or Artificial Opening Endoscopic (ICD-10-PCS; principal; 2020-09-20)
DX: K20.90 Esophagitis, unspecified without bleeding (principal); K44.9 Diaphragmatic hernia without obstruction or gangrene; K63.89 Other specified diseases of intestine; F41.9 Anxiety disorder, unspecified; F20.9 Schizophrenia, unspecified; E46 Unspecified protein-calorie malnutrition; G92 Toxic encephalopathy; F15.10 Other stimulant abuse, uncomplicated
CPT/HCPCS: 36415; 74177; 80048; 80053; 80061; 80307; 81003; 83690; 83880; 84439; 84443; 84481; 84484; 85025; 85610; 85730; 86703; 86705; 86709; 86803; 87081; 87340; 93005; 94003; 94150; 96361; 96365; 96375; 96376; 99285; J2250; J2405; J2765; J7030; U0002

== ENCOUNTER 2020-09-27 09:29 | Emergency (ER) | payer MEDICAID ==
[~2020-09-27] VITALS: Ht 167.6 cm; Wt 74.8 kg
[~2020-09-27 09:29] MED LIST changes: +ZYPREXA10 MG ORAL
--- NOTE | 2020-09-27 09:33 | NUR ---
ED Nurse Note:pt. is not in the room
[2020-09-27 09:45] VITALS: BP 131/80
--- NOTE | 2020-09-27 09:45 | NUR ---
ED Nurse Note: Pt walked in from his [facility]. Ambulates well with steady gait, is A.O x4, Breathing is non labored, no signs of distress. Per Triage: Pt is experiencing N/V and constipation for x2 days.
[2020-09-27] MEDS ORDERED: Morphine Sulfate 4mg/ml Inj (IV USE ONLY) IVP ONE (10:00)
[2020-09-27] MEDS ORDERED: Mylanta II UD 30ml ORAL ONE (10:00)
[2020-09-27] MEDS ORDERED: LORazepam Inj 2mg/ml 1ml IV ONE (10:15)
[2020-09-27] MEDS ORDERED: OMEPRAZOLE40 M1 ORAL (10:33)
[2020-09-27] MEDS ORDERED: ONDANSETRON ODT4 MG BC (10:33)
--- NOTE | 2020-09-27 10:33 | Emergency Room Report ---
History of Present Illness General Chief Complaint: Abdominal Pain Source: Patient Present Illness HPI 50M PMHx of severe erosive distal esophagitis, gastritis, status post EGD 09/2020, hiatal hernia, methamphetamine abuse, polysubstance abuse, hypertension, seizures, schizophrenia, anxiety, fatty liver presents from rehab facility with chronic abdominal pain. Patient states that he last ate yesterday. Normal bowel movements. Denies diarrhea, melena, hematochezia, hematuria, dysuria, flank pain, focal weakness, headache, back pain or any other symptoms. The patient's symptoms were gradual onset, severity was moderate, duration since 1 week. Quality: Gnawing/aching Past medical history: Esophagitis, gastritis, hiatal hernia, meth use, hypertension, seizures Past surgical history: Denies Smoking: Denies Alcohol use: Denies Drug use: Positive Review of systems: CONST: No fevers or chills, No night sweats PULMONARY: No productive cough, No shortness of breath CARDIAC: No chest pain, No palpitations GI: ++ vomiting, No diarrhea , No melena_or_BRBPR : No dysuria, No hematuria, No discharge NEURO: No new_focal_weakness_or_numbness, No confusion, No vision changes 14 point Review of Systems is otherwise negative except per HPI Physical Exam: GENERAL: Awake_alert_ nontoxic, no acute distress Spo2 98% on RA -normal. Anxious appearing. EYES: Extraocular muscles are intact. Conjunctivae clear. Lids without swelling ENT: External nose and ear normal_in_appearance. Oropharynx clear. Head_atraumatic, Moist_oral_mucosa NECK: No JVD. No meningismus. No thyromegaly. Supple. Trachea midline RESP: Normal respiratory effort. Symmetric rise. No stridor. Clear_to_au scultation_No_rales_No_wheezes CARDIAC: Tachycardic rate and regular rhytm. No_significant pedal edema. ABDOMEN: Soft. Nondistended. Nontender_No_rebound_or_guarding. Negative Davidson sign. Negative Rovsing's. Negative obturator. Negative psoas. No CVA tenderness to palpation. MSK: Normal muscle tone, without rigidity. Extremities without asymmetric deformity or swelling. SKIN: Warm and dry. No visible cyanosis or pallor NEUROLOGIC: Alert, oriented x3. Motor_and_sensation_grossly_intact. No truncal ataxia. Gait_normal Psych: Normal mood and affect, normal judgment and insight - COORDINATION OF CARE Case was discussed with: Patient Any labs and imaging that were ordered were interpreted as part of the medical decision making: I reviewed previous medical records. Patient was discharged from the hospital on 09/20/[address] Pham after he received GI evaluation and EGD that showed severe erosive distal esophagitis and gastritis. H. pylori was negative. UDS is positive for meth, benzo, barbiturates, opiates during that hospitalization. CT abdomen of the pelvis revealed esophagitis and a small hiatal hernia. No acute surgical pathology. Labs are unremarkable. Patient was started on a PPI and Carafate. Bowel regimen was instituted. He was educated on reflux management. Medical Decision Making/Plan: Differential diagnosis includes cholecystitis, choledocholithiasis, hepatitis, small bowel obstruction, volvulus, AAA, pancreatitis, atypical appendicitis, gastroparesis, gastritis, peptic ulcer disease, among others. Patient is well appearing with stable vital signs. Abdominal exam is non periton eal with no guarding or rebound. He is able to tolerate p.o. No focal neurologic deficits. Afebrile. No CVA tenderness to palpation. Labs show no acute abnormalities. EKG shows no acute ischemia or arrhythmia. Suspect recurrence of gastritis symptoms. The patient denies any bloody stool and has no pain out of proportion to exam, and no significant risk factors for mesenteric ischemia such as atrial fibrillation or severe PAD/PVD (peripheral arterial / vascular disease), thus definitive workup to rule out mesenteric ischemia was not pursued. Patient is afebrile, without any significant tenderness in the RUQ, and a negative [place] sign. The patients presentation does not appear to be consistent with acute cholecystitis and thus definitive imaging to rule it out was not pursued. The patient has no significant risk factors for AAA (abdominal aortic aneurysm) such as age over 50 with history of hypertension, connective tissue disorder, or 1st degree relative with AAA. the patient has normal dorsalis pedis pulses, no radiation of pain to the back, and no pulsatile mass felt on exam. The patients profile was overall low risk for AAA and definitive workup was not pursued. The patients symptoms are not consistent with ACS (acute coronary syndrome), symptoms are not exertional, EKG without obvious ischemic change. The patients current symptoms and exam do not appear to be from an emergent process or condition requiring immediate surgery. Although I considered abdominal imaging, given the patients benign exam, the patients presentation does not warrant urgent / immediate imaging. At this time, the risk of CT scan and associated radiation likely outweigh the benefits, and thus CT imaging was deferred. The patients symptoms significantly improved, exam upon discharge revealed a benign abdomen without any surgical or peritoneal signs , and tolerating oral fluids. The patient appears stable for discharge with abdominal_recheck_in_24_hours, and understand to return to the ED immediately if symptoms change or worsen. 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: Yes COVID-19 Screening: Negative COVID-19 COVID-19 Testing Source: nasal Nursing Documentation-[facility] Past Medical History: No History, Except For Hx Cardiac Problems: Yes Hx Hypertension: Yes Hx Cancer: No Hx Gastrointestinal Problems: Yes Hx Seizures: Yes Physical Exam Vital Signs Date Time Temp Pulse Resp B/P (MAP) Pulse Ox O2 Delivery O2 Flow Rate FiO2 09/27/20 09:37 97.0 108 17 136/80 (98) 99 Room Air Sp02 EP Interpretation: reviewed, normal Medical Decision Making Diagnostic Impression: Primary Impression: Abdominal pain Additional Impressions: Esophagitis Anxiety EKG Diagnostic Results Troponin ordered: Yes When was troponin ordered?: Sep 27, 2020 Rate: normal PA Scribe Text 12-lead EKG (interpreted by me) Time: 1016 Indication: Rhythm analysis Tracing visualized and Interpreted by me. Rhythm: Normal sinus rhythm Rate: 88 bpm QTc: 464 Morphology: No_significant_ST_elevations_or_depressions, No STEMI Impression: Normal_sinus_rhythm_without_significant_abnormality Rhythm Strip Diag. Results Rhythm Strip Time: 10:32 EP Interpretation: yes Rate: 90 Rhythm: NSR, no PVC's, no ectopy Reevaluation Time: 10:32 Last Vital Signs Date Time Temp Pulse Resp B/P (MAP) Pulse Ox O2 Delivery O2 Flow Rate FiO2 09/27/20 09:37 97.0 108 17 136/80 (98) 99 Room Air Status: improved Disposition: HOME, SELF-CARE Admit Decision Time: 11:00 Condition: Stable Scripts Omeprazole (OMEPRAZOLE) 40 Mg Capsule. 40 MG ORAL DAILY for Gerd for 10 Days, #10 CAP Prov: Tamar Mak D.O. 09/27/20 Ondansetron Odt* (ZOFRAN ODT*) 4 Mg Tab.rapdis 4 MG BC EVERY 6 HOURS PRN for Nausea & Vomiting, #10 TAB 0 Refills Prov: Tamar Mak D.O. 09/27/20 Patient Instructions: Abdominal Pain, Adult, Gastritis, Adult, [id number] Additional Instructions: Instructions for patient/applications scientist: Follow up with your physician in 1-2 days. Follow-up with your doctor sooner if your condition requires a more timely clinical reevaluation. Return to the emergency department immediately if you feel that your condition is worsening or if you have any new or concerning symptoms. Review your discharge instructions and take any prescriptions given as instructed. [facility] PROVIDES FREE OR LOW-COST HEALTH SERVICES TO PEOPLE WHO CAN SHOW PROOF THAT THEY LIVE IN [facility]. TO FIND MORE CLINICS PARTNERED WITH [facility] TO PROVIDE SERVICE, PLEASE CALL . Tamar Mak D.O. Sep 27, 2020 10:33
[2020-09-27 10:37] LABS: BASOPHILS % (AUTO) 1.1 % (0.0-2.0); EOSINOPHILS % (AUTO) 1.5 % (0.0-3.0); HEMATOCRIT 45.5 % (42.0-52.0); HEMOGLOBIN 14.7 G/DL (14.2-18.0); LYMPHOCYTES % (AUTO) 28.5 % (20.0-45.0); MEAN CORPUSCULAR VOLUME 92 FL (80-99); MONOCYTES % (AUTO) 9.3 % (1.0-10.0); NEUTROPHILS % (AUTO) 59.6 % (45.0-75.0); PLATELET COUNT 326 K/UL (150-450); RED BLOOD COUNT 4.93 M/UL (4.70-6.10); RED CELL DISTRIBUTION WIDTH 13.9 % (11.6-14.8)
[2020-09-27 10:48] LABS: ANION GAP 8 mmol/L (5-15); BLOOD UREA NITROGEN 4 mg/dL (7-18); CALCIUM 8.3 MG/DL (8.5-10.1); CARBON DIOXIDE 26 MMOL/L (21-32); CHLORIDE 107 MMOL/L (98-107); POTASSIUM 3.4 MMOL/L (3.5-5.1); SODIUM 141 MMOL/L (136-145)
[2020-09-27 10:54] LABS: ALANINE AMINOTRANSFERASE 63 U/L (12-78); ALBUMIN/GLOBULIN RATIO 0.7 (1.0-2.7); ALKALINE PHOSPHATASE 92 U/L (46-116); ASPARTATE AMINO TRANSFERASE 37 U/L (15-37); BILIRUBIN,TOTAL 0.4 MG/DL (0.2-1.0)
[2020-09-27] MEDS ORDERED: Lisinopril 10mg tab ORAL ONE (11:15)
[2020-09-27] MEDS ORDERED: Metoprolol Succinate XL 50mg tab ORAL ONE (11:15)
[2020-09-27 11:17] VITALS: BP 135/91
--- NOTE | 2020-09-28 12:58 | Cardiology Report ---
APPROVED REPORT EKG Measurement Heart [id number] <Conclusion> Normal sinus rhythm Normal ECG
== END 2020-09-27 11:17 | disposition home or self-care (01) ==
LOC: EMR 09:55
DX: R10.9 Unspecified abdominal pain (principal); K20.90 Esophagitis, unspecified without bleeding; F41.9 Anxiety disorder, unspecified; I11.9 Hypertensive heart disease without heart failure; G40.909 Epilepsy, unspecified, not intractable, without status epilepticus; Z79.899 Other long term (current) drug therapy
CPT/HCPCS: 36415; 80053; 83690; 84484; 85025; 93005; 96361; 96374; 96375; J2270; J2405; J7030; S0028; Z7502; 99284

== ENCOUNTER 2020-11-01 14:30 | Emergency (ER) | payer MEDICAID ==
[~2020-11-01] VITALS: Ht 167.6 cm; Wt 74.8 kg
[~2020-11-01 14:30] MED LIST changes: +OMEPRAZOLE40 M1 ORAL; +ONDANSETRON ODT4 MG BC
[2020-11-01 14:45] VITALS: BP 106/74
--- NOTE | 2020-11-01 15:17 | Emergency Room Report ---
History of Present Illness General Chief Complaint: Medication Refill Source: Patient Present Illness HPI 50-year-old male presents to the emergency department requesting medication refill for atenolol. Patient reports he takes 100 mg daily. Patient reports he has been out of his medication x3 days. Patient denies headache, chest pain, dyspnea, dizziness or syncope. Patient reports past medical history of HTN, alcohol dependence, and w/d hx. Patient denies having any medical symptoms at this time. Allergies: Coded Allergies: No Known Allergies (Unverified , 07/06/20) COVID-19 Screening Contact w/high risk pt: No Experienced COVID-19 symptoms?: No COVID-19 Testing performed TOP LIFT COMPRESSOR: No Patient History Past Medical History: see triage record Past Surgical History: none Pertinent Family History: none Reviewed Nursing Documentation: PMH: Agreed; PSxH: Agreed Nursing Documentation-PMH Past Medical History: No History, Except For Hx Cardiac Problems: Yes Hx Hypertension: Yes Hx Cancer: No Hx Gastrointestinal Problems: Yes Hx Seizures: Yes Review of Systems All Other Systems: negative except mentioned in HPI Physical Exam Vital Signs Date Time Temp Pulse Resp B/P (MAP) Pulse Ox O2 Delivery O2 Flow Rate FiO2 11/01/20 14:41 98.2 108 19 106/74 (85) 100 Room Air Sp02 EP Interpretation: reviewed, normal General Appearance: no apparent distress, alert, GCS 15, non-toxic Head: normocephalic, atraumatic Eyes: bilateral eye normal inspection, bilateral eye PERRL ENT: hearing grossly normal, normal voice Neck: full range of motion Respiratory: chest non-tender, lungs clear, normal breath sounds, speaking full sentences Cardiovascular #1: regular rate, rhythm, no edema Musculoskeletal: normal range of motion, gait/station normal, non-tender Neurologic: alert, motor strength/tone normal, oriented x3, sensory intact, responsive, speech normal Psychiatric: judgement/insight normal, memory normal, no delusions Skin: no rash, normal color Medical Decision Making PA Attestation Dr. Fields Is my supervising Physician whom patient management has been discussed with. Diagnostic Impression: Primary Impression: Encounter for medication refill ER Course 50-year-old male presents to the emergency department requesting medication refill for atenolol. Patient reports he takes 100 mg daily. Patient reports he has been out of his medication x3 days. Patient denies headache, chest pain, dyspnea, dizziness or syncope. Patient reports past medical history of HTN, alcohol dependence, and w/d hx. Patient denies having any medical symptoms at this time. Ddx considered but are not limited to: medication noncompliance, HTN, arrhythmia, drug seeking, OD just to name a few. Vital signs: are WNL, pt. is afebrile H&PE are most consistent with need for medication refill. ORDERS: none required at this time, the diagnosis is clinical ED INTERVENTIONS: Atenolol 100mg PO DISCHARGE: At this time pt. is stable for d/c to home. Will provide printed patient care instructions, and any necessary prescriptions. Care plan and follow up instructions have been discussed with the patient prior to discharge. Last Vital Signs Date Time Temp Pulse Resp B/P (MAP) Pulse Ox O2 Delivery O2 Flow Rate FiO2 11/01/20 14:41 98.2 108 19 106/74 (85) 100 Room Air Status: improved Disposition: HOME, SELF-CARE Condition: Stable Scripts Atenolol* (TENORMIN*) 100 Mg Tablet 100 MG ORAL DAILY, #30 TAB Prov: Amira De La Vega 11/01/20 Referrals: Carlyle Piña. [facility] + [facility] Patient Instructions: Medicine Refill at the Emergency Department Additional Instructions: Take medications as directed. Follow up with a Primary Care Provider in 3-5 days, even if your symptoms have resolved. --Please review list of primary care clinics, if you do not already have a primary care provider Return sooner to ED if new symptoms occur, or current symptoms become worse. - Please note that this Emergency Department Report was dictated using [employer] repairer technology software, occasionally this can lead to erroneous entry secondary to interpretation by the dictation equipment. Amira De La Vega Nov 01, 2020 15:17
[2020-11-01] MEDS ORDERED: ATENOLOL100 MG ORAL (15:18)
--- NOTE | 2020-11-01 15:30 | NUR ---
ED Nurse Note: pt ambulated to ed stating he needs a medication refill for atenolol 100mg. Pt is AOx4, calm and cooperative to care, VSs, on RA, afebrile on triage.
[2020-11-01 15:33] VITALS: BP 106/74
== END 2020-11-01 15:40 | disposition home or self-care (01) ==
LOC: EMR 15:39
DX: Z76.0 Encounter for issue of repeat prescription (principal); I11.9 Hypertensive heart disease without heart failure; G40.909 Epilepsy, unspecified, not intractable, without status epilepticus
CPT/HCPCS: 99282

== ENCOUNTER 2020-11-15 08:26 | Emergency (ER) | payer MEDICAID ==
[~2020-11-15] VITALS: Ht 167.6 cm; Wt 71.7 kg
[2020-11-15] MEDS ORDERED: Lidocaine 2% Visc 15ml soln ORAL ONE (09:00)
[2020-11-15] MEDS ORDERED: Mylanta II UD 30ml ORAL ONE (09:00)
[2020-11-15] MEDS ORDERED: Dicyclomine HCl 10mg/5ml oral soln ORAL ONE (09:00)
--- NOTE | 2020-11-15 09:00 | NUR ---
ED Nurse Note: Pt walked into the Ed due to abd pain x 2 days. Pt stated; he been having the same issue for a long time. pt denied n/v/fever/dyspnea. Pt vitals are stable. we will keep monitoring the pt.
[2020-11-15 09:02] VITALS: BP 135/89
--- NOTE | 2020-11-15 09:04 | Emergency Room Report ---
History of Present Illness General Chief Complaint: Abdominal Pain Source: Patient Present Illness HPI Disclaimer: Please note that this report is being documented using Imindi technology. This can lead to erroneous entry secondary to incorrect interpretation by the dictating instrument. HPI: 50-year-old male history of distal esophagitis, chronic gastritis, hiatal hernia substance abuse alcohol abuse seizure disorder and schizophrenia presents from [facility] complaining of abdominal discomfort. Patient had EGD September 2020 showing evidence of chronic gastritis but negative for H. pylori other major findings. Patient states he does not take any medications to treat his gastritis. He states the abdominal pain is constant and unchanging. He states his real reason for coming today is requesting Ativan for alcohol abuse. He states he drinks 2 pints of alcohol daily for several years. Has completed outpatient programs in the past. Denies recent seizure activity though has had seizure disorder in the past. He last drank prior to arrival. Denies vomiting or diarrhea or fever or chills. States he wants Ativan so that he will not drink later. Denies other substance use at this time. No longer follows up with psychiatry or treatment services. 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 EOMI. Cardiovascular: RRR. S1 and S2 normal. No murmur appreciated Resp: Normal work of breathing. No cough, wheezing or crackles appreciated Abdomen: Abdomen is soft, nondistended. Nontender Skin: Intact. No abrasions, laceration or rash over the exposed skin MSK: Normal tone and bulk. Moving all extremities. No obvious deformity. Neuro: Awake and alert. Mentating appropriately. No tremors. No agitation. Medical Decision Making Diagnostic Impression: Primary Impression: Abdominal pain Additional Impression: Alcohol abuse ER Course 50-year-old male presents to ED requesting Ativan for alcohol withdrawal. Patient has no signs of acute withdrawal. No tremors, stable vital signs, well- appearing and last drank alcohol prior to arrival. Regarding his abdominal pain the patient states it is constant, no change and no longer takes medications for it. I offered to perform screening labs but patient declined. I offered to refill antacids but the patient declined. I offered to provide resources for outpatient treatment counseling but he states he does not need them. Patient became frustrated when hearing he would not be getting Ativan prescription. He took his belongings and left the emergency department prior to receiving discharge paperwork. Last Vital Signs Date Time Temp Pulse Resp B/P (MAP) Pulse Ox O2 Delivery O2 Flow Rate FiO2 11/15/20 08:45 98.8 87 20 135/89 (104) 98 Room Air Disposition: HOME, SELF-CARE Condition: Stable Carlos Pacheco MD Nov 15, 2020 09:04
[2020-11-15 09:07] VITALS: BP 135/89
--- NOTE | 2020-11-15 09:07 | NUR ---
ER DISCHARGE NOTE: Patient is cleared to be discharged per ERMD, pt is aox4, on room air, with stable vital signs. pt refused to sign the D/C paper. pt id band removed. pt is able to ambulate with steady gait. pt took all belongings.
== END 2020-11-15 09:06 | disposition home or self-care (01) ==
LOC: EMR 08:59
DX: R10.9 Unspecified abdominal pain (principal); F10.10 Alcohol abuse, uncomplicated; I11.9 Hypertensive heart disease without heart failure; Z79.899 Other long term (current) drug therapy
CPT/HCPCS: 99281

== ENCOUNTER 2020-11-19 04:14 | Emergency (ER) | payer MEDICAID ==
[~2020-11-19] VITALS: Ht 167.6 cm; Wt 63.5 kg
[2020-11-19 04:30] VITALS: BP 130/90
[2020-11-19] MEDS ORDERED: chlordiazePOXIDE 25mg Cap ORAL ONE (04:30)
[2020-11-19] MEDS ORDERED: Thiamine 100mg tab ORAL ONE (04:30)
[2020-11-19] MEDS ORDERED: LORazepam 1mg tab ORAL ONE (04:30)
--- NOTE | 2020-11-19 04:30 | NUR ---
Nurse Note: Pt walked in c/o ETOH withdrawls; pt stated his last drink was 6 hrs ago. Pt has slight tremors. Pt stated he is a daily drinker. Pt stated "I want medication to help me through the night so I can start my detox".
--- NOTE | 2020-11-19 04:30 | Emergency Room Report ---
History of Present Illness General Chief Complaint: Medication Refill Present Illness HPI 50-year-old male here requesting benzodiazepines for alcohol withdrawal. Patient says his last drink was 6 hours ago. He drinks daily. Says that he has suffered alcohol withdrawal seizures in the past. Claims that he will be attending an outpatient alcohol rehab program tomorrow. He is requesting 1 dose of Ativan "just to get me through the night." Denies headaches, vision changes, fevers, chills, chest pain, palpitation, shortness of breath, back pain, abdominal pain, nausea, vomiting, diarrhea, dysuria. Allergies: Coded Allergies: No Known Allergies (Unverified , 07/06/20) COVID-19 Screening Contact w/high risk pt: No Experienced COVID-19 symptoms?: No Nursing Documentation-PMH Hx Cardiac Problems: Yes Hx Hypertension: Yes Hx Cancer: No Hx Gastrointestinal Problems: Yes Hx Seizures: Yes Review of Systems All Other Systems: negative except mentioned in HPI Physical Exam Sp02 EP Interpretation: reviewed, normal General Appearance: no apparent distress, alert, non-toxic Head: normocephalic, atraumatic Eyes: bilateral eye normal inspection, bilateral eye PERRL ENT: hearing grossly normal, normal pharynx, no angioedema, normal voice Neck: full range of motion, supple/symm/no masses Respiratory: chest non-tender, lungs clear, normal breath sounds, speaking full sentences Cardiovascular #1: regular rate, rhythm, no edema Cardiovascular #2: 2+ carotid (R), 2+ carotid (L), 2+ radial (R), 2+ radial (L), 2+ dorsalis pedis (R), 2+ dorsalis pedis (L) Gastrointestinal: normal bowel sounds, non tender, soft, non-distended, no guarding, no rebound Rectal: deferred Genitourinary: normal inspection, no CVA tenderness Musculoskeletal: back normal, normal range of motion, gait/station normal, non- tender Neurologic: alert, motor strength/tone normal, oriented x3, sensory intact, responsive, speech normal Psychiatric: judgement/insight normal, memory normal, mood/affect normal, no suicidal/homicidal ideation, other - Odd affect but answers questions appropriately Lymphatic: no adenopathy Medical Decision Making Diagnostic Impression: Primary Impression: Alcohol withdrawal ER Course 50-year-old male requesting benzodiazepines for alcohol withdrawal. Patient had normal neurologic examination without any tremulousness. He was ambulating without difficulty throughout the emergency department. Answering questions appropriately. No evidence of actual alcohol withdrawal at this time. Patient was given 2 mg of Ativan and 50 mg of Librium p.o. Given thiamine and folate p.o. as well. Patient claims that he will be attending alcohol rehab tomorrow. Told to attend this rehab. Instructed to return to the emergency department with worsening symptoms or seizures. He expressed understanding and was discharged. Disposition: HOME, SELF-CARE Condition: Stable Referrals: [facility] Real Pulido M.D. Nov 19, 2020 04:30
[2020-11-19 04:45] VITALS: BP 130/90
--- NOTE | 2020-11-19 04:45 | NUR ---
ED Nurse Note: Pt cleared by health care Provider for discharge. DC instructions/prescription was given and explained to pt and verbalized understanding of teachings. Instructed pt to follow up with medical professional and provided referals. All medical deviecs such as ID band removed. Pt is AAO x4, ambulatory and left with all personal belongings. Pt denies being homeless
== END 2020-11-19 04:45 | disposition home or self-care (01) ==
LOC: EMR 04:25
DX: F10.139 Alcohol abuse with withdrawal, unspecified (principal); I11.9 Hypertensive heart disease without heart failure
CPT/HCPCS: 99282

== ENCOUNTER 2020-11-22 22:48 | Emergency (ER) | payer MEDICAID ==
[~2020-11-22] VITALS: Ht 165.1 cm; Wt 68.0 kg
--- NOTE | 2020-11-22 22:50 | NUR ---
ED Nurse Note: Patient [address] with c/o anxiety. Pt admitted using drugs before coming in. Pt has hx of psych prob. Pt is poor historian and has flight of ideas. Denies AH/VH/ SI/HI. PAtient is delusional. Patient is AAOX4 and ambulatory.
--- NOTE | 2020-11-22 22:54 | Emergency Room Report ---
History of Present Illness General Chief Complaint: Substance Abuse Source: Patient Present Illness HPI Patient is a 50-year-old male brought in by EMS for increased foot discomfort. Patient had prior history of substance abuse as well as alcohol abuse. Denies any suicidal thoughts. Reports having some bilateral foot pain. States he had previously been on medications. Had recently been seen at this emergency department had been given prescription for benzodiazepines. He had not been having any diarrhea or vomiting. Denies any bloody stools. Allergies: Coded Allergies: No Known Allergies (Unverified , 07/06/20) COVID-19 Screening Contact w/high risk pt: No Experienced COVID-19 symptoms?: No Patient History Past Medical History: see triage record Reviewed Nursing Documentation: PMH: Agreed; PSxH: Agreed Nursing Documentation-PMH Hx Cardiac Problems: Yes Hx Hypertension: Yes Hx Cancer: No Hx Gastrointestinal Problems: Yes Hx Seizures: Yes Review of Systems All Other Systems: negative except mentioned in HPI Physical Exam General Appearance: well appearing, no apparent distress, alert, GCS 15 Head: normocephalic, atraumatic ENT: hearing grossly normal, normal voice Neck: full range of motion, supple Respiratory: chest non-tender, lungs clear, no respiratory distress, speaking full sentences Cardiovascular #1: normal inspection, regular rate, rhythm Gastrointestinal: normal inspection, soft Musculoskeletal: normal inspection, swelling, no calf tenderness Neurologic: alert, motor strength/tone normal, 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 Differential diagnosis include was not limited to substance abuse, alcohol withdrawal, among others. Patient has a benign exam and does not appear to require any imaging or laboratory testing at this time. Patient denies any suicidal thoughts and denies thoughts of harming others. Patient states that he would like a prescription for Adderall. Patient was given Ativan in the emergency department due to some agitation. He declined other medications.Patient appears to be stable for discharge and does not appear to require inpatient psychiatric treatment at this time. This medical record is generated with [employer] cardiovascular sonographer software. There may be some cardiovascular sonographer discrepancies related to use of this software Status: improved Disposition: HOME, SELF-CARE Condition: Stable Geovanny Macario MD Nov 22, 2020 22:54
[2020-11-22 23:00] VITALS: BP 131/60
[2020-11-22] MEDS ORDERED: ZyPREXA Zydis 5mg tab ORAL ONE (23:00)
[2020-11-22] MEDS ORDERED: ZyPREXA Zydis 10mg tab ORAL ONE (23:00)
[2020-11-22] MEDS ORDERED: LORazepam 1mg tab ORAL ONE (23:00)
--- NOTE | 2020-11-22 23:00 | NUR ---
ED Nurse Note: ERMD at bedside
[2020-11-22 23:36] VITALS: BP 131/60
== END 2020-11-22 23:36 | disposition home or self-care (01) ==
LOC: EDBD 22:48 → EDUNIT# 22:48 → EMR 23:05
DX: F19.10 Other psychoactive substance abuse, uncomplicated (principal); M25.572 Pain in left ankle and joints of left foot; M25.571 Pain in right ankle and joints of right foot; I10 Essential (primary) hypertension; G40.909 Epilepsy, unspecified, not intractable, without status epilepticus
CPT/HCPCS: 99282

== ENCOUNTER 2020-12-23 06:11 | Emergency (ER) | payer MEDICAID ==
[~2020-12-23] VITALS: Ht 167.6 cm; Wt 65.8 kg
[2020-12-23] MEDS ORDERED: LISINOPRIL20 MG ORAL (07:41)
[2020-12-23] MEDS ORDERED: TENORMIN25 MG ORAL (07:41)
--- NOTE | 2020-12-23 07:41 | Emergency Room Report ---
History of Present Illness General Chief Complaint: Medication Refill Source: Patient Present Illness HPI 50-year-old male with past medical history of alcohol dependence, hypertension, and schizophrenia presents to the emergency department with multiple complaints. First request is for medication refill for his antihypertensive medication. Patient states that he has been out of his atenolol 50 mg twice daily as well as lisinopril 20 mg twice daily for the past 2 days. He denies any physical complaints of headache, lethargy, nausea, vomiting, vision changes, neck pain, back pain, chest pain, melena, hematochezia, hematemesis, dysuria, hematuria, rash or any other symptoms. Second request is something for his anxiety. Patient states that he is an alcoholic and drinks 2 pints per day. Last drink was 12 hours prior to arrival. He states that he is feeling tremulous, however denies any auditory or visual hallucinations, recent head trauma, or other issue. The patient's symptoms were gradual onset, severity was moderate, duration since 2 days. Quality: Denies pain. Tremulous. Denies recent withdrawal seizure Past medical history: Alcohol dependence, hypertension, schizophrenia Past surgical history: Denies Smoking: Quit 1 month ago Alcohol use: Heavy. Last drink was 2 pints 12 hours ago Drug use: Meth Review of systems: CONST: No fevers or chills, No night sweats PULMONARY: No productive cough, No shortness of breath CARDIAC: No chest pain, No palpitations GI: No vomiting, No diarrhea , No melena_or_BRBPR : No dysuria, No hematuria, No discharge NEURO: No new_focal_weakness_or_numbness, No confusion, No vision changes 14 point Review of Systems is otherwise negative except per HPI Physical Exam: GENERAL: Awake_alert_ nontoxic, no acute distress Spo2 96% on RA -normal EYES: Extraocular muscles are intact. Conjunctivae clear. Lids without swelling ENT: External nose and ear normal_in_appearance. Oropharynx clear. Head_atraumatic, Moist_oral_mucosa NECK: No JVD. No meningismus. No thyromegaly. Supple. Trachea midline. No mid line cervical, thoracic, lumbar spinal step-off RESP: Normal respiratory effort. Symmetric rise. No stridor. Clear_to_auscultati on_No_rales_No_wheezes CARDIAC: Regular rate and regular rhytm. No_significant pedal edema. ABDOMEN: Soft. Nondistended. Nontender_No_rebound_or_guarding. MSK: Normal muscle tone, without rigidity. Extremities without asymmetric deformity or swelling. SKIN: Warm and dry. No visible cyanosis or pallor NEUROLOGIC: Alert, oriented x3. Motor_and_sensation_grossly_intact. No truncal ataxia. Gait_normal Psych: Normal mood and affect, normal judgment and insight - COORDINATION OF CARE Case was discussed with: Patient Medical Decision Making/Plan: Differential diagnosis includes essential hypertension, malignant hypertension, hypertensive emergency, end-organ damage (such as renal failure, cardiac ischemia, pulmonary edema, hypertensive encephalopathy, intracranial hemorrhage, among others), medication noncompliance, among others. Patient is alert and oriented, no neuro deficits, no severe headache, no evidence of hypertensive encephalopathy or intracranial bleeding. No volume ove rload, chest pain, or shortness of breath, no evidence of cardiac ischemia or CHF. On history and exam , the patient exhibits no features of end-organ damage. They have no no chest pain, shortness of breath, or evidence of volume overload. The patient was given a refill for his chronic antihypertensive medication and appears to be stable for discharge home, and blood pressure re check with their PMD in 1-2 days as instructed. He was also given Ativan 2 mg p.o. secondary to anxiety and observed in the [facility] department with serial neurologic exams. Presentation is not consistent with alcohol withdrawal or delirium tremens. He is clinically sober, without any complications such as alcohol intoxication, head injury, GI bleeding, or intracranial bleeding. Patient was advised not to drink and drive. He verbalizes his understanding. He states that he is going to have rehab facility to get clean from alcohol and methamphetamines tomorrow. Strict return ER precautions were discussed. Pertinent results reviewed with the patient. I educated the patient on the current treatment plan including the risks, benefits, and alternatives. I also discussed the extent and limitations of the current evaluation. The patient expressed understanding and agreement with plan. I recommended PMD follow-up within 1-2 days. Also advised that the patient return to the Emergency Department as soon as possible if they experience any new, persistent, or worsening symptoms. 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 COVID-19 Screening: Positive COVID-19 COVID-19 Testing Source: 3 days ago neg nasal/boarding home Nursing Documentation-PMH Hx Cardiac Problems: Yes Hx Hypertension: Yes Hx Cancer: No Hx Gastrointestinal Problems: Yes Hx Neurological Problems: Yes - substance/alcohol abuse Hx Seizures: Yes Physical Exam Vital Signs Date Time Temp Pulse Resp B/P (MAP) Pulse Ox O2 Delivery O2 Flow Rate FiO2 12/23/20 07:13 97.9 83 20 151/92 (111) 96 Room Air Sp02 EP Interpretation: reviewed, normal Medical Decision Making Diagnostic Impression: Primary Impression: Alcohol abuse Additional Impressions: Anxiety Esophagitis HTN (hypertension) Methamphetamine abuse Encounter for medication refill Last Vital Signs Date Time Temp Pulse Resp B/P (MAP) Pulse Ox O2 Delivery O2 Flow Rate FiO2 12/23/20 07:13 97.9 83 20 151/92 (111) 96 Room Air Disposition: HOME, SELF-CARE Admit Decision Time: 07:39 Condition: Stable Scripts Lisinopril (LISINOPRIL*) 20 Mg Tablet 20 MG ORAL BID for Hypertension for 10 Days, #20 TAB Prov: Tamar Mak D.O. 12/23/20 Atenolol (Tenormin) 25 Mg Tablet 50 MG ORAL BID for 14 Days, #40 TAB Prov: Tamra Mak D.O. 12/23/20 Patient Instructions: Alcohol Abuse and Nutrition, Alcohol Use Disorder, Hypertension, Medicine Refill at the Emergency Department Additional Instructions: Instructions for patient/adult nurse practitioner: Follow up with your physician in 1-2 days. Do not drink and drive. Stop taking alcohol. Stop doing methamphetamines. These are bad for your health. Follow-up with your doctor sooner if your condition requires a more timely clinical reevaluation. Return to the emergency department immediately if you feel that your condition is worsening or if you have any new or concerning symptoms. Review your discharge instructions and take any prescriptions given as instruct ed. [facility] PROVIDES FREE OR LOW-COST HEALTH SERVICES TO PEOPLE WHO CAN SHOW PROOF THAT THEY LIVE IN [facility]. TO FIND MORE CLINICS PARTNERED WITH [facility] TO PROVIDE SERVICE, PLEASE CALL . Tamar Mak D.O. Dec 23, 2020 07:41
[2020-12-23] MEDS ORDERED: Lisinopril 10mg tab ORAL ONE (07:45)
[2020-12-23] MEDS ORDERED: Atenolol 25mg tab ORAL ONE (07:45)
[2020-12-23] MEDS ORDERED: LORazepam 1mg tab ORAL ONE (07:45)
[2020-12-23 07:52] VITALS: BP 156/84
--- NOTE | 2020-12-23 07:55 | NUR ---
ER DISCHARGE NOTE: Patient is cleared to be discharged per ERMD, pt is aox4, on room air, with stable vital signs. pt was given dc and prescription instructions, pt was able to verbalize understanding. pt is able to ambulate with steady gait. pt took all belongings.
== END 2020-12-23 07:57 | disposition home or self-care (01) ==
LOC: EMR 07:57
DX: F10.10 Alcohol abuse, uncomplicated (principal); F41.9 Anxiety disorder, unspecified; K20.90 Esophagitis, unspecified without bleeding; I10 Essential (primary) hypertension; F15.10 Other stimulant abuse, uncomplicated; Z76.0 Encounter for issue of repeat prescription; G40.909 Epilepsy, unspecified, not intractable, without status epilepticus; I11.9 Hypertensive heart disease without heart failure; Z86.16 Personal history of COVID-19; Z79.899 Other long term (current) drug therapy
CPT/HCPCS: 99282